=== PATIENT | female | born 1945 | race Caucasian/White ===

== ENCOUNTER 2017-10-14 22:59 | Inpatient (IN) | payer OTHER ==
[~2017-10-14] VITALS: Ht 154.9 cm; Wt 70.1 kg
[~2017-10-14 22:59] MED LIST: AMLO-114 PO; ASPEC81 PO; CLOP1TAB15 PO; CRG25 PO; LISI-725 PO; METH10TA6 PO; METO-157 PO; OXYC-57 PO; SIMV40TA2 PO
[2017-10-14] MEDS ORDERED: ASPIRIN 324 MG CHEW PO STA (23:13)
[2017-10-14] MEDS ORDERED: NITROGLYCERIN 0.4 MG SL PER TAB CHARGE SL PRN (23:15)
--- NOTE | 2017-10-14 23:18 | EMERGENCY ROOM VISIT NOTE ---
History Report prepared by Lilian: Raudel Whalen Under the Supervision of: Dr. Brennon Ruvalcaba M.D. First contact with patient: 23:06 Chief Complaint: CARDIAC ASSESSMENT Stated Complaint: SOB, LEFT ARM PAIN, TERRIBLE INDIGESTION History of Present Illness The patient is a 72 year old female with a history of COPD, lung cancer, and asthma who presents to the Emergency Room with complaints of persistent chest pain that started an hour ago. The patient describes the pain as a tight band- like pain and not sharp. She says that she thought it was indigestion initially. The patient notes that she has been short of breath as well, with some left arm pain. She notes that she uses oxygen sporadically at home. Per the nursing staff, the patient had an oxygen saturation of 87% prior to arrival. The patient says that she has had surgery to remove 2/3rd of her right lung due to the cancer. She denies any runny nose or recent flu-like symptoms. The patient states that she took Ibuprofen prior to arrival. She says that she takes Ativan on occasion, and took one tonight. The patient is an ex-smoker, and smoked for 40 years. She is here visiting family, and traveled here 2 days ago from the [facility]. The patient has a history of cardiac stenting many years ago, and has not had a recent evaluation. She also has a history of a left carotid endarterectomy. Source of History: patient, family, nursing staff Onset: An hour ago Position: chest Symptom Intensity: hx of COPD Quality: other (initially thought was indigestion) Timing: other (persistent) Associated Symptoms: + SOB Note: Associated symptoms: Left arm pain. 87% on room air. Denies runny nose or recent flu-like symptoms. Review of Systems See HPI for pertinent positives & negatives. A total of 10 systems reviewed and were otherwise negative. Past Medical & Surgical Medical Problems: (1) Asthma (2) Chest pain (3) COPD (chronic obstructive pulmonary disease) (4) COPD exacerbation (5) HTN (hypertension) (6) NSTEMI (non-ST elevated myocardial infarction) Surgical Problems: (1) History of left-sided carotid endarterectomy (2) Lung cancer Family History Family history omitted secondary to patient's advanced age. Social History Smoking Status: Former Smoker Drug Use: none Marital Status: Housing Status: lives with family Current/Historical Medications Scheduled Umeclidinium Baden (Incruse Ellipta), 1 PUFF INH DAILY Scheduled PRN Ibuprofen (Advil), 200-600 MG PO Q4H PRN for Pain Ranitidine Hcl (Zantac), 75 MG PO DAILY PRN for Indigestion Allergies Coded Allergies: No Known Allergies (Unverified , 10/14/17) Physical Exam Vital Signs Date Time Temp Pulse Resp B/P (MAP) Pulse Ox O2 Delivery O2 Flow Rate FiO2 10/15/17 00:38 91 22 184/83 100 Nasal Cannula 4.0 10/14/17 23:49 74 18 154/57 98 Nasal Cannula 4.0 10/14/17 23:36 71 18 179/86 99 Nasal Cannula 4.0 10/14/17 23:24 94 10/14/17 23:02 36.5 102 24 215/98 87 Room Air Physical Exam GENERAL: Patient is very uncomfortable appearing and in moderate/severe distress. HEENT: No acute trauma, normocephalic atraumatic, mucous membranes moist, no nasal congestion, no scleral icterus. NECK: No stridor, no adenopathy, no meningismus, trachea is midline. LUNGS: Patient has dyspnea and tachypnea, and is clutching left chest. HEART: Regular rate and rhythm. No murmurs, rubs, gallops appreciated. ABDOMEN: Soft, nontender, bowel sounds positive, no masses appreciated, no peritonitis. BACK: No midline tenderness, no CVA tenderness EXTREMITIES: Normal motion all extremities, no cyanosis, no edema. NEUROLOGIC: Alert and oriented, no acute motor or sensory deficits, no focal weakness, cranial nerves grossly intact. SKIN: No rash, no jaundice, no diaphoresis. Medical Decision & Procedures ER Provider Diagnostic Interpretation: X ray results are stated below per my interpretation: Chest: 1 view: Elevated right hemidiaphragm. Scarring of right lung base, no infiltrate, no effusions. Normal cardiac border. No widening of mediastinum. Similar to previous chest x-ray. CT results and stated below per my review and radiologist interpretation: CT chest for PE: No evidence of acute PE, no evidence of dissection. See report for further. Laboratory Results 10/14/17 23:15 Red Blood Count 5.18, Mean Corpuscular Volume 85.9, Mean Corpuscular Hemoglobin 28.6, Mean Corpuscular Hemoglobin Concent 33.3, Mean Platelet Volume 9.9, Neutrophils (%) (Auto) 71.7, Lymphocytes (%) (Auto) 17.5, Monocytes (%) (Auto) 9.2, Eosinophils (%) (Auto) 1.2, Basophils (%) (Auto) 0.2, Neutrophils # (Auto) 7.34, Lymphocytes # (Auto) 1.79, Monocytes # (Auto) 0.94, Eosinophils # (Auto) 0.12, Basophils # (Auto) 0.02 10/14/17 23:15 Test 10/14/17 23:15 10/14/17 23:25 10/14/17 23:29 White Blood Count 10.23 K/uL (4.8-10.8) Red Blood Count 5.18 M/uL (4.2-5.4) Hemoglobin 14.8 g/dL (12.0-16.0) Hematocrit 44.5 % (37-47) Mean Corpuscular Volume 85.9 fL (80-100) Mean Corpuscular Hemoglobin 28.6 pg (25-34) Mean Corpuscular Hemoglobin Concent 33.3 g/dl (32-36) Platelet Count 292 K/uL (130-400) Mean Platelet Volume 9.9 fL (7.4-10.4) Neutrophils (%) (Auto) 71.7 % Lymphocytes (%) (Auto) 17.5 % Monocytes (%) (Auto) 9.2 % Eosinophils (%) (Auto) 1.2 % Basophils (%) (Auto) 0.2 % Neutrophils # (Auto) 7.34 K/uL (1.4-6.5) Lymphocytes # (Auto) 1.79 K/uL (1.2-3.4) Monocytes # (Auto) 0.94 K/uL (0.11-0.59) Eosinophils # (Auto) 0.12 K/uL (0-0.5) Basophils # (Auto) 0.02 K/uL (0-0.2) RDW Standard Deviation 42.0 fL (36.4-46.3) RDW Coefficient of Variation 13.3 % (11.5-14.5) Immature Granulocyte % (Auto) 0.2 % Immature Granulocyte # (Auto) 0.02 K/uL (0.00-0.02) Prothrombin Time 10.0 SECONDS (9.0-12.0) Prothromb Time International Ratio 1.0 (0.9-1.1) Activated Partial Thromboplast Time 27.1 SECONDS (21.0-31.0) Partial Thromboplastin Ratio 1.0 D-Dimer 610 ug/L FEU (0-500) Est Creatinine Clear Calc Drug Dose 33.5 ml/min Estimated GFR () 42.5 Estimated GFR (Non- 36.7 BUN/Creatinine Ratio 15.8 (10-20) Calcium Level 9.8 mg/dl (8.5-10.1) Total Creatine Kinase 39 U/L (26-192) Creatine Kinase MB 2.2 ng/ml (0.5-3.6) Creatine Kinase MB Ratio 5.6 (0-3.0) Troponin I 0.517 ng/ml (0-0.045) Bedside Troponin I 0.470 ng/ml (0-0.045) Bedside Hemoglobin 16.0 g/dl (12.0-16.0) Bedside Hematocrit 47 % (37-47) Bedside Sodium 139 mEq/L (135-144) Bedside Potassium 3.6 mEq/L (3.3-5.0) Bedside Chloride 102 mEq/L (101-112) Bedside Total CO2 25 mEq/l (24-31) Anion Gap 16.0 mmol/L (16-25) Bedside Blood Urea Nitrogen 25 mg/dl (7-18) Bedside Creatinine 1.4 mg/dl (0.6-1.3) Bedside Glucose (other) 162 mg/dl (70-99) Bedside Ionized Calcium (Jonathan) 1.19 mmol/l (1.12-1.32) Laboratory results as reviewed by me. Medications Administered Medications (Trade) Dose Ordered Sig/Haley Route Start Time Stop Time Status Last Admin Dose Admin Aspirin (Aspirin Chew) 324 mg NOW STAT PO 10/14/17 23:13 10/14/17 23:14 DC 10/14/17 23:16 324 MG Nitroglycerin (Nitrostat Tab) 0.4 mg PRN PRN SL 10/14/17 23:15 10/15/17 02:29 DC 10/14/17 23:17 0.4 MG Sodium Chloride 500 ml @ 999 mls/hr Q31M STAT IV 1/4/18 00:13 10/15/17 00:43 DC 10/15/17 00:45 999 MLS/HR ECG Indication: chest pain Rate (beats per minute): 94 Rhythm: normal sinus Findings: ST depression (Anterolateral), no ectopy, other (no STEMI criteria, QTC 447) ED Course 2308: The patient was evaluated in room B3B. A complete history and physical exam was performed. 2328: I reevaluated the patient and she notes that her pain has already improved post-Nitroglycerin. 2340: I reevaluated the patient and she just got her 2nd Nitro, with vast improvement in chest pain, and she says the pain is almost gone. Her blood pressure is systolic 179. 2343: Upon reevaluation, the patient is feeling vastly better. Discussed results and treatment plan with the patient. She verbalized understanding and agreement with the treatment plan. The patient will be evaluated for further management. 0011: Discussed the patient's case with Dr. Sheffield - [facility] clerical clerk - the patient will be evaluated for further treatment and disposition. Dr. Sheffield requests that I go ahead and get a CT. 0019: I discussed the pros and cons of a CT with the patient, and she is agreeable. 0115: I reevaluated the patient and she has no further chest pain and is stable. Medical Decision Differential: Cardiac Ischemia (STEMI, NSTEMI, Unstable Angina, etc), Aortic Dissection, Arrhythmia, Pulmonary Embolism, Pneumonia, Pneumothorax, MSK, Infectious, Pericarditis/Myocarditis, Esophageal Rupture, Gastrointestinal, amongst other pathologies entertained. 72 yr old female arrives with acute left lower chest pressure. Quite dyspneic with mild hypoxia on arrival though admits long history of lung disease. She is also severely hypertensive. EKG on arrival very poor baseline due to patient unable to breath calmly, thus slight delay to good ekg after her calming down which revealed lateral ST depressions without STEMI. Given 2 SLNTG with complete resolution of pain, improvement in BP and patient feeling much better. Vitals normalizing and patient comfortable. Trop positive consistent with ACS that was initially suspected given EKG changes. This is all consistent with NSTEMI but given complete resolution of pain after 2nd Nitro felt reasonable to discuss with hospitalist prior to heparinization. Dimer mildly positive and with previous vitals and recent driving discussed with hospitalist who feels we should go ahead with CT PE study. Fortunately CT negative for acute findings. Heparin begun after prolonged discussion with patient and denies current contraindications and is aware of risks. Medication Reconcilliation Current Medication List: was personally reviewed by me Blood Pressure Screening Patient's blood pressure: Elevated blood pressure Monitored by hospitalist. Consults Time Called: 000 Consulting Physician: Dr. Nettie Oliva clerical clerk Returned Call: 001 Discussed the patient's case with Dr. Nettie Oliva clerical clerk - the patient will be evaluated for further treatment and disposition. Dr. Sheffield requests that I go ahead and get a CT. Impression Primary Impression: NSTEMI (non-ST elevated myocardial infarction) Additional Impression: Hypertensive emergency Scribe Attestation The scribe's documentation has been prepared under my direction and personally reviewed by me in its entirety. I confirm that the note above accurately reflects all work, treatment, procedures, and medical decision making performed by me. Departure Information Dispostion Being Evaluated By Hospitalist Referrals No Doctor, Assigned (PCP) Patient Instructions My [facility] [address] Problem Qualifiers
[2017-10-14] MEDS ORDERED: IBUP-1050 PO (23:32)
[2017-10-14] MEDS ORDERED: RANITAB33 PO (23:32)
[2017-10-14] MEDS ORDERED: UMEC1INH INH (23:32)
[2017-10-14 23:34] LABS: BASO % 0.2 %; BASO ABS # 0.02 K/uL (0-0.2); EOS % 1.2 %; EOS ABS # 0.12 K/uL (0-0.5); HEMATOCRIT 44.5 % (37-47); HEMOGLOBIN 14.8 g/dL (12.0-16.0); IG# 0.02 K/uL (0.00-0.02); LYMPH % 17.5 %; LYMPH ABS # 1.79 K/uL (1.2-3.4); MEAN CELL VOLUME 85.9 fL (80-100); MEAN CORPUSCULAR HEMOGLOBIN 28.6 pg (25-34); MEAN CORPUSCULAR HGB CONC 33.3 g/dl (32-36); MEAN PLATELET VOLUME 9.9 fL (7.4-10.4); MONO % 9.2 %; MONO ABS # 0.94 K/uL (0.11-0.59); NEUT % 71.7 %; NEUT ABS # 7.34 K/uL (1.4-6.5); PLATELET COUNT 292 K/uL (130-400); RED CELL DISTRIBUTION WIDTH CV 13.3 % (11.5-14.5); WHITE BLOOD COUNT 10.23 K/uL (4.8-10.8)
[2017-10-14 23:43] LABS: ISTAT CREATININE 1.4 mg/dl (0.6-1.3); ISTAT IONIZED CALCIUM 1.19 mmol/l (1.12-1.32); ISTAT POTASSIUM 3.6 mEq/L (3.3-5.0)
[2017-10-14 23:48] LABS: PTT PATIENT 27.1 SECONDS (21.0-31.0)
[2017-10-14 23:55] LABS: CALCIUM 9.8 mg/dl (8.5-10.1); CREATININE 1.44 mg/dl (0.60-1.20); POTASSIUM 3.5 mmol/L (3.5-5.1)
[2017-10-15] VITALS (16 sets, daily range): BP systolic 115–178; BP diastolic 63–84; PULSE 50–87; TEMP 36.4–37; O2SAT 87–99; Ht 154.9 cm; Wt 70.1 kg
[2017-10-15 00:04] LABS: CKMB 2.2 ng/ml (0.5-3.6)
[2017-10-15] MEDS ORDERED: SODIUM CHLORIDE 0.9% 500ML 500 ML IV STA (00:13)
[2017-10-15] MEDS ORDERED: OPTIRAY 320 IV PRN (00:30)
[2017-10-15] MEDS ORDERED: ONDANSETRON INJ 2 MG/ML 2 ML VIAL IV PRN (01:00)
[2017-10-15] MEDS ORDERED: RANITIDINE HCL 75 MG PO PRN (01:00)
[2017-10-15] MEDS ORDERED: ACETAMINOPHEN 325 MG TAB PO PRN ×2 (01:00→17:00)
[2017-10-15] MEDS ORDERED: ALBUTEROL 0.083% NEBU SOLN 3 ML VIAL INH PRN (01:00)
[2017-10-15] MEDS ORDERED: HEPARIN 25000 UNIT/500 ML D5W ONE (01:15)
[2017-10-15] MEDS ORDERED: HEPARIN SOD 5000 UNIT/0.5 ML CARP ONE (01:15)
--- NOTE | 2017-10-15 02:30 | HISTORY & PHYSICAL EXAMINATION ---
DATE OF ADMISSION: 10/14/2017 PRIMARY CARE PHYSICIAN: She does not have one. CHIEF COMPLAINT: Epigastric/lower central chest pain since around 9:00 p.m., associated with nausea and vomiting; and shortness of breath. HISTORY OF PRESENT COMPLAINT: She is a 72-year-old female with significant past medical history including lung cancer status post 2/3 of right lung resection in [address] [facility], did not require any chemo and/or radiation treatment; also history of CAD status post stent placement something around that time; hypertension; hypothyroidism; also cholelithiasis, status post cholecystectomy years ago. Apparently has been complaining of epigastric/lower central chest pressure and pain that goes to the back since around 9:00 p.m. The pain was associated with nausea and she vomited once. The condition did not improve especially with more shortness of breath. She was brought into the Emergency Room by her daughter. In the ER, she was noted to be in short of breath and apparent blood test came back positive for increased troponin to 0.5. Her EKG showed nonspecific ST-T wave changes, and her pain was relieved with sublingual nitro and also morphine; but given the history of chest pain and troponin elevation, she was admitted to telemetry unit. Also, she was having more shortness of breath likely secondary to exacerbation of COPD. PAST MEDICAL HISTORY: Significant for 2/3 of right lung resection due to carcinoma in 2009, did not require any chemo and/or radiation treatment; CAD, status post cardiac stent placement, detail of which is not known and that was many years ago; hypertension; hypothyroidism; and also COPD with emphysema, on home oxygen. PAST SURGICAL HISTORY: Significant for 2/3 of right lung resection in 2009, cardiac stent again, and cholecystectomy.Emphysema and COPD on Home Oxygen PRN FAMILY HISTORY: Significant that father of heart attack and sister of Hodgkin disease. SOCIAL HISTORY: She is a . She lives alone. She quit smoking about 8 years ago. She does not drink any alcohol. She has 4 children and she can do things for herself without any problem. ALLERGIES: NKDA. MEDICATIONS: She has been taking ibuprofen 200-600 mg q. 4 hours as needed for pain, ranitidine 75 mg tablet daily as needed for indigestion, and also Ellipta 1 inhalation as needed daily. REVIEW OF SYSTEMS: Other systemic review unremarkable except those mentioned in history of present complaint. PHYSICAL EXAMINATION: GENERAL: On examination in the Emergency Room, she was having some shortness of breath but heart pain was controlled. VITAL SIGNS: Temperature 36.5; pulse was initially 102, that came down to 91; saturation 100% on 4 liters; blood pressure initially very high of 215/98, that came down to 184/83. HEENT: Unremarkable. NECK: Supple. No JVD, no bruit. CHEST: Decreased breath sound all over but mostly on the right side. No definite wheezing and/or crackles. HEART: S1, S2 regular. ABDOMEN: Soft, benign, mildly tender in the epigastrium. No organomegaly. Bowel sounds present. EXTREMITIES: Negative for any edema. MUSCULOSKELETAL: Did not show any acute arthritis involving any joint. CENTRAL NERVOUS SYSTEM: She was alert, awake, oriented x3. No focal sensory and/or motor deficit appreciated. LABORATORY DATA: Noted today; white count was 10.23, H&H 14.8/47, platelet was 292. Sodium 139, potassium 3.6, chloride 102, carbon dioxide 28, BUN 23 and creatinine 1.44, random glucose 152, CK was 39, MB of 5.6. Troponin was 0.517. PT/INR unremarkable, but PTT was high at 610. EKG was in sinus rhythm, poor baseline, normal axis, 94 beats per minute and minor nonspecific ST-T wave changes. Chest x-ray: Status post right lung surgery and emphysema. CT of the chest is pending and report is pending at this time. ASSESSMENT AND PLAN: 1. Chest pain to rule out acute coronary syndrome. So far she has elevated troponin. Serial cardiac enzymes will be done and EKG in the morning. She will be started with intravenous heparin given the elevation of troponin, and she will be given pain medications as needed. 2. Chronic obstructive pulmonary disease exacerbation. She will be given nebulized bronchodilator and also a small dose of Solu-Medrol. Her inhalers will be continued. 3. History of hypertension. She does not take any medications. We will put her on small dose of beta geni for heart rate and blood pressure control, that will also help in any heart attack if she happens to be. 4. History of lung cancer, status post surgery, did not require any kind of chemo and/or radiation treatment. She is not having any problem from that at this time. 5. Gastrointestinal prophylaxis with ranitidine. We will increase the dose. 6. Deep venous thrombosis prophylaxis. She will be given intravenous heparin, but the CTA of the lung is pending right now for pulmonary embolism. CODE STATUS: Discussed with patient, she will be a full code for now. In my clinical assessment, the beneficiary meets criteria as per CMS for 2 midnight stay in the hospital. MTDD
[2017-10-15] MEDS: HEPARIN 25,000 UNIT/500ML D5W 500 ML IV PRN ×2 (03:00→07:00)
[2017-10-15] MEDS ORDERED: INFLUENZA ADMINISTRATION CHARGE ONE (04:30)
[2017-10-15] MEDS ORDERED: INFLUENZA VIRUS QUAD VACCINE 0.5 ML SYR IM. ONE (04:30)
[2017-10-15] MEDS ORDERED: METOPROLOL TARTRATE 25 MG TAB PO ONE (06:00)
--- NOTE | 2017-10-15 06:25 | DIAGNOSTIC IMAGING REPORT ---
CHEST ONE VIEW PORTABLE CLINICAL HISTORY: Chest Pain dyspnea COMPARISON STUDY: 01/12/2011 FINDINGS: Chronic elevation right hemidiaphragm. Chronic interstitial change right as well as left lung base. Upper lungs are considered clear. Moderate emphysematous change. IMPRESSION: Chronic interstitial change. Moderate emphysematous change. No acute process. The above report was generated using voice recognition software. It may contain grammatical, syntax or spelling errors. Electronically signed by: Ian Rai M.D. 10/15/2017 6:24 AM Dictated Date/Time: 10/15/2017 6:22 AM
--- NOTE | 2017-10-15 07:31 | DIAGNOSTIC IMAGING REPORT ---
CT ANGIOGRAM OF THE CHEST CLINICAL HISTORY: Atypical chest pain. Dyspnea. COMPARISON STUDY: Chest x-ray dated 10/14/2017. TECHNIQUE: Following the IV administration of 97 cc of Optiray 320, CT angiogram of the chest was performed from the upper abdomen to the thoracic inlet utilizing the pulmonary embolus protocol. Images are reviewed in the axial, sagittal, and coronal planes. 3-D MIPS images are created and assessed. IV contrast was administered without complication. A dose lowering technique was utilized adhering to the principles of ALARA. CT DOSE: 383.76 mGy.cm FINDINGS: Thyroid: The thyroid gland is enlarged, heterogeneous, and multinodular. The largest nodule is seen in the left lobe and measures up to 2.2 cm the thyroid gland extends into the superior mediastinum. Coarse calcifications are identified. Thoracic aorta: There is atherosclerotic calcification of the thoracic aorta, which is normal in caliber and demonstrates bovine variant arch anatomy. No dissection is seen. Pulmonary vasculature: The pulmonary trunk is normal in caliber. There are no filling defects identified in main, lobar, or segmental pulmonary branches to suggest pulmonary embolus. Heart: The heart is top normal in size and without pericardial effusion. There are coronary artery calcifications. Lungs and pleural spaces: Evaluation of the lung parenchyma is modestly degraded by motion artifact. Advanced emphysema is identified. Apical scarring is noted. There are postoperative changes from right lower and possibly middle lobe resection, with compensatory hyperinflation of the left lung. There is a 1.7 x 1.2 cm spiculated nodule in the right suprahilar region seen on image #207. Airspace consolidation is seen at the right lung base. No pleural effusion is identified. A small calcified granuloma seen in the left lung base. Left lung is otherwise clear. Mediastinum: There are mildly enlarged mediastinal lymph nodes. A precarinal node on image #198 measures 1.5 cm in short axis. Sandy: There is right hilar adenopathy. Right hilar nodes measure up to 1.8 cm in short axis. Left hilar nodes measure up to 1.1 cm in short axis. Axillae: There is no axillary lymphadenopathy. Upper abdomen: The kidneys demonstrate cortical atrophy, left greater than right. Bilateral parapelvic cysts are noted. A nonobstructing calculus is seen in the upper pole the left kidney. Cholecystectomy clips are observed. A small hiatal hernia is identified. Skeletal structures: The skeletal structures are osteopenic. No lytic or blastic bony lesions are seen. IMPRESSION: 1. There is no evidence of pulmonary embolus in the main, lobar, or segmental pulmonary arteries. 2. Advanced emphysema with postoperative change from right lower and possibly middle lobe resection. 3. There is patchy airspace consolidation at the right lung base, likely representing an infectious/inflammatory pneumonitis. 4. There is a 1.7 cm spiculated opacity in the right suprahilar region. This is nonspecific and could be on an infectious/inflammatory basis. Correlation with any prior outside imaging studies will be required. 2 month follow-up chest CT is recommended to document resolution as neoplasm could have this appearance. 5. There are mildly enlarged mediastinal and hilar lymph nodes. 6. Left-sided nephrolithiasis. 7. Multinodular goiter. 8. Additional findings as above. Electronically signed by: Rei Bateman M.D. 10/15/2017 7:30 AM Dictated Date/Time: 10/15/2017 7:03 AM
[2017-10-15 07:47] LABS: PTT PATIENT 39.1 SECONDS (21.0-31.0)
[2017-10-15] MEDS ORDERED: HEPARIN IV BOLUS 4,000 UNIT in SYRINGE 0 ML IV ONE (08:30)
[2017-10-15] MEDS: ASPIRIN 81 MG ECTAB PO SCH (08:51)
[2017-10-15] MEDS: RANITIDINE HCL 150 MG TAB PO SCH (08:51)
[2017-10-15] MEDS: METOPROLOL TARTRATE 25 MG TAB PO SCH ×3 (08:51→21:00)
--- NOTE | 2017-10-15 09:48 | CARDIOLOGY CONSULTATION ---
DATE OF CONSULTATION: 10/15/2017 REASON FOR CONSULTATION: NSTEMI. REFERRING PHYSICIAN: Dr. Coty Sheffield. HISTORY OF PRESENT ILLNESS: Ms. Hernadez is a 72-year-old female who presented to the Emergency Department with chest discomfort, described as severe indigestion. The patient became nauseated and vomited x1. Denies any associated shortness of breath. The pain did not radiate down her left arm. The pain persisted for more than 1 hour. She came to the Emergency Department and was noted to be hypoxic and hypertensive. She was treated with sublingual nitroglycerin and aspirin. Her discomfort resolved. She rested comfortably overnight without recurrent chest pain. No dysrhythmias on telemetry. She carries a history of remote coronary stenting more than 7 years ago. The patient is unsure of which artery was stented or the type of stent used. The procedure was performed in [facility]. She believes she was told that there were collaterals at the time of stenting. There was a questionable indication for her stenting as she recalls. She also carries a history of carotid vascular disease, status post left-sided CEA more than 4 years ago. She is not from the [facility]. She is an ex-smoker with a history of lung cancer and lung resection. On admission, the patient had a CT angiogram performed, which was negative for pulmonary embolus; however, enlarged hilar lymph nodes as well as a spiculated lesion was noted. Currently, the patient is resting comfortably. Denies chest pain or shortness of breath. She is pleasant and cooperative. She states that she has not taken aspirin, cholesterol lowering medicine, or beta-geni therapy in several years. Details of her medical history listed below is taken from her history. There are no prior records available for review from [facility] at this time. REVIEW OF SYSTEMS: The pertinent positives noted above. A comprehensive 10-system review is otherwise negative. PAST MEDICAL HISTORY: 1. Coronary artery disease with coronary artery stenting x1 in approximately 2009. 2. COPD. 3. Lung cancer, status post lung resection. 4. Hypertension. 5. Dyslipidemia. 6. Reactive airways disease. PAST SURGICAL HISTORY: 1. Left-sided carotid endarterectomy. 2. Lung resection. FAMILY HISTORY: Negative for premature CAD or sudden cardiac . OUTPATIENT MEDICATIONS: 1. Incruse Ellipta 1 puff daily. 2. Advil as needed. 3. Zantac as needed. ALLERGIES: No known drug allergies. SOCIAL HISTORY: Former tobacco use with a 40-pack year history. She is and lives with her family. She is retired. ECG on admission demonstrates sinus rhythm with anterolateral ST-T wave depression. 2D echo pending. TELEMETRY: Sinus rhythm, no dysrhythmia. LABORATORY DATA: Initial troponin 0.470. Repeat troponin 3.790. D-dimer 610. White blood cell count 10.23, hemoglobin 16.0, and platelet count 292. Chest x-ray, chronic interstitial change and emphysema. No acute process. CTA of the chest: No evidence of pulmonary embolus. Emphysema, patchy airspace consolidation of the right lung base, 1.7-cm spiculated passing the right suprahilar region. PHYSICAL EXAMINATION: VITAL SIGNS: Temperature is 36.5 degrees centigrade, pulse 74 beats per minute and regular, respiratory rate 18 breaths per minute, blood pressure 147/75, and SaO2 is 92% on room air. GENERAL: NAD, awake, alert and oriented x3. Pleasant and cooperative. HEENT: Mucous membranes are moist. No scleral icterus. Conjunctivae pink. NECK: Supple. There is a 2/4 left-sided carotid bruit. There is a left-sided CEA scar noted. HEART: Regular with a normal S1 and S2. There is no murmur, rub, or gallop. LUNGS: Demonstrate diminished breath sounds bilaterally. There are no rales, rhonchi or wheeze. ABDOMEN: Soft and nontender. There is no rebound or guarding. Normal bowel sounds. EXTREMITIES: Warm and dry without clubbing, cyanosis, or edema. NEUROLOGIC: Demonstrates no focal deficit. FINAL IMPRESSION: 1. [id number] myocardial infarction. 2. History of coronary artery disease with prior stenting to unknown vessel approximately 2009. 3. Carotid vascular disease, status post left-sided carotid endarterectomy and a soft bruit noted on exam. 4. Spiculated lung lesion with a history of prior lung cancer and lung resection. 5. Hypertension -- improved with addition of beta-geni therapy. 6. Dyslipidemia -- nonmedicated. 7. Former heavy tobacco use. PLAN AND RECOMMENDATIONS: I had a long discussion with the patient regarding the pathophysiology of her NSTEMI. Recommend cardiac catheterization for further evaluation. The risks, benefits, and alternatives to procedure were discussed at length. Her spiculated lesion will require pulmonary evaluation prior to procedure. We will continue intravenous heparin at this time. Low dose beta-geni initiated. I have ordered a high dose statin therapy, atorvastatin 80 mg daily. Also, we will begin IV hydration given mildly elevated creatinine on admission. The patient did receive 97 mL of Optiray contrast for her CTA. We will repeat her BMP this morning. 2D echo will be reviewed when available. The patient will be taken to the cleaner laboratory equipment urgently with any recurrent chest discomfort. Thank you for allowing me to take part in the care of your patient. I will continue to follow closely during hospitalization.
--- NOTE | 2017-10-15 09:58 | ECHOCARDIOGRAM REPORT ---
*NOTICE TO RECEIVING [employer]Y This information is strictly Confidential and protected under [place] law. [place] law prohibits you from making any further disclosure of this information unless further disclosure is expressly permitted by the written consent of the person to whom it pertains or is authorized by law. A general authorization for the release of medical or other information is not sufficient for this purpose. Hospital accepts no responsibility if the information is made available to any other person, INCLUDING THE PATIENT. Interpretation Summary * Name: YOLA CARPIO Study Date: 10/15/2017 07:42 AM BP: 147/75 mmHg * Patient Location: [facility] HR: 74 * : 1945 (M/d/yyyy) Gender: Female Height: 62 in * Age: 72 yrs Ethnicity: CA Weight: 156 lb * Ordering Physician: Coty Sheffield * Referring Physician: Self, Referred * Performed By: Kelsey Beach RDCS * * Reason For Study: CHEST PAIN * BSA: 1.7 m2 * The study was technically adequate. * Compared to prior study, changes are noted. * -- Conclusions -- * Ejection Fraction = 60-65%. * There is mild concentric left ventricular hypertrophy. * The basal inferior wall is severely hypokinetic to akinetic. * Aortic valve sclerosis moderate, without significant aortic valvular stenosis. * Grade I diastolic dysfunction, (abnormal relaxation pattern). * A patent foramen ovale is suspected. Procedure Details * A complete two-dimensional transthoracic echocardiogram was performed (2D, M-mode, Doppler and color flow Doppler). Left Ventricle * The left ventricle is normal in size. * There is no thrombus. * There is mild concentric left ventricular hypertrophy. * Ejection Fraction = 60-65%. * Left ventricular systolic function is normal. * The basal inferior wall is severely hypokinetic to akinetic. Right Ventricle * The right ventricle is normal size. * The right ventricular systolic function is normal as assessed by tricuspid annular plane systolic excursion (TAPSE) (normal >1.5 cm). Atria * The left atrial size is normal. * Right atrial size is normal. * A patent foramen ovale is suspected. Mitral Valve * The mitral valve is normal. * There is no mitral valve stenosis. * Significant mitral regurgitation is absent. Tricuspid Valve * The tricuspid valve is normal. * There is no tricuspid stenosis. * Significant tricuspid regurgitation is absent. Aortic Valve * The aortic valve is not well visualized. * Aortic valve sclerosis moderate, without significant aortic valvular stenosis. * Aortic stenosis is absent. * There is no significant aortic regurgitation. Pulmonic Valve * The pulmonary valve is not well seen, but the Doppler examination is normal without significant regurgitation or stenosis. Great Vessels * The aortic root is normal size. Pericardium/Pleural * There is no pericardial effusion. Great Vessels * Normal inferior vena cava diameter and respiratory variation suggests normal central venous pressure. Left Ventricular Diastolic Function * Grade I diastolic dysfunction, (abnormal relaxation pattern). MMode 2D Measurements and Calculations IVSd 1.2 cm IVSs 1.9 cm LVIDd 3.8 cm LVIDs 2.6 cm LVPWd 1.4 cm LVPWs 1.4 cm IVS/LVPW 0.87 FS 32.9 % EDV(Teich) 62.8 ml ESV(Teich) 23.8 ml EF(Teich) 62.1 % EDV(cubed) 55.8 ml ESV(cubed) 16.9 ml EF(cubed) 69.8 % % IVS thick 59.5 % % LVPW thick -2.82 % LV mass(C)d 176.9 grams LV mass(C)dI 102.8 grams/m\S\2 LV mass(C)s 155.0 grams LV mass(C)sI 90.1 grams/m\S\2 SV(Teich) 39.0 ml SI(Teich) 22.7 ml/m\S\2 SV(cubed) 39.0 ml SI(cubed) 22.7 ml/m\S\2 Ao root diam 2.8 cm Ao root area 6.1 cm\S\2 LA dimension 3.6 cm LA/Ao 1.3 LVAd ap4 22.3 cm\S\2 LVLd ap4 8.8 cm EDV(MOD-sp4) 48.6 ml EDV(sp4-el) 47.9 ml LVAs ap4 12.2 cm\S\2 LVLs ap4 7.1 cm ESV(MOD-sp4) 20.4 ml ESV(sp4-el) 17.8 ml EF(MOD-sp4) 58.0 % EF(sp4-el) 62.9 % LVAd ap2 24.5 cm\S\2 LVLd ap2 8.4 cm EDV(MOD-sp2) 61.2 ml EDV(sp2-el) 61.1 ml LVAs ap2 14.2 cm\S\2 LVLs ap2 7.1 cm ESV(MOD-sp2) 28.6 ml ESV(sp2-el) 24.2 ml EF(MOD-sp2) 53.2 % EF(sp2-el) 60.5 % LVLd %diff -5.32 % EDV(MOD-bp) 56.2 ml LVLs %diff -0.36 % ESV(MOD-bp) 24.1 ml EF(MOD-bp) 57.1 % SV(MOD-sp4) 28.2 ml SI(MOD-sp4) 16.4 ml/m\S\2 SV(MOD-sp2) 32.5 ml SI(MOD-sp2) 18.9 ml/m\S\2 SV(MOD-bp) 32.0 ml SI(MOD-bp) 18.6 ml/m\S\2 SV(sp4-el) 30.1 ml SI(sp4-el) 17.5 ml/m\S\2 SV(sp2-el) 37.0 ml SI(sp2-el) 21.5 ml/m\S\2 Doppler Measurements and Calculations MV E max lynnette 70.6 cm/sec MV A max lynnette 91.7 cm/sec MV E/A 0.77 MV dec time 0.31 sec Ao V2 max 150.1 cm/sec Ao max PG 9.0 mmHg Ao max PG (full) 5.4 mmHg LV V1 max PG 3.6 mmHg LV V1 max 95.4 cm/sec
[2017-10-15] MEDS ORDERED: SODIUM CHLORIDE 0.9% 1000ML 1,000 ML IV SCH (10:00)
[2017-10-15 10:12] LABS: CALCIUM 9.2 mg/dl (8.5-10.1); CREATININE 1.11 mg/dl (0.60-1.20); POTASSIUM 4.2 mmol/L (3.5-5.1)
--- NOTE | 2017-10-15 11:12 | DIAGNOSTIC IMAGING REPORT ---
CAROTID DOPPLER NECK ART HISTORY: Mental status change left sided bruit, prior left CEA COMPARISON: None. TECHNIQUE: Real-time, grayscale, and color Doppler sonography of the carotid arteries was performed. Imaging reviewed in the transverse and longitudinal planes. All measurements were calculated based on NASCET criteria. FINDINGS: Antegrade flow is seen in the bilateral vertebral arteries. The brachial pressures are hemodynamically similar. Moderate plaque formation bilaterally. The peak systolic velocity within the right ICA is 90. The right systolic ratio is 1.2. The peak systolic velocity within the left ICA is 120. The left systolic ratio is 1.4. IMPRESSION: 1. Moderate plaque bilaterally. 2. No significant stenotic process. The above report was generated using voice recognition software. It may contain grammatical, syntax or spelling errors. Electronically signed by: Ian Rai M.D. 10/15/2017 11:11 AM Dictated Date/Time: 10/15/2017 11:08 AM
[2017-10-15] MEDS: ATORVASTATIN 40 MG TAB PO SCH (11:13)
--- NOTE | 2017-10-15 12:53 | Progress Note ---
Internal Med Progress Note Date of Service: Oct 15, 2017. Provider Documentation: SUBJECTIVE: Seen and examined at bedside States feeling much better chris compared to yesterday Chest/Epigastric pain resolved Denies SOB, dizziness on IV heparin Planned for Cardiac cath OBJECTIVE: Vital Signs-as noted below Physical Exam: Vitals signs as noted above General Appearance:Moderately built and nourished, no apparent distress Head: normocephalic, Atraumatic Eyes: normal inspection, EOMI, PERRL Neck: supple, Trachea midline Respiratory/Chest: Decreased breath sounds, CTA Cardiovascular: S1, S2, No murmur Abdomen/GI:Soft, Non tender, Bowel sounds present Extremities/Musculoskelatal:normal inspection, no edema Neurologic/Psych:AAOX3, grossly no focal neurological deficits Skin: normal color, warm Lab data as noted below. ASSESSMENT & PLAN: NSTEMI: H/O CAD S/P stent in 2009 Elevated troponin EKG: ST depression in anterolateral leads Continue IV heparin Continue Aspirin, statin, metoprolol Planned for cardiac cath Appreciate Cardiology Input ECHO as below CTA: No PE Spiculated lung lesion on CT scan: H/O lung cancer, status post surgery CT suggestive of patchy consolidation or R lung base, likely pneumonitis, mediastinal lymphadenopathy No fever, leukocytosis Pulmonology consulted H/O Carotid vascular disease S/P left-sided carotid endarterectomy Carotid Doppler:Moderate plaque bilaterally. No significant stenotic process Continue ASA, Statins COPD: No signs of exacerbation continue Nebs H/O HTN: Not on any medications DVT Px: on IV heparin CODE STATUS: full code Disposition: Monitor in Tele PROCEDURES: CTA: 1. There is no evidence of pulmonary embolus in the main, lobar, or segmental pulmonary arteries. 2. Advanced emphysema with postoperative change from right lower and possibly middle lobe resection. 3. There is patchy airspace consolidation at the right lung base, likely representing an infectious/inflammatory pneumonitis. 4. There is a 1.7 cm spiculated opacity in the right suprahilar region. This is nonspecific and could be on an infectious/inflammatory basis. Correlation with any prior outside imaging studies will be required. 2 month follow-up chest CT is recommended to document resolution as neoplasm could have this appearance. 5. There are mildly enlarged mediastinal and hilar lymph nodes. 6. Left-sided nephrolithiasis. 7. Multinodular goiter. 8. Additional findings as above. ECHO: Ejection Fraction = 60-65%. * There is mild concentric left ventricular hypertrophy. * The basal inferior wall is severely hypokinetic to akinetic. * Aortic valve sclerosis moderate, without significant aortic valvular stenosis. * Grade I diastolic dysfunction, (abnormal relaxation pattern). * A patent foramen ovale is suspected. Vital Signs: Date Time Temp Pulse Resp B/P (MAP) Pulse Ox O2 Delivery O2 Flow Rate FiO2 10/15/17 11:04 37.0 50 18 115/70 (85) 94 Room Air 10/15/17 08:00 92 Room Air 10/15/17 07:13 36.5 74 18 147/75 (99) 92 Room Air 10/15/17 05:09 36.5 70 17 147/66 (93) 99 10/15/17 04:00 Nasal Cannula 2.0 10/15/17 01:50 98 Nasal Cannula 2.0 10/15/17 01:50 36.6 87 18 178/84 98 Nasal Cannula 2.0 10/15/17 01:36 72 20 161/78 98 10/15/17 00:38 91 22 184/83 100 Nasal Cannula 4.0 10/14/17 23:49 74 18 154/57 98 Nasal Cannula 4.0 10/14/17 23:36 71 18 179/86 99 Nasal Cannula 4.0 10/14/17 23:24 94 10/14/17 23:02 36.5 102 24 215/98 87 Room Air Lab Results: Results Past 24 Hours Test 10/14/17 23:15 10/14/17 23:25 10/14/17 23:29 10/15/17 07:22 Range/Units White Blood Count 10.23 4.8-10.8 K/uL Red Blood Count 5.18 4.2-5.4 M/uL Hemoglobin 14.8 12.0-16.0 g/dL Hematocrit 44.5 37-47 % Mean Corpuscular Volume 85.9 80-100 fL Mean Corpuscular Hemoglobin 28.6 25-34 pg Mean Corpuscular Hemoglobin Concent 33.3 32-36 g/dl Platelet Count 292 130-400 K/uL Mean Platelet Volume 9.9 7.4-10.4 fL Neutrophils (%) (Auto) 71.7 % Lymphocytes (%) (Auto) 17.5 % Monocytes (%) (Auto) 9.2 % Eosinophils (%) (Auto) 1.2 % Basophils (%) (Auto) 0.2 % Neutrophils # (Auto) 7.34 1.4-6.5 K/uL Lymphocytes # (Auto) 1.79 1.2-3.4 K/uL Monocytes # (Auto) 0.94 0.11-0.59 K/uL Eosinophils # (Auto) 0.12 0-0.5 K/uL Basophils # (Auto) 0.02 0-0.2 K/uL RDW Standard Deviation 42.0 36.4-46.3 fL RDW Coefficient of Variation 13.3 11.5-14.5 % Immature Granulocyte % (Auto) 0.2 % Immature Granulocyte # (Auto) 0.02 0.00-0.02 K/uL Prothrombin Time 10.0 9.0-12.0 SECONDS Prothromb Time International Ratio 1.0 0.9-1.1 Activated Partial Thromboplast Time 27.1 39.1 21.0-31.0 SECONDS Partial Thromboplastin Ratio 1.0 1.5 D-Dimer 610 0-500 ug/L FEU Sodium Level 136 136-145 mmol/L Potassium Level 3.5 3.5-5.1 mmol/L Chloride Level 102 98-107 mmol/L Carbon Dioxide Level 28 21-32 mmol/L Anion Gap 6.0 16.0 16-25 mmol/L Blood Urea Nitrogen 23 7-18 mg/dl Creatinine 1.44 0.60-1.20 mg/dl Est Creatinine Clear Calc Drug Dose 33.5 ml/min Estimated GFR () 42.5 Estimated GFR (Non- 36.7 BUN/Creatinine Ratio 15.8 10-20 Random Glucose 156 70-99 mg/dl Calcium Level 9.8 8.5-10.1 mg/dl Total Creatine Kinase 39 26-192 U/L Creatine Kinase MB 2.2 0.5-3.6 ng/ml Creatine Kinase MB Ratio 5.6 0-3.0 Troponin I 0.517 3.790 0-0.045 ng/ml Bedside Troponin I 0.470 0-0.045 ng/ml Bedside Hemoglobin 16.0 12.0-16.0 g/dl Bedside Hematocrit 47 37-47 % Bedside Sodium 139 135-144 mEq/L Bedside Potassium 3.6 3.3-5.0 mEq/L Bedside Chloride 102 101-112 mEq/L Bedside Total CO2 25 24-31 mEq/l Bedside Blood Urea Nitrogen 25 7-18 mg/dl Bedside Creatinine 1.4 0.6-1.3 mg/dl Bedside Glucose (other) 162 70-99 mg/dl Bedside Ionized Calcium (Jonathan) 1.19 1.12-1.32 mmol/l Triglycerides Level 104 0-150 mg/dl Cholesterol Level 177 0-200 mg/dl HDL Cholesterol 49 mg/dl LDL Cholesterol, Calculated 107 mg/dl VLDL Cholesterol, Calculated 21 mg/dl Cholesterol/HDL Ratio 3.6 Test 10/15/17 09:37 10/15/17 13:07 Range/Units Sodium Level 137 136-145 mmol/L Potassium Level 4.2 3.5-5.1 mmol/L Chloride Level 105 98-107 mmol/L Carbon Dioxide Level 27 21-32 mmol/L Anion Gap 5.0 3-11 mmol/L Blood Urea Nitrogen 18 7-18 mg/dl Creatinine 1.11 0.60-1.20 mg/dl Est Creatinine Clear Calc Drug Dose 42.3 ml/min Estimated GFR () 58.3 Estimated GFR (Non- 50.3 BUN/Creatinine Ratio 16.4 10-20 Random Glucose 103 70-99 mg/dl Calcium Level 9.2 8.5-10.1 mg/dl
[2017-10-15 14:35] LABS: PTT PATIENT 61.3 SECONDS (21.0-31.0)
--- NOTE | 2017-10-15 14:37 | Pulmonary Consultation ---
History General Date of Service: Oct 15, 2017. Stated Complaint: Chest Pain, Copd Exacerbation, Nstemi HPI The patient is a 72 year old female who presents to [facility] with complaints of Chest Pain, Copd Exacerbation, Nstemi. The patient's primary care provider is No Doctor, Assigned. Mrs. Hernadez is a 72-year-old female with past medical history of COPD, FEV1 unknown with intermittent oxygen use at home, right lung cancer status post lung resection, hypertension, coronary artery disease, and NSTEMI status post stent who presents to the ER on 10/14/2017 with complaints of persistent epigastric/midsternal chest pain. Patient thought the pain was due to indigestion. She initially became nauseated and had 1 episode of nonbilious nonbloody vomiting. However pain persisted for more than an hour and was associated with radiation to the left arm and shortness of breath which prompted her to come to hospital for further evaluation. She denies any fevers , chills, cough, hemoptysis, weight loss, or change in appetite. She denies any orthopnea, lower extremity edema swelling. She denies any dyspnea on exertion. She denies any sick contacts. She does admit to recent travel as she is here in the [place] area visiting family. She states that she did have recent pneumonia and was hospitalized about 3 months ago. She does follow up with a first aid attendant who follows her lung cancer surveillance and COPD. Upon arrival to the ER she was noted to be hypoxic to about 87% on room air. Her temperature was 36.5, pulse 102, respiratory rate 24, blood pressure 215/ 98. She was placed on 4 L/m nasal cannula with improvement of her pulse oximetry 99%. N the ER she was given 500 mL normal saline bolus 1, nitroglycerin 0.4 mg sublingual tab, aspirin 324 mg by mouth tab. EKG showed normal sinus rhythm at 94 beats a minute. There is ST depression present. Post nitroglycerin and morphine, chest pain resolved. However troponins were positive. Initial troponin was 0.517. Subsequent troponins 3.79 and 3.99. Other significant laboratory data shows a BUN 23 and creatinine of 1.44. Random glucose 156. Her initial d-dimer was 610. Initial chest x-ray showed chronic elevation of right hemidiaphragm; chronic interstitial changes in right and left lung bases, with moderate emphysematous changes. She had a CT angiogram of the chest done to rule out pulmonary embolism, which was negative. CT angiogram however showed multinodular thyroid with largest nodule measuring 2.2 cm extending into the superior mediastinum. The lung parenchyma showed advanced emphysematous changes with apical scarring. There also postoperative changes noted in the right middle and lower lobe status post resection with compensatory inflammation of the left lung. There was also 1.7 x 1.2 cm spiculated nodule in the right suprahilar region as well consolidation at seen in the right lung base. She has small calcified granuloma was seen in the left lung base. There is also mediastinal and precarinal lymphadenopathy. She was started on heparin drip and admitted to hospital for non-STEMI. Pulmonary was consulted for evaluation of spiculated lesion prior to cardiac catheterization. At the time of my evaluation, patient sitting comfortably in bed. She is not in any distress. She denies any shortness of breath. Historian: patient Onset: just prior to arrival Severity: moderate Complaint Status: persistent Quality of Pain: burning, pressure Modifying Factors: pain medication Review of Systems Constitutional: reports: as stated in HPI Eyes: reports: as stated in HPI ENT: reports: as stated in HPI Cardiovascular: reports: as stated in HPI Respiratory: reports: as stated in HPI Gastrointestinal: reports: as stated in HPI Genitourinary - Female: reports: as stated in HPI Musculoskeletal: reports: as stated in HPI Integumentary: reports: as stated in HPI Neurologic: reports: as stated in HPI Psychiatric: reports: as stated in HPI Endocrine: as stated in HPI Hematologic / Lymphatic: as stated in HPI Allergic / Immunologic: as stated in HPI All Other Symptoms All Other Systems: Reviewed and Negative Past Medical History Past Medical History: COPD, FEV1 unknown Lung cancer status post lung resection, cell type unknown Coronary artery disease status post stent 1 in 2009 Hypothyroidism Hypertension Dyslipidemia Cholelithiasis Past Surgical History: Lung resection Cardiac catheterization Left-sided carotid endarterectomy Cholecystectomy Family History Father of CAD status post myocardial infarction. Sr. of Hodgkin's disease. Social History His previous smoking history of 40 pack years. She quit about 8 years ago She denies any alcohol or illicit drug use. She is retired and . Lives with family at home alone. Hx Tobacco Use In Past Year?: No Smoking Status: Former Smoker Marital status: Immunizations History of Influenza Vaccine: Yes Influenza Vaccine Date: Jul 12, 2010 History of Tetanus Vaccine?: No History of Pneumococcal: Yes Pneumococcal Date: Jul 12, 2010 History of Hepatitis B Vaccine: No History of MDRO History of MDRO: No Allergies Coded Allergies: No Known Allergies (Unverified , 10/14/17) Current Medications Reported Home Medications Medications Dose Route/Sig Max Daily Dose Days Date Category Zantac (Ranitidine Hcl) 75 Mg Tab 75 Mg PO DAILY PRN 10/14/17 Reported Advil (Ibuprofen) 200 Mg Tab 200-600 Mg PO Q4H PRN 10/14/17 Reported Incruse Ellipta (Umeclidinium Machias) 62.5 Mcg/Inh Inh 1 Puff INH DAILY 10/14/17 Reported Physical Physical Exam Vital Signs: Date Time Temp Pulse Resp B/P (MAP) Pulse Ox O2 Delivery O2 Flow Rate FiO2 10/15/17 12:00 93 Room Air 10/15/17 11:04 37.0 50 18 115/70 (85) 94 Room Air 10/15/17 08:00 92 Room Air 10/15/17 07:13 36.5 74 18 147/75 (99) 92 Room Air 10/15/17 05:09 36.5 70 17 147/66 (93) 99 10/15/17 04:00 Nasal Cannula 2.0 10/15/17 01:50 98 Nasal Cannula 2.0 10/15/17 01:50 36.6 87 18 178/84 98 Nasal Cannula 2.0 10/15/17 01:36 72 20 161/78 98 10/15/17 00:38 91 22 184/83 100 Nasal Cannula 4.0 10/14/17 23:49 74 18 154/57 98 Nasal Cannula 4.0 10/14/17 23:36 71 18 179/86 99 Nasal Cannula 4.0 10/14/17 23:24 94 10/14/17 23:02 36.5 102 24 215/98 87 Room Air General Appearance: WD/WN, NO APPARENT DISTRESS, uncomfortable Head: NORMOCEPHALIC, ATRAUMATIC Eyes: NO DISCHARGE, EOMI, SCLERAE NORMAL, CONJUNCTIVAE NORMAL ENT: NORMAL NASAL EXAM, NORMAL MOUTH EXAM, NORMAL THROAT EXAM Neck: NORMAL RANGE OF MOTION, NO TENDERNESS, TRACHEA MIDLINE, thyromegaly Respiratory: other (decreased breath sounds bilaterally, no crackles, no wheezing) Cardiovasular: REGULAR RATE/RHYTHM, NORMAL S1S2, NO M/G/R Abdomen: NON TENDER, NORMAL BOWEL SOUNDS, NO REBOUND Back: NORMAL INSPECTION, NO MIDLINE TENDERNESS, NO CVA TENDERNESS Upper Extremities: NO EDEMA, NO DEFORMITY, NORMAL ROM, other (no cyanosis, no clubbing) Lower Extremities: NO EDEMA, NO DEFORMITY, NORMAL ROM Pulses: dorsalis pedis (R), dorsalis pedis (L) (2+) Neuro: ALERT, ORIENTED x 3, NORMAL MOTOR EXAM, NORMAL SENSATION, NORMAL CEREBELLAR EXAM, NORMAL SPEECH, NORMAL MEMORY Psychiatric: NORMAL AFFECT, NO SUICIDAL IDEATION, CONTRACTS FOR SAFETY Diagnostics Labs Results Past 24 Hours Test 10/14/17 23:15 10/14/17 23:25 10/14/17 23:29 10/15/17 07:22 Range/Units White Blood Count 10.23 4.8-10.8 K/uL Red Blood Count 5.18 4.2-5.4 M/uL Hemoglobin 14.8 12.0-16.0 g/dL Hematocrit 44.5 37-47 % Mean Corpuscular Volume 85.9 80-100 fL Mean Corpuscular Hemoglobin 28.6 25-34 pg Mean Corpuscular Hemoglobin Concent 33.3 32-36 g/dl Platelet Count 292 130-400 K/uL Mean Platelet Volume 9.9 7.4-10.4 fL Neutrophils (%) (Auto) 71.7 % Lymphocytes (%) (Auto) 17.5 % Monocytes (%) (Auto) 9.2 % Eosinophils (%) (Auto) 1.2 % Basophils (%) (Auto) 0.2 % Neutrophils # (Auto) 7.34 1.4-6.5 K/uL Lymphocytes # (Auto) 1.79 1.2-3.4 K/uL Monocytes # (Auto) 0.94 0.11-0.59 K/uL Eosinophils # (Auto) 0.12 0-0.5 K/uL Basophils # (Auto) 0.02 0-0.2 K/uL RDW Standard Deviation 42.0 36.4-46.3 fL RDW Coefficient of Variation 13.3 11.5-14.5 % Immature Granulocyte % (Auto) 0.2 % Immature Granulocyte # (Auto) 0.02 0.00-0.02 K/uL Prothrombin Time 10.0 9.0-12.0 SECONDS Prothromb Time International Ratio 1.0 0.9-1.1 Activated Partial Thromboplast Time 27.1 39.1 21.0-31.0 SECONDS Partial Thromboplastin Ratio 1.0 1.5 D-Dimer 610 0-500 ug/L FEU Sodium Level 136 136-145 mmol/L Potassium Level 3.5 3.5-5.1 mmol/L Chloride Level 102 98-107 mmol/L Carbon Dioxide Level 28 21-32 mmol/L Anion Gap 6.0 16.0 16-25 mmol/L Blood Urea Nitrogen 23 7-18 mg/dl Creatinine 1.44 0.60-1.20 mg/dl Est Creatinine Clear Calc Drug Dose 33.5 ml/min Estimated GFR () 42.5 Estimated GFR (Non- 36.7 BUN/Creatinine Ratio 15.8 10-20 Random Glucose 156 70-99 mg/dl Calcium Level 9.8 8.5-10.1 mg/dl Total Creatine Kinase 39 26-192 U/L Creatine Kinase MB 2.2 0.5-3.6 ng/ml Creatine Kinase MB Ratio 5.6 0-3.0 Troponin I 0.517 3.790 0-0.045 ng/ml Bedside Troponin I 0.470 0-0.045 ng/ml Bedside Hemoglobin 16.0 12.0-16.0 g/dl Bedside Hematocrit 47 37-47 % Bedside Sodium 139 135-144 mEq/L Bedside Potassium 3.6 3.3-5.0 mEq/L Bedside Chloride 102 101-112 mEq/L Bedside Total CO2 25 24-31 mEq/l Bedside Blood Urea Nitrogen 25 7-18 mg/dl Bedside Creatinine 1.4 0.6-1.3 mg/dl Bedside Glucose (other) 162 70-99 mg/dl Bedside Ionized Calcium (Jonathan) 1.19 1.12-1.32 mmol/l Triglycerides Level 104 0-150 mg/dl Cholesterol Level 177 0-200 mg/dl HDL Cholesterol 49 mg/dl LDL Cholesterol, Calculated 107 mg/dl VLDL Cholesterol, Calculated 21 mg/dl Cholesterol/HDL Ratio 3.6 Test 10/15/17 09:37 10/15/17 13:07 Range/Units Sodium Level 137 136-145 mmol/L Potassium Level 4.2 3.5-5.1 mmol/L Chloride Level 105 98-107 mmol/L Carbon Dioxide Level 27 21-32 mmol/L Anion Gap 5.0 3-11 mmol/L Blood Urea Nitrogen 18 7-18 mg/dl Creatinine 1.11 0.60-1.20 mg/dl Est Creatinine Clear Calc Drug Dose 42.3 ml/min Estimated GFR () 58.3 Estimated GFR (Non- 50.3 BUN/Creatinine Ratio 16.4 10-20 Random Glucose 103 70-99 mg/dl Calcium Level 9.2 8.5-10.1 mg/dl Troponin I 3.990 0-0.045 ng/ml Diagnostic Radiology CHEST ONE VIEW PORTABLE CLINICAL HISTORY: Chest Pain dyspnea COMPARISON STUDY: 01/12/2011 FINDINGS: Chronic elevation right hemidiaphragm. Chronic interstitial change right as well as left lung base. Upper lungs are considered clear. Moderate emphysematous change. IMPRESSION: Chronic interstitial change. Moderate emphysematous change. No acute process. CT ANGIOGRAM OF THE CHEST IMPRESSION: 1. There is no evidence of pulmonary embolus in the main, lobar, or segmental pulmonary arteries. 2. Advanced emphysema with postoperative change from right lower and possibly middle lobe resection. 3. There is patchy airspace consolidation at the right lung base, likely representing an infectious/inflammatory pneumonitis. 4. There is a 1.7 cm spiculated opacity in the right suprahilar region. This is nonspecific and could be on an infectious/inflammatory basis. CAROTID DOPPLER NECK ART IMPRESSION: 1. Moderate plaque bilaterally. 2. No significant stenotic process. Transthoracic echocardiogram -- Conclusions -- * Ejection Fraction = 60-65%. * There is mild concentric left ventricular hypertrophy. * The basal inferior wall is severely hypokinetic to akinetic. * Aortic valve sclerosis moderate, without significant aortic valvular stenosis. * Grade I diastolic dysfunction, (abnormal relaxation pattern). * A patent foramen ovale is suspected. Impression Assessment and Plan Non-ST elevation myocardial infarction COPD, FEV1 unknown Right lung cancer status post resection Spiculated pulmonary nodule in the right suprahilar region Mediastinal , hilar and precarinal lymphadenopathy Hypertension Diastolic dysfunction Ms. Wadsworth is a 72-year-old female who presents with acute substernal/ epigastric chest pain. Found to have elevated troponins consistent with NSTEMI. She also was noted to be diaphoretic with dyspneic surrounding this episode which resolved with nitroglycerin and morphine. CT of the chest was done to rule out pulmonary embolism, however revealed a spiculated suprahilar 1.7 cm nodule as well as mediastinal, precarinal and bilateral hilar lymphadenopathy. With her history of previous malignancy and tobacco use this is quite concerning for recurrence of disease. There is also right lower lobe opacification, this may represent infection versus atelectasis. In terms of pulmonary nodule, she should have a PET scan done as outpatient. A bronchoscopy with biopsy is warranted for tissue diagnosis, ultimately. However , guidelines recommend that no bronchoscopic intervention be done within 6 weeks surrounding a myocardial event. I do recommend prompt evaluation after this time. She also has multi nodular thyroid, which she states she has had for a while. She is unsure about work up surround this. Continue with current management. I do not think she is having a COPD exacerbation and shows no signs of pneumonic process. I don't think that treatment with antibiotics is needed at this time. Continue with Incruse ellipta and nebulizer treatment when necessary. Please obtain most recent CT chest from first aid attendant. I appreciate the consult. Please contact with me further questions or concerns.
[2017-10-15] MEDS ORDERED: NiCARDipine HCL INJ 2.5 MG/ML 10 ML AMP ONE (14:59)
[2017-10-15] MEDS ORDERED: NITROGLYCERIN/D5W 100MCG/ML 20ML SYR ONE (15:00)
[2017-10-15] MEDS ORDERED: MIDAZOLAM HCL 1 MG/ML 2ML VIAL ONE ×2 (15:00→16:15)
[2017-10-15] MEDS ORDERED: HEPARIN SOD (PORCINE) 1000 UNIT/ML 10 ML VIAL ONE (15:01)
[2017-10-15] MEDS ORDERED: FENTANYL CITRATE INJ 50 MCG/1 ML 2 ML VIAL ONE (15:01)
--- NOTE | 2017-10-15 16:27 | Pre Sedation Assessment ---
Pre Sedation Assessment General Date of Sedation: Oct 15, 2017. Vital Signs Past 12 Hours Date Time Temp Pulse Resp B/P (MAP) Pulse Ox O2 Delivery O2 Flow Rate FiO2 10/15/17 12:00 93 Room Air 10/15/17 11:04 37.0 50 18 115/70 (85) 94 Room Air 10/15/17 08:00 92 Room Air 10/15/17 07:13 36.5 74 18 147/75 (99) 92 Room Air 10/15/17 05:09 36.5 70 17 147/66 (93) 99 Review Cardiovascular: regular rate, rhythm, no murmur, normal peripheral pulses Lungs: chest non-tender, lungs clear, normal breath sounds Pre-Sedation Airway Assessment Smoking Status: Former Smoker Short Thick Neck: No Oral Cavity: WNL ASA Classification: Class IV NPO Status Date of Last Intake of Fluids: Oct 14, 2017 Date of Last Intake of Solids: Oct 14, 2017 Procedure Planning Contraindications for Sedation: None Current Medications Reviewed: Yes Notes The planned sedation has been discussed with the patient. Informed Consent was obtained. I have identified the patient, determined the appropriateness of sedation and have assessed the patient immediately prior to the procedure. All medicine(s) and interventions are by my order.
--- NOTE | 2017-10-15 16:28 | Post Sedation Assessment ---
Post Sedation Assessment General Date of Sedation Oct 15, 2017. Vital Signs: Vital Signs Past 12 Hours Date Time Temp Pulse Resp B/P (MAP) Pulse Ox O2 Delivery O2 Flow Rate FiO2 10/15/17 12:00 93 Room Air 10/15/17 11:04 37.0 50 18 115/70 (85) 94 Room Air 10/15/17 08:00 92 Room Air 10/15/17 07:13 36.5 74 18 147/75 (99) 92 Room Air 10/15/17 05:09 36.5 70 17 147/66 (93) 99 Post Procedure Recovery Score Activity: (2) Moves 4 extremities * Respiration: (2) Deep breath/cough Circulation: (2) +/-20% PreAnes Value Consciousness: (2) Fully Awake Oxygen Saturation: (2) > 92% On Room Air Discharge Sedation Level of Care: Phase I Post Sedation Plan On clinical assessment, the patient appears to have tolerated the sedation without complications. Patient is recovering as anticipated. Patient will continue to be monitored by nursing and may be discharged when sedation discharge criteria are met per below protocol. Upon Completions of procedure and additional 15 minutes continue every 5 minute vital signs and the P.A.R. score; then discharge to a Phase I or Fast Track to Phase II per the following guidelines: * Discharge Patient to appropriate Phase II area if PAR is 8 or greater or return to pre- procedure baseline. The post - procedure orders will be as directed. * If PAR score is less than 8 or not return to pre-procedure baseline then patient will follow Phase I monitoring till PAR is reached for Phase II. The Phase I may be done in procedure room or may call to secure a Phase I area. * If naloxone or flumazenil are used for reversal, hold in Phase I for an additional 60 -120 minutes before discharge to Phase II. Please call the Sedation Physician to re-evaluate and complete post-note for discharge to Phase II area. Do NOT discharge from procedure sedation or Phase 1 until post- sedation evaluation note is complete by procedure /sedation MD Sedation Discharge Instructions to be given to the patient at discharge to home.
--- NOTE | 2017-10-15 16:43 | Cardiac Catheterization ---
Procedure Note Procedure Date Oct 15, 2017. Pre-Procedure Diagnosis Non STEMI AUC Score 8 Post-Procedure Diagnosis Severe CAD Procedure(s) Performed Coronary Angiography Body Painter Dr. Williamson Beauty Culturist Apprentice(s) Estimated Blood Loss 5cc Medication(s) Fentanyl, Heparin, Nicardipine, Nitroglycerin, Versed, Lidocaine 1% Summary of Findings 99% mid RCA (culprit) 75% mid Lcx Hemodynamics Rest Ao: 142/58/89 Final Ao: 104/54 LV: N/A Recommendations PCI without planned CABG Specimens None Radiation Exposure (mGy) 660 Contrast (mls) 55 Anesthesia Moderate sedation. Start 1536. End 1620. Sedation monitor Lori Celis RN Procedural Complication(s) None Disposition Patient remained in laborer brush clearing for PCI to RCA ACC Data Cardiac Status Clinical evaluation leading to the procedure CAD Presntation: Non STEMI Anginal Classification: CCS IV Heart Failure: No Cardiogenic Shock w/in 24Hrs: No Cardiac Arrest w/in 24Hrs: No Imaging studies past 6 months: Yes Stress studies past 6 months: No Standard Exercise Stress Test: No Stress Echocardiogram: No Stress Testing w/SPECT MPI: No Cardiac CTA: No Coronary Anatomy Dominant: Right Left Main (% Stenosis): Ostial (20% taper) LAD (% Stenosis): Proximal (10%), Mid (20%), Distal (10%) D1 (% Stenosis): Ostial (20%) D2 (% Stenosis): Ostial (20%), Mid (10%) D3 (% Stenosis): Proximal (30%) Circumflex (% Stenosis): Mid (75%) OM1 (% Stenosis): Ostial (100% FILM SPOOLER) RCA (% Stenosis): Proximal (20%), Mid (99%), Distal (patent stent with 30% instent restenosis, 30% distal to PDA) R PDA (% Stenosis): Mid (30%) R PL1 (% Stenosis): Ostial (40%) R PL2 (% Stenosis): Mid (20%) AM (% Stenosis): Ostial (100% FILM SPOOLER fills via left to right collaterals) Diagnostic Status: Urgent Closure Device Percutaneous Entry Location: Radial (Radial spasm noted during case) Closure Device: Radial Band Intraprocedure Events Significant Dissection: No Perforation: No
[2017-10-15] MEDS ORDERED: CLOPIDOGREL BISULFATE 300 MG TAB PO ONE (16:46)
[2017-10-15] MEDS ORDERED: NITROGLYCERIN 0.4 MG SL PER TAB CHARGE SL PRN (17:00)
--- NOTE | 2017-10-15 17:12 | Cardiac Catheterization ---
Procedure Note Procedure Date Oct 15, 2017. Pre-Procedure Diagnosis Non STEMI AUC Score 8 Post-Procedure Diagnosis Severe CAD Procedure(s) Performed Bare Metal Stent Integration Developer Cesario Diamond Broker(s) Cesario Estimated Blood Loss 10 Medication(s) Fentanyl, Heparin, Nitroglycerin, Versed Summary of Findings Indication: NSTEMI Access: 6Fr slender right radial artery Catheters: 5Fr JR4 For full details of patient's coronary angiography please see cath report dictated by Dr. Williamson. -- PCI of mid RCA -- Antithrombotic therapy: Heparin, Clopidogrel Procedure: RCA cannulated with JR4 guide BMW wire passed across lesion into distal vessel Mid RCA lesion predilated with 2.5 compliant balloon Dilated lesion stented with 3.0 x 15 Integrity BMS Stent post-dilated with 3.0 noncompliant balloon IC vasodilators administered for spasm Post procedure RESHMA 3 flow, stent well expanded with minimal residual stenosis and no apparent cardiac complications. Arterial Closure: TR Band Summary: 1. Successful PCI of mid RCA with single bare-metal stent (3.0 x 15 Integrity) Recommendations: To PCU for continued monitoring Loaded with Clopidogrel 600 mg Continue dual-antiplatelet therapy for at least 1 month Continue statin, ASCVD risk factor modification per Dr. Williamson Consult cardiac Rehab Hemodynamics Rest Ao: 142/58/89 Final Ao: 137/48/84 LV: -- Recommendations PCI without planned CABG Specimens None Radiation Exposure (mGy) 1462 Contrast (mls) 90 Fluids (cc crystalloids) 150 Drains None Anesthesia Moderate Procedural Complication(s) None Disposition PCU ACC Data Cardiac Status Clinical evaluation leading to the procedure CAD Presntation: Non STEMI Anginal Classification: CCS IV Heart Failure: No, NYHA Class: CCS I Cardiogenic Shock w/in 24Hrs: No Cardiac Arrest w/in 24Hrs: No Imaging studies past 6 months: Yes Stress studies past 6 months: No Diagnostic Physician's Name: Ra Williamson, Status: Elective Closure Device Percutaneous Entry Location: Radial Closure Device: Radial Band Recommendations: PCI without planned CABG PCI Indication: PCI for high risk Non-STEMI Lesion Segment Name: mid RCA Culprit Artery: Yes Stenosis Prior to Rx (%): 99 Chronic Total Occlusion: No IVUS: No FFR: No Pre-Procedure RESHMA Flow: 3 Previously Treated Lesion: No Lesion Complexity: Non-High/Non-C Lesion Length (mm): 10 Thrombus Present: No Bifurcation Lesion: No Guidewire Across Lesion: Yes Guidewire: Stenosis Post-Procedure (%): 0 Post-Procedure RESHMA Flow: 3 Device(s) Deployed: Yes Intraprocedure Events Significant Dissection: No Perforation: No
[2017-10-15] MEDS: SODIUM CHLORIDE 0.9% 1000ML 1,000 ML IV SCH ×2 (19:00→20:47)
[2017-10-15] MEDS ORDERED: LORAZEPAM 0.5 MG TAB PO ONE (19:45)
[2017-10-16 03:32] VITALS: BP 91/61; PULSE 67; TEMP 36.7; O2SAT 93
[2017-10-16 07:12] LABS: PTT PATIENT 26.8 SECONDS (21.0-31.0)
[2017-10-16 07:16] LABS: BASO % 0.3 %; BASO ABS # 0.02 K/uL (0-0.2); EOS % 2.3 %; EOS ABS # 0.15 K/uL (0-0.5); HEMATOCRIT 36.8 % (37-47); HEMOGLOBIN 11.9 g/dL (12.0-16.0); IG# 0.01 K/uL (0.00-0.02); LYMPH % 16.1 %; LYMPH ABS # 1.05 K/uL (1.2-3.4); MEAN CELL VOLUME 86.2 fL (80-100); MEAN CORPUSCULAR HEMOGLOBIN 27.9 pg (25-34); MEAN CORPUSCULAR HGB CONC 32.3 g/dl (32-36); MEAN PLATELET VOLUME 9.4 fL (7.4-10.4); MONO ABS # 0.65 K/uL (0.11-0.59); NEUT % 71.1 %; NEUT ABS # 4.65 K/uL (1.4-6.5); PLATELET COUNT 241 K/uL (130-400); RED CELL DISTRIBUTION WIDTH CV 13.3 % (11.5-14.5); RED CELL DISTRIBUTION WIDTH SD 41.8 fL (36.4-46.3); WHITE BLOOD COUNT 6.53 K/uL (4.8-10.8)
[2017-10-16 07:32] LABS: CREATININE 1.12 mg/dl (0.60-1.20); POTASSIUM 4.2 mmol/L (3.5-5.1)
--- NOTE | 2017-10-16 08:00 | Clinical Documentation Query ---
AUGUSTA Crisostomo : CLINICAL DOCUMENTATION QUERY Please clarify operative report for coronary angiography, angioplasty, and stent insertion performed on 10/15/17. Procedure note documentation includes the following: "Procedure(s) Performed Drug Eluting Stent" AND "Successful PCI of mid RCA with single bare-metal stent (3.0 x 15 Integrity)" Please clarify and amend as necessary as this impacts accurate DRG assignment. Thank you. Please clarify and document your clinical opinion in the progress notes and discharge summary. Terms such as "probable", "suspected", "likely", "questionable", "possible", or "still to be ruled out" are acceptable. IF IN AGREEMENT, YOU MUST DOCUMENT ABOVE DIAGNOSTIC STATEMENT IN DAILY PROGRESS NOTES AND DISCHARGE SUMMARY. This document is not part of the patient's record. Thank You, Diogenes Kim, TRACEY [phone]
[2017-10-16 08:03] VITALS: BP 90/60; PULSE 66; TEMP 36.8; O2SAT 94
[2017-10-16] MEDS ORDERED: CLOPIDOGREL BISULFATE 75 MG TAB PO SCH (09:00)
[2017-10-16] MEDS: METOPROLOL TARTRATE 25 MG TAB PO SCH (09:40)
[2017-10-16] MEDS: RANITIDINE HCL 150 MG TAB PO SCH (09:40)
[2017-10-16] MEDS: ASPIRIN 81 MG ECTAB PO SCH (09:40)
[2017-10-16] MEDS: ATORVASTATIN 40 MG TAB PO SCH (09:40)
--- NOTE | 2017-10-16 10:16 | Cardiology Follow-Up ---
Subjective General Date of Service: Oct 16, 2017. Pt evaluation today including: conversation w/ patient, physical exam, chart review, lab review, review of studies, review of inpatient medication list History of Present Illness The patient is a 72 year old female seen in follow-up. Feeling well from a cardiovascular standpoint. Mild hypotension recorded in the evening. Patient denies chest pain or unusual shortness of breath. Denies lightheadedness, dizziness, syncope or near-syncope. Tolerating medications. Has questions regarding results of her CT of the chest. She will be moving to the [facility] in November. Allergies Coded Allergies: No Known Allergies (Unverified , 10/14/17) Social History Smoking Status: Former Smoker Hx Tobacco Use In Past Year?: No Hx Alcohol Use - Type And Amou: No Hx Substance Use - Type And Am: No Problem List Medical Problems: (1) Hypertensive emergency Status: Acute (2) NSTEMI (non-ST elevated myocardial infarction) Status: Acute Review of Systems Respiratory: + dyspnea on exertion, No cough, No sputum, No wheezing, No shortness of breath, No dyspnea at rest, No hemoptysis Cardiac: No chest pain, No orthopnea, No PND, No edema, No claudication, No palpitations Physical Exam Vital Signs Last Vital Signs Documentation Date Time Temp Pulse Resp B/P (MAP) Pulse Ox O2 Delivery O2 Flow Rate FiO2 10/16/17 08:03 36.8 66 18 90/60 (70) 94 10/16/17 04:00 Nasal Cannula 2.0 Physical Exam Constitutional: General Apperance: heathly-appearing Level of Distress: NAD Ambulation: ambulating normally Head: normocephalic, atraumatic ENMT: normal ENT inspection Neck: supple, trachea midline Lungs: Auscultation: breath sounds normal, no wheezing, no rales/crackles, no rhonchi Cardiovascular: Heart Auscultation: RRR, normal S1, normal S2, I/ GURPREET Peripheral Pulses: Bruits: carotid bruit on the left, carotid bruit on the right Radial Pulse: normal on the right Femoral Pulse: normal on the right Abdomen: Bowel Sounds: normal Inspection & Palpation: soft, non-distended, no tenderness, guarding & rebound Liver: non-tender Musculoskeletal: normal, normal strength (5/5 throughout) Extremities: no cyanosis, no edema, no clubbing, no ulcers Neurologic: Gait & Station: pertinent finding (No focal motor deficit) Cranial Nerves: grossly intact Assessment and Plan Assessment and Plan Final impression: 1. NSTEMI with 99% mid RCA culprit vessel. Patient received bare-metal stent. Residual 75% mid circumflex (small vessel) manage medically. 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 Patent distal RCA stent noted with 30% ISR. 2. Preserved left ventricular systolic function with small a subtle inferior wall motion abnormality. 3. Dyslipidemia - tolerating 80mg atorvastatin 4. Carotid vascular disease status post left-sided carotid endarterectomy - moderate bilateral plaque noted on repeat duplex 5. HTN - controlled 6. Spiculated lung mass with history of prior lung CA and lobectomy Plan/Recommendations: Patient was continue dual antiplatelet therapy uninterrupted for a minimum of 4 weeks status post bare metal stent implantation, preferably 3 months if possible. She is agreeable to high-dose statin therapy and low-dose beta geni. I'll transition metoprolol tartrate to Toprol-XL 25 mg daily. Plan repeat resting 2-D transthoracic echo in 6-12 weeks. She'll have a repeat fasting lipid panel and CMP in 6-12 weeks as well. I will arrange for outpatient cardiology follow-up in 2 weeks. Laboratory Results Last 24 Hours Test 10/15/17 13:07 10/15/17 13:58 10/15/17 16:12 10/16/17 06:50 Troponin I 3.990 ng/ml Activated Partial Thromboplast Time 61.3 SECONDS 26.8 SECONDS Partial Thromboplastin Ratio 2.4 1.0 Kaolin Activated Coagulation Time 191 SECONDS White Blood Count 6.53 K/uL Red Blood Count 4.27 M/uL Hemoglobin 11.9 g/dL Hematocrit 36.8 % Mean Corpuscular Volume 86.2 fL Mean Corpuscular Hemoglobin 27.9 pg Mean Corpuscular Hemoglobin Concent 32.3 g/dl Platelet Count 241 K/uL Mean Platelet Volume 9.4 fL Neutrophils (%) (Auto) 71.1 % Lymphocytes (%) (Auto) 16.1 % Monocytes (%) (Auto) 10.0 % Eosinophils (%) (Auto) 2.3 % Basophils (%) (Auto) 0.3 % Neutrophils # (Auto) 4.65 K/uL Lymphocytes # (Auto) 1.05 K/uL Monocytes # (Auto) 0.65 K/uL Eosinophils # (Auto) 0.15 K/uL Basophils # (Auto) 0.02 K/uL RDW Standard Deviation 41.8 fL RDW Coefficient of Variation 13.3 % Immature Granulocyte % (Auto) 0.2 % Immature Granulocyte # (Auto) 0.01 K/uL Sodium Level 138 mmol/L Potassium Level 4.2 mmol/L Chloride Level 106 mmol/L Carbon Dioxide Level 24 mmol/L Anion Gap 8.0 mmol/L Blood Urea Nitrogen 15 mg/dl Creatinine 1.12 mg/dl Est Creatinine Clear Calc Drug Dose 41.8 ml/min Estimated GFR () 57.6 Estimated GFR (Non- 49.7 BUN/Creatinine Ratio 13.0 Random Glucose 90 mg/dl Calcium Level 9.0 mg/dl Magnesium Level 2.2 mg/dl
--- NOTE | 2017-10-16 11:06 | Progress Note ---
Internal Med Progress Note Date of Service: Oct 16, 2017. Provider Documentation: SUBJECTIVE: Seen and examined at bedside Feels well today Had cardiac catheterization yesterday Denies any Chest/Epigastric pain, SOB, dizziness No other complaints OBJECTIVE: Vital Signs-as noted below Physical Exam: Vitals signs as noted above General Appearance:Moderately built and nourished, no apparent distress Head: normocephalic, Atraumatic Eyes: normal inspection, EOMI, PERRL Neck: supple, Trachea midline Respiratory/Chest: Decreased breath sounds, CTA Cardiovascular: S1, S2, No murmur Abdomen/GI:Soft, Non tender, Bowel sounds present Extremities/Musculoskelatal:normal inspection, no edema Neurologic/Psych:AAOX3, grossly no focal neurological deficits Skin: normal color, warm Lab data as noted below. ASSESSMENT & PLAN: NSTEMI: S/P Bare metal stent to mid RCA H/O CAD S/P stent in 2009 Elevated troponin EKG: ST depression in anterolateral leads Continue Aspirin, Plavix, statin, metoprolol Appreciate Cardiology Input ECHO as below CTA: No PE Needs repeat ECHO in 6-12 weeks Spiculated lung lesion on CT scan: H/O lung cancer, status post surgery CT suggestive of patchy consolidation or R lung base, likely pneumonitis, mediastinal lymphadenopathy No fever, leukocytosis Appreciate Pulmonology Input Would likely need PET scan and Bronchoscopy as outpatient H/O Carotid vascular disease S/P left-sided carotid endarterectomy Carotid Doppler:Moderate plaque bilaterally. No significant stenotic process Continue ASA, Statins, Plavix COPD: On chronic Oxygen: Patient states she only uses as needed No signs of exacerbation continue Nebs H/O HTN: Not on any medications DVT Px: IV heparin CODE STATUS: full code Disposition: Plan to discharge home today Follow up with your Primary Care Physician in 1 week Follow up with your Literacy Teacher in 2 weeks as advised Follow up with your Plastics Factory Worker on 10/20/17 at 11:30am Get repeat resting 2-D transthoracic echo in 6-12 weeks. Get blood test (fasting lipid panel and CMP) in 6-12 weeks. Spiculated pulmonary nodule in the right suprahilar region is noted on your CT chest Discuss with your Plastics Factory Worker regarding need for PET scan and Bronchoscopy PROCEDURES: CTA: 1. There is no evidence of pulmonary embolus in the main, lobar, or segmental pulmonary arteries. 2. Advanced emphysema with postoperative change from right lower and possibly middle lobe resection. 3. There is patchy airspace consolidation at the right lung base, likely representing an infectious/inflammatory pneumonitis. 4. There is a 1.7 cm spiculated opacity in the right suprahilar region. This is nonspecific and could be on an infectious/inflammatory basis. Correlation with any prior outside imaging studies will be required. 2 month follow-up chest CT is recommended to document resolution as neoplasm could have this appearance. 5. There are mildly enlarged mediastinal and hilar lymph nodes. 6. Left-sided nephrolithiasis. 7. Multinodular goiter. 8. Additional findings as above. Cardiac Catheterization: Successful PCI of mid RCA with single bare-metal stent (3.0 x 15 Integrity) Recommendations: To PCU for continued monitoring Loaded with Clopidogrel 600 mg Continue dual-antiplatelet therapy for at least 1 month Continue statin, ASCVD risk factor modification per Dr. Williamson Consult cardiac Rehab ECHO: Ejection Fraction = 60-65%. * There is mild concentric left ventricular hypertrophy. * The basal inferior wall is severely hypokinetic to akinetic. * Aortic valve sclerosis moderate, without significant aortic valvular stenosis. * Grade I diastolic dysfunction, (abnormal relaxation pattern). * A patent foramen ovale is suspected. Vital Signs: Date Time Temp Pulse Resp B/P (MAP) Pulse Ox O2 Delivery O2 Flow Rate FiO2 10/16/17 08:03 36.8 66 18 90/60 (70) 94 10/16/17 04:00 Nasal Cannula 2.0 10/16/17 03:32 36.7 67 18 91/61 (71) 93 2.0 10/15/17 23:59 Nasal Cannula 2.0 10/15/17 23:35 36.7 70 16 164/64 (97) 99 10/15/17 21:15 79 18 162/77 (105) 97 Room Air 10/15/17 20:00 Nasal Cannula 2.0 10/15/17 19:34 61 18 130/78 (95) 98 10/15/17 19:17 36.4 62 18 159/63 (95) 98 Nasal Cannula 2.0 10/15/17 18:34 36.9 61 18 129/66 (87) 91 Nasal Cannula 2.0 10/15/17 18:15 67 129/71 (90) 89 Room Air 10/15/17 17:59 72 133/63 (86) 88 Room Air 10/15/17 17:45 68 143/68 (93) 91 Room Air 10/15/17 17:29 68 153/67 (95) 10/15/17 17:14 78 18 148/73 (98) 87 10/15/17 16:53 71 16 125/67 (86) 98 Room Air 10/15/17 16:43 72 16 132/67 (88) 98 Room Air 10/15/17 12:00 93 Room Air 10/15/17 11:04 37.0 50 18 115/70 (85) 94 Room Air Lab Results: Results Past 24 Hours Test 10/15/17 13:07 10/15/17 13:58 10/15/17 16:12 10/16/17 06:50 Range/Units Troponin I 3.990 0-0.045 ng/ml Activated Partial Thromboplast Time 61.3 26.8 21.0-31.0 SECONDS Partial Thromboplastin Ratio 2.4 1.0 Kaolin Activated Coagulation Time 191 94-140 SECONDS White Blood Count 6.53 4.8-10.8 K/uL Red Blood Count 4.27 4.2-5.4 M/uL Hemoglobin 11.9 12.0-16.0 g/dL Hematocrit 36.8 37-47 % Mean Corpuscular Volume 86.2 80-100 fL Mean Corpuscular Hemoglobin 27.9 25-34 pg Mean Corpuscular Hemoglobin Concent 32.3 32-36 g/dl Platelet Count 241 130-400 K/uL Mean Platelet Volume 9.4 7.4-10.4 fL Neutrophils (%) (Auto) 71.1 % Lymphocytes (%) (Auto) 16.1 % Monocytes (%) (Auto) 10.0 % Eosinophils (%) (Auto) 2.3 % Basophils (%) (Auto) 0.3 % Neutrophils # (Auto) 4.65 1.4-6.5 K/uL Lymphocytes # (Auto) 1.05 1.2-3.4 K/uL Monocytes # (Auto) 0.65 0.11-0.59 K/uL Eosinophils # (Auto) 0.15 0-0.5 K/uL Basophils # (Auto) 0.02 0-0.2 K/uL RDW Standard Deviation 41.8 36.4-46.3 fL RDW Coefficient of Variation 13.3 11.5-14.5 % Immature Granulocyte % (Auto) 0.2 % Immature Granulocyte # (Auto) 0.01 0.00-0.02 K/uL Sodium Level 138 136-145 mmol/L Potassium Level 4.2 3.5-5.1 mmol/L Chloride Level 106 98-107 mmol/L Carbon Dioxide Level 24 21-32 mmol/L Anion Gap 8.0 3-11 mmol/L Blood Urea Nitrogen 15 7-18 mg/dl Creatinine 1.12 0.60-1.20 mg/dl Est Creatinine Clear Calc Drug Dose 41.8 ml/min Estimated GFR () 57.6 Estimated GFR (Non- 49.7 BUN/Creatinine Ratio 13.0 10-20 Random Glucose 90 70-99 mg/dl Calcium Level 9.0 8.5-10.1 mg/dl Magnesium Level 2.2 1.8-2.4 mg/dl
[2017-10-16] MEDS ORDERED: LPT40 PO (11:09)
[2017-10-16] MEDS ORDERED: ASPEC81 PO (11:09)
[2017-10-16] MEDS ORDERED: TPRSR25 PO (11:09)
[2017-10-16] MEDS ORDERED: PLV75 PO (11:09)
--- NOTE | 2017-10-16 11:12 | Discharge Summary ---
Discharge Summary Date of Service Oct 16, 2017. Discharge Summary Admission Date: Oct 15, 2017 at 00:54 Discharge Date: Oct 16, 2017 Discharge Disposition: Home Principal Diagnosis: NSTEMI S/P Stent to RCA Procedures: NSTEMI S/P Stent to RCA Carotid Doppler: 1. Moderate plaque bilaterally. 2. No significant stenotic process. ECHO: * Ejection Fraction = 60-65%. * There is mild concentric left ventricular hypertrophy. * The basal inferior wall is severely hypokinetic to akinetic. * Aortic valve sclerosis moderate, without significant aortic valvular stenosis. * Grade I diastolic dysfunction, (abnormal relaxation pattern). * A patent foramen ovale is suspected. CTA: 1. There is no evidence of pulmonary embolus in the main, lobar, or segmental pulmonary arteries. 2. Advanced emphysema with postoperative change from right lower and possibly middle lobe resection. 3. There is patchy airspace consolidation at the right lung base, likely representing an infectious/inflammatory pneumonitis. 4. There is a 1.7 cm spiculated opacity in the right suprahilar region. This is nonspecific and could be on an infectious/inflammatory basis. Correlation with any prior outside imaging studies will be required. 2 month follow-up chest CT is recommended to document resolution as neoplasm could have this appearance. 5. There are mildly enlarged mediastinal and hilar lymph nodes. 6. Left-sided nephrolithiasis. 7. Multinodular goiter. 8. Additional findings as above. Consultations: Cardiology, Pulmonology Pending Studies/Follow-Up: Follow up with your Primary Care Physician in 1 week Follow up with your Middle School Librarian in 2 weeks as advised Follow up with your Apartment Rental Clerk on 10/20/17 at 11:30am Get repeat resting 2-D transthoracic echo in 6-12 weeks. Get blood test (fasting lipid panel and CMP) in 6-12 weeks. Spiculated pulmonary nodule in the right suprahilar region is noted on your CT chest Discuss with your Apartment Rental Clerk regarding need for PET scan and Bronchoscopy Medication Reconciliation New Medications: Aspirin (Aspirin EC Low Dose) 81 Mg Ectab 81 MG PO QAM for 30 Days, #30 EA 2 Refills Atorvastatin (Atorvastatin Calcium) 40 Mg Tab 80 MG PO QAM for 30 Days, #60 TAB 2 Refills Clopidogrel Bisulfate (Clopidogrel) 75 Mg Tab 75 MG PO QAM for 30 Days, #30 TAB 2 Refills Metoprolol Succinate (Metoprolol Succinate ER) 25 Mg Tabcr 25 MG PO QAM for 30 Days, #30 EA 2 Refills Continued Medications: Ibuprofen (Advil) 200 Mg Tab 200-600 MG PO Q4H PRN for Pain, TAB Ranitidine Hcl (Zantac) 75 Mg Tab 75 MG PO DAILY PRN for Indigestion, TAB Umeclidinium [place] (Incruse Ellipta) 62.5 Mcg/Inh Inh 1 PUFF INH DAILY Admission Information HPI (per Admitting provider): CHIEF COMPLAINT: Epigastric/lower central chest pain since around 9:00 p.m., associated with nausea and vomiting; and shortness of breath. HISTORY OF PRESENT COMPLAINT: She is a 72-year-old female with significant past medical history including lung cancer status post 2/3 of right lung resection in [address] [facility], did not require any chemo and/or radiation treatment; also history of CAD status post stent placement something around that time; hypertension; hypothyroidism; also cholelithiasis, status post cholecystectomy years ago. Apparently has been complaining of epigastric/lower central chest pressure and pain that goes to the back since around 9:00 p.m. The pain was associated with nausea and she vomited once. The condition did not improve especially with more shortness of breath. She was brought into the Emergency Room by her daughter. In the ER, she was noted to be in short of breath and apparent blood test came back positive for increased troponin to 0.5. Her EKG showed nonspecific ST-T wave changes, and her pain was relieved with sublingual nitro and also morphine; but given the history of chest pain and troponin elevation, she was admitted to telemetry unit. Also, she was having more shortness of breath likely secondary to exacerbation of COPD. Physical Exam (per Admitting): PHYSICAL EXAMINATION: GENERAL: On examination in the Emergency Room, she was having some shortness of breath but heart pain was controlled. VITAL SIGNS: Temperature 36.5; pulse was initially 102, that came down to 91; saturation 100% on 4 liters; blood pressure initially very high of 215/98, that came down to 184/83. HEENT: Unremarkable. NECK: Supple. No JVD, no bruit. CHEST: Decreased breath sound all over but mostly on the right side. No definite wheezing and/or crackles. HEART: S1, S2 regular. ABDOMEN: Soft, benign, mildly tender in the epigastrium. No organomegaly. Bowel sounds present. EXTREMITIES: Negative for any edema. MUSCULOSKELETAL: Did not show any acute arthritis involving any joint. CENTRAL NERVOUS SYSTEM: She was alert, awake, oriented x3. No focal sensory and/or motor deficit appreciated. Hospital Course NSTEMI: S/P Bare metal stent to mid RCA H/O CAD S/P stent in 2009 Elevated troponin EKG: ST depression in anterolateral leads Continue Aspirin, Plavix, statin, metoprolol Appreciate Cardiology Input ECHO as below CTA: No PE Needs repeat ECHO in 6-12 weeks Spiculated lung lesion on CT scan: H/O lung cancer, status post surgery CT suggestive of patchy consolidation or R lung base, likely pneumonitis, mediastinal lymphadenopathy No fever, leukocytosis Appreciate Pulmonology Input Would likely need PET scan and Bronchoscopy as outpatient H/O Carotid vascular disease S/P left-sided carotid endarterectomy Carotid Doppler:Moderate plaque bilaterally. No significant stenotic process Continue ASA, Statins, Plavix COPD: On chronic Oxygen: Patient states she only uses as needed No signs of exacerbation continue Nebs H/O HTN: Not on any medications DVT Px: IV heparin CODE STATUS: full code Disposition: Plan to discharge home today Follow up with your Primary Care Physician in 1 week Follow up with your Middle School Librarian in 2 weeks as advised Follow up with your Apartment Rental Clerk on 10/20/17 at 11:30am Get repeat resting 2-D transthoracic echo in 6-12 weeks. Get blood test (fasting lipid panel and CMP) in 6-12 weeks. Spiculated pulmonary nodule in the right suprahilar region is noted on your CT chest Discuss with your Apartment Rental Clerk regarding need for PET scan and Bronchoscopy PROCEDURES: CTA: 1. There is no evidence of pulmonary embolus in the main, lobar, or segmental pulmonary arteries. 2. Advanced emphysema with postoperative change from right lower and possibly middle lobe resection. 3. There is patchy airspace consolidation at the right lung base, likely representing an infectious/inflammatory pneumonitis. 4. There is a 1.7 cm spiculated opacity in the right suprahilar region. This is nonspecific and could be on an infectious/inflammatory basis. Correlation with any prior outside imaging studies will be required. 2 month follow-up chest CT is recommended to document resolution as neoplasm could have this appearance. 5. There are mildly enlarged mediastinal and hilar lymph nodes. 6. Left-sided nephrolithiasis. 7. Multinodular goiter. 8. Additional findings as above. Cardiac Catheterization: Successful PCI of mid RCA with single bare-metal stent (3.0 x 15 Integrity) Recommendations: To PCU for continued monitoring Loaded with Clopidogrel 600 mg Continue dual-antiplatelet therapy for at least 1 month Continue statin, ASCVD risk factor modification per Dr. Williamson Consult cardiac Rehab ECHO: Ejection Fraction = 60-65%. * There is mild concentric left ventricular hypertrophy. * The basal inferior wall is severely hypokinetic to akinetic. * Aortic valve sclerosis moderate, without significant aortic valvular stenosis. * Grade I diastolic dysfunction, (abnormal relaxation pattern). * A patent foramen ovale is suspected. Total time spent on discharge = 35 minutes This includes examination of the patient, discharge planning, medication reconciliation, and communication with other providers. Discharge Instructions Discharge Instructions Date of Service Oct 16, 2017. Admission Reason for Admission: Chest Pain, Copd Exacerbation, Nstemi Discharge Discharge Diagnosis / Problem: NSTEMI S/P Stent to RCA Discharge Goals Goal(s): Decrease discomfort, Improve function Activity Recommendations Activity Limitations: per Instructions/Follow-up section Lifting Limitations: until after follow-up appointment Exercise/Sports Limitations: until after follow-up appointment . Instructions / Follow-Up Instructions / Follow-Up Follow up with your Primary Care Physician in 1 week Follow up with your Middle School Librarian in 2 weeks as advised Follow up with your Apartment Rental Clerk on 10/20/17 at 11:30am Get repeat resting 2-D transthoracic echo in 6-12 weeks. Get blood test (fasting lipid panel and CMP) in 6-12 weeks. Spiculated pulmonary nodule in the right suprahilar region is noted on your CT chest Discuss with your Apartment Rental Clerk regarding need for PET scan and Bronchoscopy Home Care: * Take your medications exactly as directed. Don't skip doses. * Remember that recovery after a heart attack takes time. Plan to rest for at lease 4-8 weeks while you recover. Then return to normal activity when your doctor says it's okay. * Ask your doctor about joining a heart rehabilitation program. * Tell your doctor if you are feeling depressed. Feelings of sadness are common after a heart attack, but it is important that you speak to someone if you are feeling overwhelmed by these feelings. * If you are having chest pain, call 911 for an ambulance. Do NOT drive yourself to the hospital. * Ask your family members to learn CPR. * Learn to take your own blood pressure and pulse. Keep a record of your results. Ask your doctor when you should seek emergency medical attention. He or she will tell you which blood pressure reading is dangerous. Lifestyle Changes: * Maintain a healthy weight. Get help to lose any extra pounds. * Cut back on salt. * Limit canned, dried, packaged, and fast foods. * Don't add salt to your food. * Season foods with herbs instead of salt when you cook. * Break the smoking habit. Enroll in a stop-smoking program to improve your chances of success. * Limit fatty foods. * Ask your doctor about having your lipid levels checked regularly. * Build up your activity according to your doctor's recommendation. * Ask your doctor when it's okay to resume sexual activity. * Try to manage stress. Follow Up: It is important for you to keep your follow up appointments with your medical provider. Current Hospital Diet Patient's current hospital diet: Regular Diet Discharge Diet Recommended Diet: AHA Diet (Heart Healthy) Pending Studies Studies pending at discharge: no Laboratory Results Lipid Panel Test 10/15/17 07:22 Range/Units Triglycerides Level 104 0-150 mg/dl Cholesterol Level 177 0-200 mg/dl HDL Cholesterol 49 mg/dl Cholesterol/HDL Ratio 3.6 LDL Cholesterol, Calculated 107 mg/dl Medical Emergencies . Who to Call and When: Medical Emergencies: If at any time you feel your situation is an emergency, please call 911 immediately. Call 911 immediately or go to your nearest Emergency Room if you experience any of the following: Warning Signs and Symptoms of a Heart Attack * Chest pain that is not relieved by medication * Shortness of breath . Non-Emergent Contact Non-Emergency issues call your: Primary Care Provider, Middle School Librarian Call Non-Emergent contact if: you have a fever, your pain is not controlled, your pain is worsening, your pain is unusual for you, your pain is concerning you, you have any medication questions Seek immediate medical attention if your symptoms reoccur or worsen . . "Provider Documentation" section prepared by Milan Partida. . AMI Core Measures Reason no ASA as I/P: Treatment provided - N/A Reason no ASA at D/C: Treatment provided - N/A Reason no statin as I/P: Treatment provided - N/A Reason no statin at D/C: Treatment provided - N/A VTE Core Measure Inpt VTE Proph given/why not?: Unfractionated heparin SQ <Electronically signed by Milan Partida MD> Signed: 10/16/17 1112 Signed: The status of this report is Signed * If report status is Draft, the document has not been finalized by the responsible provider.
[2017-10-16 11:41] VITALS: BP 90/60; PULSE 66; TEMP 36.8; O2SAT 94
[2017-10-16 12:32] VITALS: BP 102/61; PULSE 59; TEMP 36.9; O2SAT 96
--- NOTE | 2017-10-16 16:04 | Pulmonology Progress Note ---
Pulmonary Progress Note Date of Service Oct 16, 2017. Attending Dr. Nunez Subjective Patient seen and examined prior to discharge. She denied any fevers, chills, chest pain status post catheterization and placement of bare metal stent in right coronary artery. Patient wanted clarification regarding findings on CAT scan yesterday. I explained that there was 1.7 cm nodule on the right side of the lung that was suspicious for malignancy. I explained that due to her previous history of malignancy resection these findings were concerning. She is currently asymptomatic. Objective Vital signs reviewed. Gen.: Awake alert oriented 3, no acute respiratory distress Lungs: Clear to auscultation bilaterally CVS: S1-S2, regular rate and rhythm Abdomen: Mildly obese, nontender, nondistended bowel sounds positive Extremity: No edema, no cyanosis, no clubbing Labs reviewed. Imaging reviewed. Medications reviewed. Assessment & Plan Non-ST elevation myocardial infarction COPD, FEV1 unknown Right lung cancer status post resection Spiculated pulmonary nodule in the right suprahilar region Mediastinal , hilar and precarinal lymphadenopathy Hypertension Diastolic dysfunction Patient is status post stent of the right coronary artery. In terms of pulmonary nodule, patient is unsure where she would like to have follow-up done. 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 I explained that it is pertinent that she is not lost to follow-up especially if this is recurrence of malignancy or new primary lesion. I explained that further workup should be done after 6 weeks post ID. In the meantime she can have a PET scan for further evaluation of the acidity of right perihilar lesion. She expressed full understanding. I also submitted her name to the lung nodule program as well. She should be discharged on current home regimen for COPD. Data Vital Signs: Date Time Temp Pulse Resp B/P (MAP) Pulse Ox O2 Delivery O2 Flow Rate FiO2 10/16/17 12:32 36.9 59 16 102/61 (75) 96 10/16/17 11:41 36.8 66 18 94 Nasal Cannula 10/16/17 08:03 36.8 66 18 90/60 (70) 94 10/16/17 08:00 Nasal Cannula 2.0 10/16/17 04:00 Nasal Cannula 2.0 10/16/17 03:32 36.7 67 18 91/61 (71) 93 2.0 10/15/17 23:59 Nasal Cannula 2.0 10/15/17 23:35 36.7 70 16 164/64 (97) 99 10/15/17 21:15 79 18 162/77 (105) 97 Room Air 10/15/17 20:00 Nasal Cannula 2.0 10/15/17 19:34 61 18 130/78 (95) 98 10/15/17 19:17 36.4 62 18 159/63 (95) 98 Nasal Cannula 2.0 10/15/17 18:34 36.9 61 18 129/66 (87) 91 Nasal Cannula 2.0 10/15/17 18:15 67 129/71 (90) 89 Room Air 10/15/17 17:59 72 133/63 (86) 88 Room Air 10/15/17 17:45 68 143/68 (93) 91 Room Air 10/15/17 17:29 68 153/67 (95) 10/15/17 17:14 78 18 148/73 (98) 87 10/15/17 16:53 71 16 125/67 (86) 98 Room Air 10/15/17 16:43 72 16 132/67 (88) 98 Room Air Laboratory Results: Last 24 Hours Test 10/15/17 16:12 10/16/17 06:50 Kaolin Activated Coagulation Time 191 SECONDS White Blood Count 6.53 K/uL Red Blood Count 4.27 M/uL Hemoglobin 11.9 g/dL Hematocrit 36.8 % Mean Corpuscular Volume 86.2 fL Mean Corpuscular Hemoglobin 27.9 pg Mean Corpuscular Hemoglobin Concent 32.3 g/dl Platelet Count 241 K/uL Mean Platelet Volume 9.4 fL Neutrophils (%) (Auto) 71.1 % Lymphocytes (%) (Auto) 16.1 % Monocytes (%) (Auto) 10.0 % Eosinophils (%) (Auto) 2.3 % Basophils (%) (Auto) 0.3 % Neutrophils # (Auto) 4.65 K/uL Lymphocytes # (Auto) 1.05 K/uL Monocytes # (Auto) 0.65 K/uL Eosinophils # (Auto) 0.15 K/uL Basophils # (Auto) 0.02 K/uL RDW Standard Deviation 41.8 fL RDW Coefficient of Variation 13.3 % Immature Granulocyte % (Auto) 0.2 % Immature Granulocyte # (Auto) 0.01 K/uL Activated Partial Thromboplast Time 26.8 SECONDS Partial Thromboplastin Ratio 1.0 Sodium Level 138 mmol/L Potassium Level 4.2 mmol/L Chloride Level 106 mmol/L Carbon Dioxide Level 24 mmol/L Anion Gap 8.0 mmol/L Blood Urea Nitrogen 15 mg/dl Creatinine 1.12 mg/dl Est Creatinine Clear Calc Drug Dose 41.8 ml/min Estimated GFR () 57.6 Estimated GFR (Non- 49.7 BUN/Creatinine Ratio 13.0 Random Glucose 90 mg/dl Calcium Level 9.0 mg/dl Magnesium Level 2.2 mg/dl
[2017-10-17] MEDS ORDERED: METOPROLOL SUCC 25MG EXT REL TAB PO SCH (09:00)
== END 2017-10-16 12:30 | disposition home or self-care (01) | DRG 249 ==
LOC: C.EDB 23:00 → C.MED 10-15 00:54 → ENRESERV 10-15 01:20 → C.2T 10-15 17:00
PROVIDERS: ADMIT Internal Medicine; ATTEND Internal Medicine
PROC: B2111ZZ Fluoroscopy of Multiple Coronary Arteries using Low Osmolar Contrast (ICD-10-PCS; 2017-10-15)
PROC: 3E033PZ Introduction of Platelet Inhibitor into Peripheral Vein, Percutaneous Approach (ICD-10-PCS; principal; 2017-10-15 14:59)
PROC: 02703DZ Dilation of Coronary Artery, One Artery with Intraluminal Device, Percutaneous Approach (ICD-10-PCS; principal; 2017-10-15 14:59)
DX: I21.4 Non-ST elevation (NSTEMI) myocardial infarction (principal); I16.1 Hypertensive emergency; I25.10 Atherosclerotic heart disease of native coronary artery without angina pectoris; J44.1 Chronic obstructive pulmonary disease with (acute) exacerbation; I10 Essential (primary) hypertension; I25.2 Old myocardial infarction; R09.02 Hypoxemia; E78.5 Hyperlipidemia, unspecified; R91.1 Solitary pulmonary nodule; Z95.5 Presence of coronary angioplasty implant and graft; Z85.118 Personal history of other malignant neoplasm of bronchus and lung; Z90.2 Acquired absence of lung [part of]; Z87.891 Personal history of nicotine dependence; Z82.41 Family history of sudden cardiac death

== ENCOUNTER → 2017-10-17 | Outpatient (CLI) | payer OTHER ==
[~2017-10-17] MED LIST changes: -AMLO-114 PO; -CLOP1TAB15 PO; -CRG25 PO; +IBUP-1050 PO; -LISI-725 PO; +LPT40 PO; -METH10TA6 PO; -METO-157 PO; -OXYC-57 PO; +PLV75 PO; +RANITAB33 PO; -SIMV40TA2 PO; +TPRSR25 PO; +UMEC1INH INH
[2017-10-17 14:48] LABS: BLOOD UREA NITROGEN 15 mg/dl (7-18); CALCIUM 9.5 mg/dl (8.5-10.1); CARBON DIOXIDE 28 mmol/L (21-32); CREATININE 1.25 mg/dl (0.60-1.20); GLUCOSE 107 mg/dl (70-99); POTASSIUM 3.8 mmol/L (3.5-5.1); SODIUM 137 mmol/L (136-145)
== END | disposition home or self-care (01) ==
LOC: C.LAB 13:53
PROVIDERS: ATTEND Internal Medicine Cardiovascular Disease
DX: N18.9 Chronic kidney disease, unspecified (principal)

== ENCOUNTER 2019-01-07 21:28 | Inpatient (IN) ==
[2019-01-07] MEDS ORDERED: ASPIRIN CHEW 324 MG PO STA (21:53)
[2019-01-07 22:04] LABS: Basophils # (auto) 0.02 K/uL (0-0.2); Basophils % (auto) 0.2 %; Eosinophils # (auto) 0.13 K/uL (0-0.5); Eosinophils % (auto) 1.5 %; Hemoglobin 10.9 g/dL (12.0-16.0); Immature Granulocytes # (auto) 0.02 K/uL (0.00-0.02); Immature Granulocytes % (auto) 0.2 %; Lymphocytes # (auto) 2.03 K/uL (1.2-3.4); Mean Corpuscular Hgb Conc 32.1 g/dL (32-36); Mean Corpuscular Volume 85.2 fL (80-100); Mean Platelet Volume 9.8 fL (7.4-10.4); Monocytes # (auto) 0.65 K/uL (0.11-0.59); Monocytes % (auto) 7.4 %; Neutrophils # (auto) 5.96 K/uL (1.4-6.5); Neutrophils % (auto) 67.7 %; Platelet Count 240 K/uL (130-400); RDW Coefficient of Variation 15.2 % (11.5-14.5); RDW Standard Deviation 47.6 fL (36.4-46.3); Red Blood Count 3.99 M/uL (4.2-5.4); White Blood Count 8.81 K/uL (4.8-10.8)
[2019-01-07 22:24] LABS: Albumin Level 4.1 gm/dl (3.4-5.0); BUN Creatinine Ratio 23.4 (10-20); Blood Urea Nitrogen 36 mg/dl (7-18); Calcium 9.5 mg/dl (8.5-10.1); Carbon Dioxide 27 mmol/L (21-32); Chloride 107 mmol/L (98-107); Creatinine Clr Calc Pharmacy 27.5 ml/min; Est GFR (African American) 38.9; Est GFR (Non-African American) 33.6; Glucose 141 mg/dl (70-99); Potassium 4.2 mmol/L (3.5-5.1); Sodium 139 mmol/L (136-145)
[2019-01-07 22:29] LABS: Alanine Aminotransferase 18 U/L (12-78); Alkaline Phosphatase 142 U/L (45-117); Aspartate Aminotransferase 15 U/L (15-37); Bilirubin,Total 0.2 mg/dl (0.2-1); Globulin 4.3 gm/dl (2.5-4.0); Total Protein 8.4 gm/dl (6.4-8.2); Troponin I < 0.015 ng/ml (0-0.045)
--- NOTE | 2019-01-07 22:35 | XRay Report ---
XR chest 1V portable HISTORY: 73 years-old Female chest pain acute atypical chest pain COMPARISON: Chest radiograph 08/27/2018, CT radiation therapy study dated 09/23/2018 TECHNIQUE: Portable AP view of the chest FINDINGS: Cardiomediastinal and hilar silhouettes are unchanged. Redemonstration of a 2.1 cm right hilar nodule . Chronic right hemidiaphragmatic elevation with postoperative changes of the right lung. Ill-defined bibasilar opacities are noted. Emphysema with chronic interstitial coarsening. No pneumothorax or la rge pleural effusion or overt pulmonary edema. Degenerative changes of the shoulders and spine. Uncha nged chondroid lesion of the proximal left humerus, 2.3 cm. Surgical clips project over the left neck . IMPRESSION: 1. Chronic postoperative changes of the right lung. 2. Emphysema with chronic interstitial coarsening. 3. Bibasilar opacities suggest atelectasis, pneumonitis considered less likely. 4. 2.0 cm right hilar nodule redemonstrated. The above report was generated using voice recognition software. It may contain grammatical, syntax o r spelling errors. Electronically signed by: Jerad Falk M.D. 01/07/2019 10:33 PM
[2019-01-07 23:14] LABS: Partial Thromboplastin Ratio 0.9; Partial Thromboplastin Time 24.5 Seconds (21.0-31.0); Prothrombin Time 9.9 Seconds (9.0-12.0)
[2019-01-07] MEDS ORDERED: NITROGLYCERIN SL 0.4 MG/TAB TAB SL STA (23:38)
--- NOTE | 2019-01-08 01:00 | History & Physical Report ---
Date of Service January 08, 2019 Assessment & Plan (1) Chest pain: (2) Carotid artery disease: (3) Non-small cell cancer of right lung: (4) COPD (chronic obstructive pulmonary disease): (5) HTN (hypertension): (6) HLD (hyperlipidemia): (7) CKD (chronic kidney disease) stage 3, GFR 30-59 ml/min: History of Present Illness Chief Complaint: Severe substernal chest pain Primary Care Provider: Marie Yuen MD 73-year-old female with a past medical history of non-small cell lung cancer, coronary disease with stent to the RCA, COPD, hyperlipidemia, chronic kidney disease stage III, who presents to our emergency room with severe substernal chest pain radiating into her shoulders 10 out of 10 in nature. 2 EKGs were done in the emergency room which showed lateral ST depressions, her troponin so far is negative. She is on oxygen periodically as needed at home. She also has a history of right middle lobe and right lower lobe lobectomy secondary to non- small cell lung cancer. She has had radiation in the past. Assessment and Plan Severe substernal chest pain COPD CAD Chronic kidney disease stage III Hypertension Hyperlipidemia Cardiac evaluation, serial troponins, continue outpatient medications where appropriate, likely to be here less than 2 midnights will be under observation, oxygen, nebulizers. Gentle IV fluids ROS-No Headache, No Visual Changes, No Fever, No Chills, No Neck Pain or Stiffness, positive severe substernal chest Pain 10 out of 10 radiating into the back between the shoulder blades, No Palpitations, positive SOB, positive KING, positive cough, No Sputum, No Wheezing, No Abdominal Pain, No Diarrhea, No Hematemesis, No Hemoptysis, No Unexpected Weight Loss, No Flank pain, No Melena, No Hematochezia, No Frequency, No Urgency, No Burning, No Hematuria, No Rashes, No Diaphoresis. Appetite is Normal Physical Exam Gen-AAO x 3, NAD, Afebrile Head-NCAT, EOMI, PERRLA, Anicteric Sclera, No Posterior Pharyngeal Erythema Neck-Supple, No JVD, No Thyromegaly, No Masses, No LAD, No Bruits Lungs-Clear to Auscultation Bilaterally, No Rales, No Rhonchi, No Wheezing, No Crepitus Chest-No S4, +S1, +S2, No S3, No Murmurs, No Rubs, No Gallops, No Ectopy Abdomen-Soft, Bowel Sounds Present, Non Tender, Non Distended, No Hepatomegaly, No Splenomegaly, No Palpable Masses, No Rebound, No Rigidity, No Guarding Musculoskeletal-Full Range of Motion Bilaterally, No CVAT Extremities-No Cyanosis, No Clubbing, No Edema Nuero-Cranial Nerves II-XII grossly intact, Motor WNL, DTRs WNL, Strength WNL, No Focal Psych-Normal Mood [id number] cell lung cancer, coronary artery disease with a history of stent to the RCA, hyperlipidemia, hypertension, COPD, CKD 3 PSH-right middle lobe and right lower lobe lobectomy, cardiac cath to the RCA, endarterectomy, cholecystectomy FH-CVA, acute AR, Hodgkin's lymphoma x2, brain neoplasm, hypertension SH-, former smoker pack a day for 55 years, denies alcohol Meds reviewed and Reconciled Labs Reviewed Allergies Allergy/AdvReac Type Severity Reaction Status Date / Time No Known Allergies Allergy Verified 01/07/19 22:39 Home Medications Home Medications Medication Instructions Recorded Confirmed Type Incruse Ellipta 1 inh INHALATION QAM 06/28/18 01/07/19 History aspirin [Ecotrin Low Strength] 81 mg PO QPM 07/21/18 01/07/19 History atorvastatin 80 mg PO QPM 07/21/18 01/07/19 History metoprolol succinate 25 mg PO QAM 07/21/18 01/07/19 History clopidogrel 75 mg PO QAM 08/26/18 01/07/19 History isosorbide mononitrate 60 mg PO QAM 01/07/19 01/07/19 History lisinopril-hydrochlorothiazide 1 tab PO QAM 01/07/19 01/07/19 History Past Med/Surg History Medical History Anxiety (Chronic) CKD (chronic kidney disease), stage III (Chronic) COPD (chronic obstructive pulmonary disease) (Chronic) Carotid artery disease (Chronic) Coronary artery disease (Chronic) Dyslipidemia (Chronic) HTN (hypertension) (Chronic) Hypoxemia (Chronic) Wears oxygen at home Lung cancer (Chronic) dx'd 2009 and surgically removed;Right middle and lower lobes; Mediastinal lymphadenopathy (Resolved) Mediastinoscopy and biopsy done - negative for malignancy - 08/27/18 NSTEMI (non-ST elevated myocardial infarction) (Resolved) 10/15/17 and again on 06/29/18 PATIENT HAD CATH ON 06/29/18 SHOWING RE-STENOSIS OF PROXIMAL RCA. BARE METAL STENT WAS PLACED INSTEAD OF CHARLES IN ANTICIPATION OF KNOWN UPCOMING PULMONARY SURGICAL PROCEDURE (EBUS/[facility]MU[facility] BRONCH 07/23/18). Pulmonary nodule Surgical History History of cholecystectomy (Chronic) lap History of cardiac cath (Resolved) 10/2010 - Stent to RCA 10/2017 - bare metal stent to mid RCA at [facility] 06/2018 - BMS to RCA at [facility] History of left-sided carotid endarterectomy (Resolved) History of lobectomy of lung (Resolved) R middle and lower lobectomy - 2009 or 2010 History of bilateral tubal ligation History of bronchoscopy History of section x4 History of colonoscopy History of dilatation and curettage History of discectomy ~2002 Lumbar spine History of esophagogastroduodenoscopy (EGD) History of lung biopsy Family History Mother , in her 80s;Natural causes No problems noted. Father , in his 70s Stroke Heart disease Brother No problems noted. Brother No problems noted. Sister Hodgkins lymphoma Sister Lung cancer, primary, with metastasis from lung to other site Sister No problems noted. Son No problems noted. Son No problems noted. Daughter No problems noted. Daughter No problems noted. 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 Other Information That Helps Us Care for You: No Feels Safe at Home: Yes Safety Concerns: Feels Safe At This Time Smoking Status: Former smoker Hx Alcohol Use: No Hx Substance Use: No caffeine: Yes (2-3 glasses/day) during the past year weight has: decreased > 10 lbs Physical Exam Vital Signs (Past 24 Hours): Last Vital Signs Temp 36.8 C 01/07/19 22:02 Pulse 85 01/07/19 23:52 Resp 24 01/07/19 23:52 BP 210/59 H 01/07/19 23:52 Pulse Ox 99 01/07/19 23:52 Results & Data Laboratory Results Allergies No Known Allergies Allergy (Verified 01/07/19 22:39) Height/Weight/Isolation Height 5 ft 1 in Weight 58.4 kg CBC 01/07/19 01/07/19 01/07/19 21:45 21:45 21:45 WBC 8.81 RBC 3.99 L Hgb 10.9 L Hct 34.0 L MCV 85.2 MCH 27.3 MCHC 32.1 RDW Std Deviation 47.6 H RDW Coeff of Ariane 15.2 H Plt Count 240 MPV 9.8 Immature Gran % (Auto) 0.2 Neut % (Auto) 67.7 Lymph % (Auto) 23.0 Heard % (Auto) 7.4 Eos % (Auto) 1.5 Baso % (Auto) 0.2 Immature Gran # (Auto) 0.02 Neut # (Auto) 5.96 Lymph # (Auto) 2.03 Heard # (Auto) 0.65 H Eos # (Auto) 0.13 Baso # (Auto) 0.02 PT Cancelled INR Cancelled APTT Cancelled PTT Ratio Cancelled Sodium 139 Potassium 4.2 Chloride 107 Carbon Dioxide 27 Anion Gap 4.0 BUN 36 H Creatinine 1.54 H Est Cr Clr Drug Dosing 27.5 Est GFR ( Amer) 38.9 Est GFR (Non-Af Amer) 33.6 BUN/Creatinine Ratio 23.4 H Glucose 141 H Calcium 9.5 Total Bilirubin 0.2 AST 15 ALT 18 Alkaline Phosphatase 142 H Troponin I < 0.015 Total Protein 8.4 H Albumin 4.1 Globulin 4.3 H Albumin/Globulin Ratio 1.0 01/07/19 22:50 WBC RBC Hgb Hct MCV MCH MCHC RDW Std Deviation RDW Coeff of Ariane Plt Count MPV Immature Gran % (Auto) Neut % (Auto) Lymph % (Auto) Heard % (Auto) Eos % (Auto) Baso % (Auto) Immature Gran # (Auto) Neut # (Auto) Lymph # (Auto) Heard # (Auto) Eos # (Auto) Baso # (Auto) PT 9.9 INR 1.0 APTT 24.5 PTT Ratio 0.9 Sodium Potassium Chloride Carbon Dioxide Anion Gap BUN Creatinine Est Cr Clr Drug Dosing Est GFR ( Amer) Est GFR (Non-Af Amer) BUN/Creatinine Ratio Glucose Calcium Total Bilirubin AST ALT Alkaline Phosphatase Troponin I Total Protein Albumin Globulin Albumin/Globulin Ratio Chemistry 01/07/19 21:45 Sodium 139 Potassium 4.2 Chloride 107 Carbon Dioxide 27 Anion Gap 4.0 BUN 36 H Creatinine 1.54 H Glucose 141 H (1) Chest pain Chest pain type: unspecified Qualified Code(s): R07.9 - Chest pain, unspecified
[2019-01-08] MEDS ORDERED: ONDANSETRON INJ 2 MG/ML 2 ML VIAL IV PRN (02:11)
[2019-01-08] MEDS ORDERED: NITROGLYCERIN SL 0.4 MG/TAB TAB SL PRN (02:11)
[2019-01-08] MEDS ORDERED: MoRPHine SULFATE 4 MG/ML 1 ML CARP\\VIAL IV PRN (02:11)
[2019-01-08] MEDS ORDERED: POLYETHYLENE (MIRALAX) 17 GM PACK PO PRN (02:11)
[2019-01-08] MEDS ORDERED: ACETAMINOPHEN 325 MG TAB PO PRN (02:11)
[2019-01-08] MEDS ORDERED: SODIUM CHLORIDE 0.9% 500 ML IV SCH (05:15)
[2019-01-08] MEDS: SODIUM CHLORIDE 0.9% 1000ML 1,000 ML IV SCH ×2 (05:35→15:19)
[2019-01-08 05:50] LABS: Basophils # (auto) 0.02 K/uL (0-0.2); Basophils % (auto) 0.2 %; Eosinophils # (auto) 0.12 K/uL (0-0.5); Eosinophils % (auto) 1.5 %; Hematocrit (blood only) 29.6 % (37-47); Hemoglobin 9.5 g/dL (12.0-16.0); Immature Granulocytes # (auto) 0.01 K/uL (0.00-0.02); Immature Granulocytes % (auto) 0.1 %; Lymphocytes # (auto) 1.69 K/uL (1.2-3.4); Lymphocytes % (auto) 20.8 %; Mean Corpuscular Volume 84.1 fL (80-100); Mean Platelet Volume 9.6 fL (7.4-10.4); Monocytes # (auto) 0.77 K/uL (0.11-0.59); Monocytes % (auto) 9.5 %; Neutrophils % (auto) 67.9 %; Platelet Count 209 K/uL (130-400); RDW Coefficient of Variation 15.3 % (11.5-14.5); Red Blood Count 3.52 M/uL (4.2-5.4); White Blood Count 8.11 K/uL (4.8-10.8)
[2019-01-08 05:57] LABS: Mean Corpuscular Hgb Conc 32.1 g/dL (32-36)
[2019-01-08] MEDS ORDERED: HEPARIN SOD 5,000 UNIT/0.5 ML VIAL SQ SCH (06:00)
[2019-01-08 06:10] LABS: Albumin Level 3.3 gm/dl (3.4-5.0); BUN Creatinine Ratio 24.4 (10-20); Calcium 8.7 mg/dl (8.5-10.1); Creatinine Clr Calc Pharmacy 32.3 ml/min; Est GFR (African American) 44.9; Est GFR (Non-African American) 38.7; Potassium 4.2 mmol/L (3.5-5.1)
[2019-01-08 06:23] LABS: Albumin Globulin Ratio 0.9 (0.9-2); Bilirubin,Total 0.2 mg/dl (0.2-1); Globulin 3.5 gm/dl (2.5-4.0); Total Protein 6.8 gm/dl (6.4-8.2); Troponin I 0.341 ng/ml (0-0.045)
--- NOTE | 2019-01-08 06:52 | Emergency Department Note ---
Entered by Diya Amaral acting as a scribe for Brennon Ruvalcaba MD ED Provider Note Name: Melisa Hernadez Age: 73 F Arrives Via: Private vehicle Informant: The patient CC: Chest pain HPI: A 73 year old female arrives for evaluation of an episode of chest pain starting 1 hour ago. The patient reports that she experienced chest pain that radiated under her arms and to her back. She states that these symptoms started after she ate dinner and described them as indigestion. She notes that she has experienced these symptoms before as she has had a heart attack before. She adds that she was short of breath while experiencing this chest pain. The patient reports that she did not take any other medications [employer] for these symptoms. She adds that she takes Plavix and Baby Aspirin. She denies lower extremity swelling, cough and fever. ROS: See above HPI for pertinent positives & negatives. A total of 10 systems reviewed and were otherwise negative. Past Medical History: Anxiety, CAD, COPD, HTN, NSTEMI, Lung cancer, CKD Past Surgical History: Lobectomy of lung, Cholecystectomy, Cardiac catheter, EGD, Colonoscopy, Discectomy, Bilateral tubal ligation, Bronchoscopy, Lung biopsy. Family History: Stroke, heart disease, lung cancer. Social History: Lives alone. Feels safe at home. Former smoker. Home Medications: Aspirin Ecotrin Low Strength 81 mg PO, Atorvastatin 80 mg PO, Clopidogrel 75 mg PO, Incruse Ellipta 1 INH, Isosorbide mononitrate 60 mg PO, Lisinopril-Hydrochlorothiazide 1 tab PO, Metoprolol succinate 25 mg PO. Allergies No known allergies. Physical: Vitals: BP: 210/59, Pulse: 85, Resp: 24, Temp: 98.2F, O2 Sat: 99, Delivery: Nasal Cannula Exam: GENERAL: Patient is anxious appearing and in mild distress. EYES: No scleral icterus, unremarkable pupils. ENT: Mucous membranes moist, no nasal congestion. NECK: No masses appreciated, no meningismus, trachea is midline. RESPIRATORY: Mild dyspnea (patient and family state this tis chronic). Clear to auscultation and equal bilaterally. No wheeze, no rhonchi. Decreased breath sounds in right lower lobe. CARDIOVASCULAR: Regular rate and rhythm. No murmurs, rubs, gallops appreciated. GASTROINTESTINAL: Abdomen soft, non-tender, no peritonitis. Bowel sounds positive. No masses appreciated. BACK: No midline tenderness, no CVA tenderness EXTREMITIES: Normal motion all extremities, no cyanosis, no edema. NEUROLOGIC: Alert and oriented, no acute motor or sensory deficits, no focal weakness, cranial nerves grossly intact. SKIN: No rash, no jaundice, no diaphoresis. ED Course: 2330: Prior Medical Record, Triage/Nursing Notes, Medications, Allergies reviewed by Me. Past medical records reviewed. The patient was evaluated in room C6, and a complete history and physical examination were performed. 2340: I reviewed the patient's case with Ever Morales - [facility] hospitalist. He will evaluate the patient for further management. 0020: I reevaluated the patient at this time who was chest pain free after receiving Nitroglycerin. Vital Signs: reviewed and remarkable for HTN Labs: Reviewed and remarkable for wnl Interventions: ASA 324mg PO, SLNTG Imaging: X ray results are stated below per my interpretation: Chest: 1 view: No infiltrate, no effusion, normal cardiac border. EKG: Per My Interpretation: #1: NSR with lateral ST depressions without stemi nor ectopy. 68 bpm. qtc 410. Similar to previous. #2: NSR with lateral ST depressions mildly deeper than previous. 79 BPM. qtc 426. no ectopy. No Stemi. Consults: Dr Curtis - Hospitalist Blood pressure: Elevated - Referred to Hospitalist Disposition: Hospitalization Differentials: Includes acute myocardial infarction, acute coronary syndrome, m yocarditis, pericarditis, pericardial effusions /tamponad, esophageal perforation, thoracic aortic dissection, pulmonary embolism, pneumonia, pneumothorax, pancreatitis, shingles, acute cholecystitis and perforated abdominal viscus amongst other pathologies. Medical Decision Making: Pleasant 73 yr old female who arrives after episodes substernal cp radiating to shoulder. History of CAD with NSTEMI and stending 06/2018. She has lateral ST depressions on 2 EKGS though pain resolved with single nitro here. She does not have continued pain and does not have stemi on EKG. Initial trop wnl. She does have some chronic shortness of breath which was worse while she was having pain. She is on O2 a home, is sating well, is not tachy. This does not seem cons istent with PE thus will hold on CT imaging at this time. She is stable, breathing comfortably and agreeable to hospitalization. Impression: Substernal Chest Pain Brennon Ruvalcaba MD The scribe's documentation has been prepared under my direction and personally reviewed by me in its entirety. I confirm that the note above accurately reflects all work, treatment, procedures, and medical decision making performed by me. Impression & Plan Substernal chest pain, Hypertension Past Med/Surg History Medical History Anxiety (Chronic) CKD (chronic kidney disease), stage III (Chronic) COPD (chronic obstructive pulmonary disease) (Chronic) Carotid artery disease (Chronic) Coronary artery disease (Chronic) Dyslipidemia (Chronic) HTN (hypertension) (Chronic) Hypoxemia (Chronic) Wears oxygen at home Lung cancer (Chronic) dx'd 2009 and surgically removed;Right middle and lower lobes; Mediastinal lymphadenopathy (Resolved) Mediastinoscopy and biopsy done - negative for malignancy - 08/27/18 NSTEMI (non-ST elevated myocardial infarction) (Resolved) 10/15/17 and again on 06/29/18 PATIENT HAD CATH ON 06/29/18 SHOWING RE-STENOSIS OF PROXIMAL RCA. BARE METAL STENT WAS PLACED INSTEAD OF CHARLES IN ANTICIPATION OF KNOWN UPCOMING PULMONARY SURGICAL PROCEDURE (EBUS/HASMUKH BRONCH 07/23/18). Pulmonary nodule Surgical History History of cholecystectomy (Chronic) lap History of cardiac cath (Resolved) 10/2010 - Stent to RCA 10/2017 - bare metal stent to mid RCA at [facility] 06/2018 - BMS to RCA at [facility] History of left-sided carotid endarterectomy (Resolved) History of lobectomy of lung (Resolved) R middle and lower lobectomy - 2009 or 2010 History of bilateral tubal ligation History of bronchoscopy History of section x4 History of colonoscopy History of dilatation and curettage History of discectomy ~2002 Lumbar spine History of esophagogastroduodenoscopy (EGD) History of lung biopsy Family History Mother , in her 80s;Natural causes No problems noted. Father , in his 70s Stroke Heart disease Brother No problems noted. Brother No problems noted. Sister Hodgkins lymphoma Sister Lung cancer, primary, with metastasis from lung to other site Sister No problems noted. Son No problems noted. Son No problems noted. Daughter No problems noted. Daughter No problems noted. 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 Other Information That Helps Us Care for You: No Feels Safe at Home: Yes Safety Concerns: Feels Safe At This Time Smoking Status: Former smoker Hx Alcohol Use: No Hx Substance Use: No caffeine: Yes (2-3 glasses/day) during the past year weight has: decreased > 10 lbs Results & Data Vital Signs Vital Signs - 24 hr 01/07/19 22:02 01/07/19 23:09 01/07/19 23:52 Temperature 36.8 C Temperature Source Oral Sepsis Recent Fever Within 48 Hours No Sepsis Action Taken by Nursing No Action Required Pulse Rate 70 Pulse Rate [Bilateral] 71 85 Pulse Rhythm Regular Pulse Rhythm [Bilateral] Regular Pulse Strength Normal Pulse Strength [Bilateral] Normal Respiratory Rate 18 18 24 Respiratory Effort / Characteristics Non-Labored Spontaneous Non-Labored Spontaneous Labored Short of Breath Respiratory Depth Normal Normal Respiratory Pattern Regular Regular Regular Blood Pressure 190/67 H Blood Pressure [Left Arm] Blood Pressure [Right Arm] 210/59 H Blood Pressure Mean 108 Blood Pressure Mean [Left Arm] Blood Pressure Mean [Right Arm] 109 Blood Pressure Position Sitting Blood Pressure Position [Left Arm] Blood Pressure Position [Right Arm] Sitting Sitting Pulse Oximetry 100 96 99 Pulse Oximetry [Left Index Finger] Oxygen Delivery Method Room Air Nasal Cannula Room Air Oxygen Delivery Method [Left Index Finger] Oxygen Flow Rate 3 3 3 Oxygen Flow Rate [Left Index Finger] 01/08/19 00:11 01/08/19 01:20 01/08/19 01:42 Temperature 36.5 C Temperature Source Oral Sepsis Recent Fever Within 48 Hours Sepsis Action Taken by Nursing Pulse Rate 68 Pulse Rate [Bilateral] 70 87 Pulse Rhythm Pulse Rhythm [Bilateral] Regular Regular Pulse Strength Pulse Strength [Bilateral] Normal Normal Respiratory Rate 24 18 26 H Respiratory Effort / Characteristics Labored Short of Breath Spontaneous Labored SOB on Exertion Respiratory Depth Normal Shallow Respiratory Pattern Regular Tachypnea Blood Pressure 145/63 H Blood Pressure [Left Arm] Blood Pressure [Right Arm] 165/59 H 191/78 H Blood Pressure Mean Blood Pressure Mean [Left Arm] Blood Pressure Mean [Right Arm] 94 115 Blood Pressure Position Blood Pressure Position [Left Arm] Blood Pressure Position [Right Arm] Sitting Sitting Pulse Oximetry 96 98 95 Pulse Oximetry [Left Index Finger] Oxygen Delivery Method Nasal Cannula Room Air Nasal Cannula Oxygen Delivery Method [Left Index Finger] Oxygen Flow Rate 3 2 Oxygen Flow Rate [Left Index Finger] 01/08/19 02:05 01/08/19 02:11 01/08/19 02:59 Temperature Temperature Source Sepsis Recent Fever Within 48 Hours Sepsis Action Taken by Nursing Pulse Rate 78 Pulse Rate [Bilateral] Pulse Rhythm Pulse Rhythm [Bilateral] Pulse Strength Pulse Strength [Bilateral] Respiratory Rate Respiratory Effort / Characteristics Spontaneous SOB on Exertion Respiratory Depth Respiratory Pattern Regular Blood Pressure Blood Pressure [Left Arm] Blood Pressure [Right Arm] Blood Pressure Mean Blood Pressure Mean [Left Arm] Blood Pressure Mean [Right Arm] Blood Pressure Position Blood Pressure Position [Left Arm] Blood Pressure Position [Right Arm] Pulse Oximetry Pulse Oximetry [Left Index Finger] 99 Oxygen Delivery Method Nasal Cannula Oxygen Delivery Method [Left Index Finger] Nasal Cannula Oxygen Flow Rate 3 Oxygen Flow Rate [Left Index Finger] 3 01/08/19 03:30 Temperature 36.6 C Temperature Source Oral Sepsis Recent Fever Within 48 Hours Sepsis Action Taken by Nursing Pulse Rate Pulse Rate [Bilateral] 76 Pulse Rhythm Pulse Rhythm [Bilateral] Pulse Strength Pulse Strength [Bilateral] Respiratory Rate 17 Respiratory Effort / Characteristics Respiratory Depth Respiratory Pattern Blood Pressure Blood Pressure [Left Arm] 142/62 H Blood Pressure [Right Arm] Blood Pressure Mean Blood Pressure Mean [Left Arm] 88 Blood Pressure Mean [Right Arm] Blood Pressure Position Blood Pressure Position [Left Arm] Lying Blood Pressure Position [Right Arm] Pulse Oximetry 100 Pulse Oximetry [Left Index Finger] Oxygen Delivery Method Nasal Cannula Oxygen Delivery Method [Left Index Finger] Oxygen Flow Rate 2 Oxygen Flow Rate [Left Index Finger] Home Medications Current Medication List: was personally reviewed by me Laboratory Data Attestation: I reviewed the patient's lab results. Result diagrams: 01/08/19 05:31 01/08/19 05:31 Lab Results 01/07/19 01/07/19 01/07/19 Range/Units 21:45 21:45 21:45 WBC 8.81 (4.8-10.8) K/uL RBC 3.99 L (4.2-5.4) M/uL Hgb 10.9 L (12.0-16.0) g/dL Hct 34.0 L (37-47) % MCV 85.2 (80-100) fL MCH 27.3 (25-34) pg MCHC 32.1 (32-36) g/dL RDW Std Deviation 47.6 H (36.4-46.3) fL RDW Coeff of Ariane 15.2 H (11.5-14.5) % Plt Count 240 (130-400) K/uL MPV 9.8 (7.4-10.4) fL Immature Gran % (Auto) 0.2 % Neut % (Auto) 67.7 % Lymph % (Auto) 23.0 % [place] % (Auto) 7.4 % Eos % (Auto) 1.5 % Baso % (Auto) 0.2 % Immature Gran # (Auto) 0.02 (0.00-0.02) K/uL Neut # (Auto) 5.96 (1.4-6.5) K/uL Lymph # (Auto) 2.03 (1.2-3.4) K/uL [place] # (Auto) 0.65 H (0.11-0.59) K/uL Eos # (Auto) 0.13 (0-0.5) K/uL Baso # (Auto) 0.02 (0-0.2) K/uL PT Cancelled INR Cancelled APTT Cancelled PTT Ratio Cancelled Sodium 139 (136-145) mmol/L Potassium 4.2 (3.5-5.1) mmol/L Chloride 107 (98-107) mmol/L Carbon Dioxide 27 (21-32) mmol/L Anion Gap 4.0 (3-11) BUN 36 H (7-18) mg/dl Creatinine 1.54 H (0.6-1.2) mg/dl Est Cr Clr Drug Dosing 27.5 ml/min Est GFR ( Amer) 38.9 Est GFR (Non-Af Amer) 33.6 BUN/Creatinine Ratio 23.4 H (10-20) Glucose 141 H (70-99) mg/dl Calcium 9.5 (8.5-10.1) mg/dl Total Bilirubin 0.2 (0.2-1) mg/dl AST 15 (15-37) U/L ALT 18 (12-78) U/L Alkaline Phosphatase 142 H (45-117) U/L Troponin I < 0.015 (0-0.045) ng/ml Total Protein 8.4 H (6.4-8.2) gm/dl Albumin 4.1 (3.4-5.0) gm/dl Globulin 4.3 H (2.5-4.0) gm/dl Albumin/Globulin Ratio 1.0 (0.9-2) 01/07/19 01/08/19 01/08/19 Range/Units 22:50 05:31 05:31 WBC (4.8-10.8) K/uL RBC (4.2-5.4) M/uL Hgb (12.0-16.0) g/dL Hct (37-47) % MCV (80-100) fL MCH (25-34) pg MCHC (32-36) g/dL RDW Std Deviation (36.4-46.3) fL RDW Coeff of Ariane (11.5-14.5) % Plt Count (130-400) K/uL MPV (7.4-10.4) fL Immature Gran % (Auto) % Neut % (Auto) % Lymph % (Auto) % [place] % (Auto) % Eos % (Auto) % Baso % (Auto) % Immature Gran # (Auto) (0.00-0.02) K/uL Neut # (Auto) (1.4-6.5) K/uL Lymph # (Auto) (1.2-3.4) K/uL [place] # (Auto) (0.11-0.59) K/uL Eos # (Auto) (0-0.5) K/uL Baso # (Auto) (0-0.2) K/uL PT 9.9 INR 1.0 APTT 24.5 PTT Ratio 0.9 Sodium 141 Cancelled (136-145) mmol/L Potassium 4.2 Cancelled (3.5-5.1) mmol/L Chloride 111 H Cancelled (98-107) mmol/L Carbon Dioxide 26 Cancelled (21-32) mmol/L Anion Gap 4.0 Cancelled (3-11) BUN 33 H Cancelled (7-18) mg/dl Creatinine 1.37 H Cancelled (0.6-1.2) mg/dl Est Cr Clr Drug Dosing 32.3 Cancelled ml/min Est GFR ( Amer) 44.9 Cancelled Est GFR (Non-Af Amer) 38.7 Cancelled BUN/Creatinine Ratio 24.4 H Cancelled (10-20) Glucose 102 H Cancelled (70-99) mg/dl Calcium 8.7 Cancelled (8.5-10.1) mg/dl Total Bilirubin 0.2 Cancelled (0.2-1) mg/dl AST 10 L Cancelled (15-37) U/L ALT 14 Cancelled (12-78) U/L Alkaline Phosphatase 113 Cancelled (45-117) U/L Troponin I 0.341 H* (0-0.045) ng/ml Total Protein 6.8 Cancelled (6.4-8.2) gm/dl Albumin 3.3 L Cancelled (3.4-5.0) gm/dl Globulin 3.5 Cancelled (2.5-4.0) gm/dl Albumin/Globulin Ratio 0.9 Cancelled (0.9-2) 01/08/19 Range/Units 05:31 WBC 8.11 (4.8-10.8) K/uL RBC 3.52 L (4.2-5.4) M/uL Hgb 9.5 L (12.0-16.0) g/dL Hct 29.6 L (37-47) % MCV 84.1 (80-100) fL MCH 27.0 (25-34) pg MCHC 32.1 (32-36) g/dL RDW Std Deviation 47.0 H (36.4-46.3) fL RDW Coeff of Ariane 15.3 H (11.5-14.5) % Plt Count 209 (130-400) K/uL MPV 9.6 (7.4-10.4) fL Immature Gran % (Auto) 0.1 % Neut % (Auto) 67.9 % Lymph % (Auto) 20.8 % [place] % (Auto) 9.5 % Eos % (Auto) 1.5 % Baso % (Auto) 0.2 % Immature Gran # (Auto) 0.01 (0.00-0.02) K/uL Neut # (Auto) 5.50 (1.4-6.5) K/uL Lymph # (Auto) 1.69 (1.2-3.4) K/uL [place] # (Auto) 0.77 H (0.11-0.59) K/uL Eos # (Auto) 0.12 (0-0.5) K/uL Baso # (Auto) 0.02 (0-0.2) K/uL PT INR APTT PTT Ratio Sodium (136-145) mmol/L Potassium (3.5-5.1) mmol/L Chloride (98-107) mmol/L Carbon Dioxide (21-32) mmol/L Anion Gap (3-11) BUN (7-18) mg/dl Creatinine (0.6-1.2) mg/dl Est Cr Clr Drug Dosing ml/min Est GFR ( Amer) Est GFR (Non-Af Amer) BUN/Creatinine Ratio (10-20) Glucose (70-99) mg/dl Calcium (8.5-10.1) mg/dl Total Bilirubin (0.2-1) mg/dl AST (15-37) U/L ALT (12-78) U/L Alkaline Phosphatase (45-117) U/L Troponin I (0-0.045) ng/ml Total Protein (6.4-8.2) gm/dl Albumin (3.4-5.0) gm/dl Globulin (2.5-4.0) gm/dl Albumin/Globulin Ratio (0.9-2) Administered Medications Heparin Sodium (Porcine) (Heparin Sodium (Porcine)) 5,000 units SQ Q8 [facility] Stop: 02/07/19 05:59 Last Admin: 01/08/19 06:00 Dose: 5,000 units Documented by: [id number] Cosigned by: [id number] Sodium Chloride (Nss 1000ml) 1,000 mls @ 80 mls/hr IV .[id number] [facility] Stop: 01/08/19 21:14 Last Admin: 01/08/19 05:35 Dose: 80 mls/hr Documented by: [id number] Discontinued Medications Aspirin (Aspirin) 324 mg PO ONE STA Stop: 01/07/19 21:54 Last Admin: 01/07/19 22:00 Dose: 324 mg Documented by: [id number] Nitroglycerin (Nitrostat) 0.4 mg SL NOW STA Stop: 01/07/19 23:39 Last Admin: 01/07/19 23:52 Dose: 0.4 mg Documented by: [id number] Imaging Data Radiologist's Impression: Radiology results as stated below per my review and the radiologist's interpretation: XR chest 1V portable HISTORY: 73 years-old Female chest pain acute atypical chest pain COMPARISON: Chest radiograph 08/27/2018, CT radiation therapy study dated 09/23/2018 TECHNIQUE: Portable AP view of the chest FINDINGS: Cardiomediastinal and hilar silhouettes are unchanged. Redemonstration of a 2.1 cm right hilar nodule. Chronic right hemidiaphragmatic elevation with postoperative changes of the right lung. Ill-defined bibasilar opacities are noted. Emphysema with chronic interstitial coarsening. No pneumothorax or large pleural effusion or overt pulmonary edema. Degenerative changes of the shoulders and spine. Unchanged chondroid lesion of the proximal left humerus, 2.3 cm. Surgical clips project over the left neck. IMPRESSION: 1. Chronic postoperative changes of the right lung. 2. Emphysema with chronic interstitial coarsening. 3. Bibasilar opacities suggest atelectasis, pneumonitis considered less likely. 4. 2.0 cm right hilar nodule redemonstrated. The above report was generated using voice recognition software. It may contain grammatical, syntax or spelling errors. Electronically signed by: Jerad Falk M.D. 01/07/2019 10:33 PM ECG Data Attestation: I personally reviewed and interpreted this ECG as follows: Blood Pressure Blood Pressure Findings: Elevated blood pressure Blood Pressure Disposition: further management by hospitalist Discharge Plan Visit Data *Final* Discharge Date/Time: 01/08/19 01:20 Chief Complaint: Chest Pain Stated Complaint: CHEST PAIN ED Provider: Brennon Ruvalcaba Discharge Problem: Substernal chest pain, Hypertension Patient Disposition: Admitted As Inpatient Discharge Instructions Interventions: ED Discharge Assessment Last Done: 01/08/19 01:20 Discharge Problem: Hypertension Qualifiers: Hypertension type: unspecified Qualified Code(s): I10 - Essential (primary) hypertension The scribe's documentation has been prepared under my direction and personally reviewed by me in its entirety. I confirm that the note above accurately reflects all work, treatment, procedures, and medical decision making performed by me.
[2019-01-08] MEDS: ISOSORBIDE MONO EXTENDED REL 60 MG TABCR PO SCH (08:54)
[2019-01-08] MEDS: CLOPIDOGREL BISULFATE 75 MG TAB PO SCH (08:55)
[2019-01-08] MEDS: METOPROLOL SUCC 25MG EXT REL TAB PO SCH (08:55)
[2019-01-08] MEDS ORDERED: LISINOPRIL/HCTZ 10/12.5MG TAB PO SCH (09:00)
--- NOTE | 2019-01-08 09:05 | Cardiology Consultation ---
Date of Consultation January 08, 2019 Assessment & Plan (1) NSTEMI (non-ST elevated myocardial infarction): Patient has had waxing and waning anginal symptoms overnight last night. She is currently in no acute distress, but does not feel that she is at her baseline. She is sitting upright in bed, and is very anxious about the possibility of recurrent symptoms. Blood pressures been elevated on presentation but has improved. Patient is to be kept n.p.o. with the exception of medications. In addition to her outpatient medications of aspirin, Plavix, atorvastatin metoprolol, and isosorbide mononitrate, unfractionated heparin will be added. A stat echocardiogram at the bedside is to be performed which I will review. Based on the patient's progress this morning, will determine timing of cardiac catheterization. (2) HTN (hypertension): We will hold her lisinopril HCTZ since her creatinine is a little bit above goal. I believe however she is already received this morning's dose. (3) HLD (hyperlipidemia): Continue prior to hospital dose of atorvastatin 80 mg (4) Lung mass: Patient is in the process of ongoing workup. Bare-metal stenting may be best approach to avoid need for long-term uninterrupted dual antiplatelet therapy. This will be determined based on her coronary anatomy. (5) MUNIR (acute kidney injury): Patient's previous baseline creatinine appears to be in the range of 1- 1.2. Creatinine on presentation last night was 1.54 and is trended toward improvement 1.37 this morning. Continue hydration with normal saline, pending potential need for radiographic contrast for cardiac catheterization. History of Present Illness Attending Physician: Fátima Oliveira DO History of Present Illness Melisa Hernadez is a 73 year old male seen in cardiology consultation per the r equest of Dr. Curtis for the evaluation of chest pain. The patient's primary mounter brass wind instruments is Dr. Ra Williamson of our practice with most recent outpatient visit having been performed last month in November, at which time stable cardiac signs and symptoms were noted. Her blood pressure had recently been above goal prompting titration of lisinopril. The patient states that she was in her normal state of health until yesterday when she did not feel well all day long with a vague sensation of uneasiness. She went to [employer] with her family for dinner last night and had a salad and lobster tail. After she returned home between 8 and 9 PM she developed chest heaviness under her left breast that radiated into her axillas bilaterally and shoulders and wrapped around her back. The discomfort persisted prompting her to her sent to the emergency department. She was hypertensive on presentation with a blood pressure last evening at 2352 of 210/59. This is trended toward improvement with most recent readings of 142/62 and 111/73 . She received a single dose of sublingual nitroglycerin last night at 2352 with relief of her discomfort. She notes that overnight last night however the discomfort waxed and waned to a lesser severity. At present she is relatively comfortable, but still does not feel 100% improved. Past Cardiac / Interventional History: Chronic coronary heart disease, remote RCA territory stenting 2010October,, non-STEMI, bare-metal stent placed in the mid LAD June 2018, non-STEMI, diagnostic cardiac catheterization performed at [facility] by Dr. Aden of our practice with findings of moderate diffuse disease in the LAD, left circumflex was small with a 70-80% stenosis of the mid vessel Culprit 80 to 90% mid right coronary artery lesion with in-stent restenosis of the previously placed stent. The patient therefore underwent PCI and bare-metal stenting of the mid right coronary artery. She has remained on chronic aspirin plus clopidogrel since the June 2018 event. A bare-metal stent was utilized at that time as she was undergoing a repeat work-up for recurrent lung cancer History of left carotid endarterectomy History of lung carcinoma with right middle and right lower bilobectomy 8-9 years ago. Right upper lobe spiculated lung mass FDG avid on PET scan) diagnosed in June,, endobronchial biopsy failed to yield tissue consistent with malignancy. The patient had since been treated with a short course of radiation therapy in early 2018. She is following up Dr. Townsend of [facility] thoracic surgery, and she tells me she has an upcoming repeat "scan" (she is not sure if a CT or PET is planned). Allergies Allergy/AdvReac Type Severity Reaction Status Date / Time No Known Allergies Allergy Verified 01/07/19 22:39 Home Medications Home Medications Medication Instructions Recorded Confirmed Type Incruse Ellipta 1 inh INHALATION QAM 06/28/18 01/07/19 History aspirin [Ecotrin Low Strength] 81 mg PO QPM 07/21/18 01/07/19 History atorvastatin 80 mg PO QPM 07/21/18 01/07/19 History metoprolol succinate 25 mg PO QAM 07/21/18 01/07/19 History clopidogrel 75 mg PO QAM 08/26/18 01/07/19 History isosorbide mononitrate 60 mg PO QAM 01/07/19 01/07/19 History lisinopril-hydrochlorothiazide 1 tab PO QAM 01/07/19 01/07/19 History Patient History Medical History Anxiety (Chronic) CKD (chronic kidney disease), stage III (Chronic) COPD (chronic obstructive pulmonary disease) (Chronic) Carotid artery disease (Chronic) Coronary artery disease (Chronic) Dyslipidemia (Chronic) HTN (hypertension) (Chronic) Hypoxemia (Chronic) Wears oxygen at home Lung cancer (Chronic) dx'd 2009 and surgically removed;Right middle and lower lobes; Mediastinal lymphadenopathy (Resolved) Mediastinoscopy and biopsy done - negative for malignancy - 08/27/18 NSTEMI (non-ST elevated myocardial infarction) (Resolved) 10/15/17 and again on 06/29/18 PATIENT HAD CATH ON 06/29/18 SHOWING RE-STENOSIS OF PROXIMAL RCA. BARE METAL STENT WAS PLACED INSTEAD OF CHARLES IN ANTICIPATION OF KNOWN UPCOMING PULMONARY SURGICAL PROCEDURE (EBUS/HASMUKH BRONCH 07/23/18). Pulmonary nodule Surgical History History of cholecystectomy (Chronic) lap History of cardiac cath (Resolved) 10/2010 - Stent to RCA 10/2017 - bare metal stent to mid RCA at [facility] 06/2018 - BMS to RCA at [facility] History of left-sided carotid endarterectomy (Resolved) History of lobectomy of lung (Resolved) R middle and lower lobectomy - 2009 or 2010 History of bilateral tubal ligation History of bronchoscopy History of section x4 History of colonoscopy History of dilatation and curettage History of discectomy ~2002 Lumbar spine History of esophagogastroduodenoscopy (EGD) History of lung biopsy Family History Mother , in her 80s;Natural causes No problems noted. Father , in his 70s Stroke Heart disease Brother No problems noted. Brother No problems noted. Sister Hodgkins lymphoma Sister Lung cancer, primary, with metastasis from lung to other site Sister No problems noted. Son No problems noted. Son No problems noted. Daughter No problems noted. Daughter No problems noted. 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 Specifically the patient denies any recent bleeding problems. She denies any cough or hemoptysis Physical Exam Vital Signs (Past 24 Hours): Last Vital Signs Temp 37.0 C 01/08/19 06:58 Pulse 69 01/08/19 06:58 Resp 17 01/08/19 06:58 BP 111/73 01/08/19 06:58 Pulse Ox 100 01/08/19 06:58 Physical Exam: General: no acute distress and stated age Eyes: conjunctiva are pink and non-injected, sclera clear Neck: normal jugular venous pulse, no hepatojugular reflux Chest: normal shape and normal respiratory effort Lungs: clear to auscultation and percussion Cardiac Exam: - regular heart sounds, no murmurs, rubs, or gallops, no jugular venous distention Abdomen: abdomen soft, non-tender, no abnormal masses and no hepatosplenomegaly Extremities: no edema and no cyanosis Neuro:awake, coversant, follows commands, no focal motor deficits Psych: appropriate affect and insight. Results & Data Laboratory Results Cardiac Enzymes 01/07/19 01/08/19 01/08/19 Range/Units 21:45 05:31 05:31 AST 15 10 L Cancelled (15-37) U/L Troponin I < 0.015 0.341 H* (0-0.045) ng/ml Coagulation 01/07/19 01/07/19 Range/Units 21:45 22:50 PT Cancelled 9.9 APTT Cancelled 24.5 CBC 01/07/19 01/08/19 Range/Units 21:45 05:31 WBC 8.81 8.11 (4.8-10.8) K/uL RBC 3.99 L 3.52 L (4.2-5.4) M/uL Hgb 10.9 L 9.5 L (12.0-16.0) g/dL Hct 34.0 L 29.6 L (37-47) % Plt Count 240 209 (130-400) K/uL Neut # (Auto) 5.96 5.50 (1.4-6.5) K/uL Lymph # (Auto) 2.03 1.69 (1.2-3.4) K/uL [place] # (Auto) 0.65 H 0.77 H (0.11-0.59) K/uL Eos # (Auto) 0.13 0.12 (0-0.5) K/uL Baso # (Auto) 0.02 0.02 (0-0.2) K/uL Comprehensive Metabolic Panel 01/07/19 01/08/19 01/08/19 Range/Units 21:45 05:31 05:31 Sodium 139 141 Cancelled (136-145) mmol/L Potassium 4.2 4.2 Cancelled (3.5-5.1) mmol/L Chloride 107 111 H Cancelled (98-107) mmol/L Carbon Dioxide 27 26 Cancelled (21-32) mmol/L BUN 36 H 33 H Cancelled (7-18) mg/dl Creatinine 1.54 H 1.37 H Cancelled (0.6-1.2) mg/dl Glucose 141 H 102 H Cancelled (70-99) mg/dl Calcium 9.5 8.7 Cancelled (8.5-10.1) mg/dl AST 15 10 L Cancelled (15-37) U/L ALT 18 14 Cancelled (12-78) U/L Alkaline Phosphatase 142 H 113 Cancelled (45-117) U/L Total Protein 8.4 H 6.8 Cancelled (6.4-8.2) gm/dl Albumin 4.1 3.3 L Cancelled (3.4-5.0) gm/dl Intake and Output 01/07/19 01/08/19 01/08/19 22:59 06:59 14:59 Output Total 400 / 400 Balance -400 / -400 Output: Urine 400 / 400 Other: Other Intake Source sips Weight 58.4 kg 64.2 kg Diagnostic Findings EKG tracings performed since arrival to the emergency room last evening, first EKG 01/07/19 at 2135 revealed sinus rhythm with baseline artifact, and ST changes specifically in the lateral precordial leads to a more subtle degree in the inferior leads. There is also [address] elevation noted limited to lead aVR which is considered a reciprocal change. EKG performed 01/07/19 at 2303 revealed subtle improvement in the inferior and lateral repolarization changes as well as the ST elevation in lead aVR, but still has suggestion of possible some endocardial ischemia. EKG performed 01/07/19 at [address] depression. Repeat this morning reveals subtle improvement in the lateral and inferior repolarization abnormalities. Looking back to the patient's post stent EKG performed 06/30/18, lateral ST depression is noted somewhat similar to her presenting EKG this time. EKG performed at this morning is actually much improved compared to 06/30/18 For comparison, I reviewed EKG performed as an outpatient at [facility] on 11/17/18: Normal sinus rhythm at 74 bpm was noted at that time, the ST segments were normal without suggestion of ischemia or infarction at that time.
[2019-01-08] MEDS ORDERED: Heparin Adult STANDARD Wt-Based Dextrose 5% 25,000 units/500 mL IV SCH (09:30)
[2019-01-08] MEDS ORDERED: HEPARIN IV BOLUS 4,000 UNITS in SYRINGE 0 ML IV ONE (09:30)
--- NOTE | 2019-01-08 09:51 | Hospitalist Progress Note ---
Date of Service January 08, 2019 Assessment & Plan (1) NSTEMI (non-ST elevated myocardial infarction): Recent BMS placed to RCA in Jun 2018. Similar presentation as yesterday. Troponin rise overnight. Cardiology placed a heparin drip. Cont ASA, Lip 40, Plavix 75 nd Toprol XL 25. Plans for cath today ADDENDUM: heart cath revealed an in-stent stenosis and she will transfer to the ICU for monitoring. (2) Non-small cell cancer of right lung: h/o this with new spiculated lung nodule. Plans for outpatient biopsy in 3 weeks time. (3) COPD (chronic obstructive pulmonary disease): Stable, no wheezing. Cont home inhalers. (4) HTN (hypertension): At goal, holding lis/HCTZ as creat was slightly elevated yesterday. See below. (5) CKD (chronic kidney disease) stage 3, GFR 30-59 ml/min: Creat was slightly elevated to 1.6 yesterday and lis/HCTZ was held. Creat is back to baseline 1.3 today but will cont to hold this medication with recent heart catheterization. Consider adding back in 1-2 days. (6) DVT prophylaxis: Heparin drip Full code Dispo-to ICU Fátima Oliveira DO [facility] Hospitalist Subjective 73 yo F presented with chest tightness and malaise. Overnight felt better. Troponin rohith, and she was placed on a heparin drip. She is a nonsmoker, quit 8 years ago. She denies any SOB. She has a spiculated lung nodule for which she is going for biopsy in 3 weeks. Physical Exam Vital Signs (Past 24 Hours): Last Vital Signs Temp 37.0 C 01/08/19 06:58 Pulse 68 01/08/19 08:30 Resp 17 01/08/19 06:58 BP 111/73 01/08/19 06:58 Pulse Ox 100 01/08/19 06:58 CONSTITUTIONAL: WNWD, vitals as above, generally well-appearing EYES: normal conjuctivae, no scleral icterus ENT: MMM RESPIRATORY: clear to auscultation bilaterally, no crackles, rales or wheezes, normal respiratory effort CARDIOVASCULAR: regular rate and rhythm, S1 and 2 heard without murmurs, gallops or rubs, no JVD, no peripheral edema GASTROINTESTINAL: normal bowel sounds, soft, nontender, nondistended MUSCULOSKELETAL: strength 5/5 throughout, head is normocephalic and atraumatic, no gross focal deficits. SKIN: warm and dry NEUROLOGIC: CN 2-12 grossly intact, no sensory deficit, normal cognition, normal speech, no tremor PSYCHIATRIC: alert cooperative and oriented to person, place and time. Results & Data Laboratory Results Short CBC 01/07/19 01/08/19 Range/Units 21:45 05:31 WBC 8.81 8.11 (4.8-10.8) K/uL Hgb 10.9 L 9.5 L (12.0-16.0) g/dL Hct 34.0 L 29.6 L (37-47) % Plt Count 240 209 (130-400) K/uL BMP 01/07/19 01/08/19 01/08/19 21:45 05:31 05:31 Sodium 139 141 Cancelled Potassium 4.2 4.2 Cancelled Chloride 107 111 H Cancelled Carbon Dioxide 27 26 Cancelled BUN 36 H 33 H Cancelled Creatinine 1.54 H 1.37 H Cancelled Glucose 141 H 102 H Cancelled Calcium 9.5 8.7 Cancelled Cardiac Enzymes 01/07/19 01/08/19 Range/Units 21:45 05:31 Troponin I < 0.015 0.341 H* (0-0.045) ng/ml Liver Function 01/07/19 01/08/19 01/08/19 Range/Units 21:45 05:31 05:31 Total Bilirubin 0.2 0.2 Cancelled (0.2-1) mg/dl AST 15 10 L Cancelled (15-37) U/L ALT 18 14 Cancelled (12-78) U/L Alkaline Phosphatase 142 H 113 Cancelled (45-117) U/L Albumin 4.1 3.3 L Cancelled (3.4-5.0) gm/dl Medications Administered Current Inpatient Medications Acetaminophen (Tylenol) 650 mg PO Q4H PRN PRN Reason: Pain or Fever Stop: 02/07/19 02:10 Aspirin (Ecotrin Ectab) 81 mg PO QPM [facility]A Stop: 02/07/19 20:59 Atorvastatin Calcium (Lipitor) 80 mg PO QPM [facility]A Stop: 02/07/19 20:59 Clopidogrel Bisulfate (Plavix) 75 mg PO QAM [facility] Stop: 02/07/19 08:59 Last Admin: 01/08/19 08:55 Dose: 75 mg Documented by: Sodium Chloride (Nss 1000ml) 1,000 mls @ 80 mls/hr IV .[id number] [facility] Stop: 01/08/19 21:14 Last Admin: 01/08/19 05:35 Dose: 80 mls/hr Documented by: Heparin Sodium/Dextrose (Heparin Sodium/Dextrose) 25,000 units in 500 mls @ 19 mls/hr IV .Q24H [facility]; Protocol Stop: 02/07/19 09:29 Isosorbide Mononitrate (Imdur Extended Rel) [facility] [place] [facility] Stop: 02/07/19 08:59 Last Admin: 01/08/19 08:54 Dose: 60 mg Documented by: Metoprolol Succinate (Toprol Xl) 25 mg PO QAM [facility] Stop: 02/07/19 08:59 Last Admin: 01/08/19 08:55 Dose: 25 mg Documented by: Miscellaneous (Order Awaiting Action) 1 ea N/A DAILY [facility] Stop: 02/07/19 08:59 Morphine Sulfate (Morphine Sulfate) 4 mg IV Q4 PRN PRN Reason: Pain Stop: 01/22/19 02:10 Nitroglycerin (Nitrostat) 0.4 mg SL UD PRN PRN Reason: Chest Pain Stop: 02/07/19 02:10 Ondansetron HCl (Zofran) 4 mg IV Q6H PRN PRN Reason: Nausea Stop: 02/07/19 02:10 Polyethylene Glycol (Miralax Powder Packet) 17 gm PO DAILY PRN PRN Reason: Constipation Stop: 02/07/19 02:10
[2019-01-08 10:17] LABS: Partial Thromboplastin Ratio 0.9; Partial Thromboplastin Time 25.1 Seconds (21.0-31.0); Prothrombin Time 10.2 Seconds (9.0-12.0)
[2019-01-08] MEDS ORDERED: PERFLUTREN LIPID MICROSPHERE (DEFINITY) IV ONE (10:24)
[2019-01-08] MEDS ORDERED: ASPIRIN 81 MG CHEW PO STA (11:10)
[2019-01-08] MEDS ORDERED: ASPIRIN 81 MG CHEW ONE (11:12)
[2019-01-08] MEDS ORDERED: MIDAZOLAM HCL 1 MG/ML 2ML VIAL ONE (11:31)
[2019-01-08] MEDS ORDERED: fentaNYL citrate 100 MCG/2 ML VIAL ONE (11:31)
[2019-01-08] MEDS ORDERED: NITROGLYCERIN/D5W 100MCG/ML 20ML SYR ONE (11:32)
[2019-01-08] MEDS ORDERED: NiCARDipine HCL INJ 2.5 MG/ML 10 ML AMP ONE (11:32)
[2019-01-08] MEDS ORDERED: HEPARIN (PORCINE) 1000 UNIT/ML 10 ML (CATH LAB USE ONLY) ONE (11:32)
--- NOTE | 2019-01-08 13:18 | Cardiac Catheterization ---
Cardiac Cath Procedure Full Procedure Date January 08, 2019 Pre-Procedure Diagnosis Pre-Procedure Diagnosis: Non STEMI AUC Score AUC Score: 8 Post-Procedure Diagnosis Post-Procedure Diagnosis: Severe CAD and Successful PCI Procedure(s) Performed Procedure(s) Performed: Coronary Angiography, Left Heart Cath, PTCA and Femoral Artery Angiography Freelance Programmer/App Developer Natasha Morrison Estimated Blood Loss Estimated Blood Loss: None Summary of Findings 2 Hemodynamics Rest Ao:: 90/57 Final Ao: 121/66 LV: 0 Recommendations Recommendations: Medical Therapy and/or Counseling and PCI without planned CABG Radiation Exposure (mGy) 0 Contrast (mls) n ACC Data: [employer] Platemaker Cardiac Status Clinical evaluation leading to the procedure Pt with CP and EKG changes. Prior CAD Pt was access was initially attempted through the right radial artery without success. Arterial access was achieved through the groin with a 6f sheath using the seldinger technique. A diagnostic JL 3.5 and a JR 4 guide was used to perform the cardiac cath. LM: 20-30% mid body stenosis LAD: 50-60% stenosis with apical collaterals to the RCA Circ: prior 50-60% diffuse stenosis RCA: 90% proximal to mid body in stent stenosis. The lesion was crossed with a BMW wire. The lesion was ballooned repeatedly for 1-2min intervals with a 3.0x20mm at high NINFA, from mid vessel to [place]. RESHMA 3 flow was achieved with 20-30% residual instant restonoisis. CAD Presenation: Unstable angina Anginal Classification: CCS IV Heart Failure: No Cardiogenic Shock within 24 Hours: No Cardiac Arrest within 24 Hours: No Imaging Studies Past 6 Months: No Stress Studies Past 6 Months: No Standard Exercise Test: No Stress Testing w/SPECT MPI: No Cardiac CTA: No STEMI OR Non-STEMI Symptom Onset Date: 01/07/19 Symptom Onset Time: 08:03 Thrombolytics: No Coronary Anatomy Dominant: Right Left Main (% Stenosis): Mid (20) LAD (% Stenosis): Mid (40) Circumflex (% Stenosis): Mid (60) RCA (% Stenosis): Proximal (80) and Mid (90) Diagnostic Physicians Name: Natasha Morrison Status: Urgent Closure Device Percutaneous Entry Location: Femoral Closure Device: None-Manual Hold Recommendations: Medical Therapy and/or Counseling and PCI without planned CABG PCI Indication: Unstable Angina First Noted: First EKG Lesion Segment Name: Proximal and mid RCA Culprit Artery: Yes Stenosis Prior to Rx (%): 90 Chronic Total Occlusion: No IVUS: No FFR: No Previously Treated Lesion: Yes Lesion Complexity: High/C Lesion Length (mm): 25 Thrombus Present: Yes Bifurcation Lesion: Yes Guidewire Across Lesion: Yes Intraprocedure Events Significant Disection: No Perforation: No
[2019-01-08] MEDS ORDERED: MoRPHine SULFATE 2 MG/ML CARP IV STA (17:05)
[2019-01-08] MEDS: MoRPHine SULFATE 2 MG/ML CARP IV PRN ×2 (17:26→22:05)
[2019-01-08] MEDS: ATORVASTATIN 40 MG TAB PO SCH (20:44)
[2019-01-08] MEDS: ASPIRIN 81 MG ECTAB PO SCH (20:44)
[2019-01-08] MEDS ORDERED: SODIUM CHLORIDE 0.9% 1000ML 1,000 ML IV SCH (21:00)
[2019-01-09 05:02] LABS: Hematocrit (blood only) 28.7 % (37-47); Mean Corpuscular Hgb Conc 31.4 g/dL (32-36); Mean Corpuscular Volume 85.9 fL (80-100); Mean Platelet Volume 10.2 fL (7.4-10.4); Platelet Count 169 K/uL (130-400); RDW Coefficient of Variation 15.5 % (11.5-14.5); RDW Standard Deviation 48.2 fL (36.4-46.3); Red Blood Count 3.34 M/uL (4.2-5.4); White Blood Count 8.16 K/uL (4.8-10.8)
[2019-01-09 05:22] LABS: BUN Creatinine Ratio 21.2 (10-20); Calcium 8.9 mg/dl (8.5-10.1); Creatinine Clr Calc Pharmacy 32.8 ml/min; Est GFR (African American) 45.7; Est GFR (Non-African American) 39.4; Potassium 4.8 mmol/L (3.5-5.1)
[2019-01-09] MEDS: METOPROLOL SUCC 25MG EXT REL TAB PO SCH (08:53)
[2019-01-09] MEDS: ISOSORBIDE MONO EXTENDED REL 60 MG TABCR PO SCH (08:53)
[2019-01-09] MEDS: UMECLIDINIUM BROMIDE INH SCH (08:53)
[2019-01-09] MEDS: CLOPIDOGREL BISULFATE 75 MG TAB PO SCH (08:53)
--- NOTE | 2019-01-09 09:00 | Cardiology Progress Note ---
Date of Service January 09, 2019 Assessment & Plan (1) NSTEMI (non-ST elevated myocardial infarction): Patient with complex 90% in-stent restenosis of the proximal right coronary artery for which she underwent cardiac catheterization, with plain balloon angioplasty to the affected area with excellent angiographic results. The patient already had 2 layers of stent in that area, and therefore plain balloon angioplasty was performed. If she has future in-stent restenosis in that territory, future considerations include brachii therapy, laser therapy, rotational atherectomy. Continue medication therapy with aspirin, clopidogrel, metoprolol, atorvastatin 80 mg daily. -Discontinue IV fluid -Transfer to telemetry unit (2) HTN (hypertension): Stable. Continue prior to hospital metoprolol dose. Her lisinopril/HCTZ is on hold with the administration of contrast yesterday. If kidney function electrolytes are stable on 01/10/19, will likely reinitiate lisinopril HCTZ. (3) HLD (hyperlipidemia): Continue atorvastatin 80 mg daily (4) CKD (chronic kidney disease) stage 3, GFR 30-59 ml/min: Discontinue IV fluids. Hold lisinopril/HCTZ. Repeat creatinine 01/10/19 DVT prophylaxis: Right femoral arterial access site is stable, will start Lovenox DVT prophylaxis dose today. Subjective Chief complaint: Follow-up chest discomfort, non-ST segment elevation myocardial infarction Subjective: Patient resting comfortably. Her right femoral sheath remained in place until approximately 7 PM last night 01/08/19, and therefore she remained in the ICU for the purpose of continuity of care. Telemetry reveals stable sinus bradycardia in the range of 56 bpm at rest this morning. Laboratory studies reveal stable kidney function with creatinine of 1.35 today compared to 1.37 yesterday. EKG reveals stable sinus rhythm, the previously noted inferior and lateral ST segment changes noted on presentation yesterday and last night have resolved. No anginal symptoms. Physical Exam Vital Signs (Past 24 Hours): Last Vital Signs Temp 36.8 C 01/09/19 04:00 Pulse 61 01/09/19 07:01 Resp 16 01/09/19 07:01 BP 146/48 H 01/09/19 07:01 Pulse Ox 99 01/09/19 07:01 Physical Exam: General: no acute distress and stated age Eyes: conjunctiva are pink and non-injected, sclera clear Neck: normal jugular venous pulse, no hepatojugular reflux Chest: normal shape and normal respiratory effort Lungs: clear to auscultation and percussion Cardiac Exam: - regular heart sounds, no murmurs, rubs, or gallops, no jugular venous distention Abdomen: abdomen soft, non-tender, no abnormal masses and no hepatosplenomegaly Extremities: Right femoral arterial access site is clean dry and intact with the bandage, no hematoma, attempted right radial artery access site is mildly ecchymotic with mild small localized hematoma. Neuro:awake, coversant, follows commands, no focal motor deficits Psych: appropriate affect and insight. Results & Data Medications Administered Current Inpatient Medications Acetaminophen (Tylenol) 650 mg PO Q4H PRN PRN Reason: Pain or Fever Stop: 02/07/19 02:10 Aspirin (Ecotrin Ectab) 81 mg PO QPM [facility] Stop: 02/07/19 20:59 Last Admin: 01/08/19 20:44 Dose: 81 mg Documented by: Atorvastatin Calcium (Lipitor) 80 mg PO QPM [facility] Stop: 02/07/19 20:59 Last Admin: 01/08/19 20:44 Dose: 80 mg Documented by: Clopidogrel Bisulfate (Plavix) 75 mg PO [facility] Stop: 02/07/19 08:59 Last Admin: 01/09/19 08:53 Dose: 75 mg Documented by: Isosorbide Mononitrate (Imdur Extended Rel) 60 mg PO [facility] Stop: 02/07/19 08:59 Last Admin: 01/09/19 08:53 Dose: 60 mg Documented by: Metoprolol Succinate (Toprol Xl) 25 mg PO [facility] Stop: 02/07/19 08:59 Last Admin: 01/09/19 08:53 Dose: 25 mg Documented by: Morphine Sulfate (Morphine Sulfate) 2 mg IV Q4 PRN PRN Reason: Pain Stop: 01/22/19 17:04 Last Admin: 01/08/19 22:05 Dose: 2 mg Documented by: Nitroglycerin (Nitrostat) 0.4 mg SL UD PRN PRN Reason: Chest Pain Stop: 02/07/19 02:10 Ondansetron HCl (Zofran) 4 mg IV Q6H PRN PRN Reason: Nausea Stop: 02/07/19 02:10 Polyethylene Glycol (Miralax Powder Packet) 17 gm PO DAILY PRN PRN Reason: Constipation Stop: 02/07/19 02:10 Umeclidinium Brady (Incruse Ellipta) 1 ea INH QAM [facility] Stop: 02/08/19 08:59 Last Admin: 01/09/19 08:53 Dose: 1 ea Documented by:
[2019-01-09] MEDS: ENOXAPARIN INJ 40 MG/0.4 ML SYR SQ SCH (11:04)
--- NOTE | 2019-01-09 19:39 | Hospitalist Progress Note ---
Date of Service January 09, 2019 Assessment & Plan (1) NSTEMI (non-ST elevated myocardial infarction): Status post heart catheterization revealing 90 percent in-stent restenosis, received balloon angioplasty with resolution of chest pain. History of bare-metal stent to RCA in June 2018. Clinically improved overnight. Continue medical management per cardiology. (2) Non-small cell cancer of right lung: h/o this with new spiculated lung nodule. Plans for outpatient biopsy in 3 weeks time. (3) COPD (chronic obstructive pulmonary disease): Stable, no wheezing. Cont home inhalers. (4) HTN (hypertension): At goal, holding lis/HCTZ as creat was slightly elevated and just had heart catheterization with contrast. (5) CKD (chronic kidney disease) stage 3, GFR 30-59 ml/min: Creat was slightly elevated to 1.6 yesterday and lis/HCTZ was held. Creat is back to baseline 1.3 today but will cont to hold this medication with recent heart catheterization. Consider adding back in 1-2 days. (6) DVT prophylaxis: Heparin/SCDs Full code Dispo-to home in am. Fátima Oliveira DO [facility] Hospitalist Subjective Recovering well from heart catheterization yesterday. Femoral site looks good. Radial site has some ecchymosis but otherwise looks good. She denies any chest pain or shortness of breath. She is on oxygen at home with ambulation and is not requiring this at rest. Physical Exam Vital Signs (Past 24 Hours): Last Vital Signs Temp 37.2 C 01/09/19 19:10 Pulse 77 01/09/19 19:10 Resp 18 01/09/19 19:10 BP 147/77 H 01/09/19 19:10 Pulse Ox 98 01/09/19 19:10 CONSTITUTIONAL: WNWD, vitals as above, generally well-appearing EYES: normal conjuctivae, no scleral icterus ENT: MMM RESPIRATORY: clear to auscultation bilaterally, no crackles, rales or wheezes, normal respiratory effort CARDIOVASCULAR: regular rate and rhythm, S1 and 2 heard without murmurs, gallops or rubs, no JVD, no peripheral edema GASTROINTESTINAL: normal bowel sounds, soft, nontender, nondistended MUSCULOSKELETAL: strength 5/5 throughout, head is normocephalic and atraumatic, no gross focal deficits. SKIN: warm and dry, some ecchymosis of R radial area, but R femoral site is clear and nontender. NEUROLOGIC: CN 2-12 grossly intact, no sensory deficit, normal cognition, normal speech, no tremor PSYCHIATRIC: alert cooperative and oriented to person, place and time. Results & Data Laboratory Results Short CBC 01/09/19 Range/Units 04:29 WBC 8.16 (4.8-10.8) K/uL Hgb 9.0 L (12.0-16.0) g/dL Hct 28.7 L (37-47) % Plt Count 169 (130-400) K/uL BMP 01/09/19 04:29 Sodium 140 Potassium 4.8 Chloride 111 H Carbon Dioxide 25 BUN 29 H Creatinine 1.35 H Glucose 91 Calcium 8.9 Cardiac Enzymes 01/09/19 Range/Units 04:29 Troponin I 2.810 H* (0-0.045) ng/ml Medications Administered Current Inpatient Medications Acetaminophen (Tylenol) 650 mg PO Q4H PRN PRN Reason: Pain or Fever Stop: 02/07/19 02:10 Aspirin (Ecotrin Ectab) 81 mg PO QPM [facility] Stop: 02/07/19 20:59 Last Admin: 01/08/19 20:44 Dose: 81 mg Documented by: Atorvastatin Calcium (Lipitor) 80 mg PO QPM [facility] Stop: 02/07/19 20:59 Last Admin: 01/08/19 20:44 Dose: 80 mg Documented by: Clopidogrel Bisulfate (Plavix) 75 mg PO QAM [facility] Stop: 02/07/19 08:59 Last Admin: 01/09/19 08:53 Dose: 75 mg Documented by: Enoxaparin Sodium ([facility]) [facility]: 02/08/19 09:29 Last Admin: 01/09/19 11:04 Dose: 40 mg Documented by: Isosorbide Mononitrate (Imdur Extended Rel) [facility] Stop: 02/07/19 08:59 Last Admin: 01/09/19 08:53 Dose: 60 mg Documented by: Metoprolol Succinate (Toprol Xl) [facility] Stop: 02/07/19 08:59 Last Admin: 01/09/19 08:53 Dose: 25 mg Documented by: Morphine Sulfate (Morphine Sulfate) 2 mg IV Q4 PRN PRN Reason: Pain Stop: 01/22/19 17:04 Last Admin: 01/08/19 22:05 Dose: 2 mg Documented by: Nitroglycerin (Nitrostat) 0.4 mg SL UD PRN PRN Reason: Chest Pain Stop: 02/07/19 02:10 Ondansetron HCl (Zofran) 4 mg IV Q6H PRN PRN Reason: Nausea Stop: 02/07/19 02:10 Polyethylene Glycol (Miralax Powder Packet) 17 gm PO DAILY PRN PRN Reason: Constipation Stop: 02/07/19 02:10 Umeclidinium [place] (Incruse Ellipta) 1 ea INH QAM [facility] Stop: 02/08/19 08:59 Last Admin: 01/09/19 08:53 Dose: 1 ea Documented by:
[2019-01-10] MEDS: ATORVASTATIN 40 MG TAB PO SCH (01:43)
[2019-01-10] MEDS: ASPIRIN 81 MG ECTAB PO SCH (01:43)
[2019-01-10 07:41] LABS: BUN Creatinine Ratio 20.2 (10-20); Calcium 8.9 mg/dl (8.5-10.1); Creatinine Clr Calc Pharmacy 32.5 ml/min; Est GFR (African American) 44.9; Est GFR (Non-African American) 38.7; Potassium 4.2 mmol/L (3.5-5.1)
[2019-01-10 07:48] LABS: Troponin I 1.5 ng/ml (0-0.045)
[2019-01-10] MEDS: ISOSORBIDE MONO EXTENDED REL 60 MG TABCR PO SCH (08:31)
[2019-01-10] MEDS: CLOPIDOGREL BISULFATE 75 MG TAB PO SCH (08:32)
[2019-01-10] MEDS: METOPROLOL SUCC 25MG EXT REL TAB PO SCH (08:32)
[2019-01-10] MEDS: ENOXAPARIN INJ 40 MG/0.4 ML SYR SQ SCH (08:32)
[2019-01-10] MEDS: UMECLIDINIUM BROMIDE INH SCH (08:33)
--- NOTE | 2019-01-10 10:20 | Cardiology Progress Note ---
Date of Service January 10, 2019 Assessment & Plan (1) NSTEMI (non-ST elevated myocardial infarction): 90% RCA in-stent restenosis status post POBA. No recurrent chest discomfort. Per interventional cardiology: If she has future in-stent restenosis in that territory, future considerations include brachii therapy, laser therapy, rotational atherectomy. Continue medication therapy: aspirin, clopidogrel, metoprolol, atorvastatin 80 mg daily. Patient may be discharged home. Cardiology follow-up scheduled 02/14/2019. (2) HTN (hypertension): BP trending upward. Restart Zestoretic 10/12.5 mg daily. (3) HLD (hyperlipidemia): Continue atorvastatin 80 mg daily (4) CKD (chronic kidney disease) stage 3, GFR 30-59 ml/min: Stable. DVT prophylaxis: Right femoral arterial access site is stable, will start Lovenox DVT prophylaxis dose today. Subjective Patient seen and examined at bedside. No recurrent chest discomfort overnight. Notes right wrist discomfort with associated hematoma. Discomfort improving. Creatinine trending downward. Denies orthopnea, PND, or edema. Zestoretic on hold due to elevated creatinine. Blood pressure trending upward. Patient offers no other concerns/complaints at this time. Review of Systems All systems reviewed & are unremarkable except as noted in HPI & below Physical Exam Vital Signs (Past 24 Hours): Last Vital Signs Temp 36.6 C 01/10/19 07:28 Pulse 71 01/10/19 08:00 Resp 16 01/10/19 07:28 BP 142/58 H 01/10/19 07:28 Pulse Ox 100 01/10/19 07:28 Physical Exam: General: NAD, AAO x3, well nourished. HEENT: Normocephalic. Atraumatic. Conjunctiva pink, no scleral icterus. Neck: No carotid bruits, the carotid upstrokes are brisk. No JVD. No HJR Heart: Regular normal S-1 and S-2 no S-3 or S-4 gallop. No murmurs or rub appreciated. PMI is not displaced. No RV heave. Lungs: Clear bilateral without rales , rhonchi, or wheeze. Abdomen: Normal bowel sounds. Soft. Nontender. No masses or organomegaly. No abdominal bruits. Extremities: No clubbing, cyanosis, or edema. Pulses: Right anterior wrist with associated ecchymosis. Diminished right radial pulse, posterior tibial=2/4. Neuro: Cranial nerves grossly intact. No focal motor deficit.
--- NOTE | 2019-01-10 11:04 | Discharge Summary ---
Date of Service January 10, 2019 Admission HPI Per Admitting Provider 73-year-old female with a past medical history of non-small cell lung cancer, coronary disease with stent to the RCA, COPD, hyperlipidemia, chronic kidney disease stage III, who presents to our emergency room with severe substernal chest pain radiating into her shoulders 10 out of 10 in nature. 2 EKGs were done in the emergency room which showed lateral ST depressions, her troponin so far is negative. She is on oxygen periodically as needed at home. She also has a history of right middle lobe and right lower lobe lobectomy secondary to non- small cell lung cancer. She has had radiation in the past. Assessment and Plan Severe substernal chest pain COPD CAD Chronic kidney disease stage III Hypertension Hyperlipidemia Cardiac evaluation, serial troponins, continue outpatient medications where appropriate, likely to be here less than 2 midnights will be under observation, oxygen, nebulizers. Gentle IV fluids ROS-No Headache, No Visual Changes, No Fever, No Chills, No Neck Pain or Stiffness, positive severe substernal chest Pain 10 out of 10 radiating into the back between the shoulder blades, No Palpitations, positive SOB, positive KING, positive cough, No Sputum, No Wheezing, No Abdominal Pain, No Diarrhea, No Hematemesis, No Hemoptysis, No Unexpected Weight Loss, No Flank pain, No Melena, No Hematochezia, No Frequency, No Urgency, No Burning, No Hematuria, No Rashes, No Diaphoresis. Appetite is Normal Physical Exam Gen-AAO x 3, NAD, Afebrile Head-NCAT, EOMI, PERRLA, Anicteric Sclera, No Posterior Pharyngeal Erythema Neck-Supple, No JVD, No Thyromegaly, No Masses, No LAD, No Bruits Lungs-Clear to Auscultation Bilaterally, No Rales, No Rhonchi, No Wheezing, No Crepitus Chest-No S4, +S1, +S2, No S3, No Murmurs, No Rubs, No Gallops, No Ectopy Abdomen-Soft, Bowel Sounds Present, Non Tender, Non Distended, No Hepatomegaly, No Splenomegaly, No Palpable Masses, No Rebound, No Rigidity, No Guarding Musculoskeletal-Full Range of Motion Bilaterally, No CVAT Extremities-No Cyanosis, No Clubbing, No Edema Nuero-Cranial Nerves II-XII grossly intact, Motor WNL, DTRs WNL, Strength WNL, No Focal Psych-Normal Mood [id number] cell lung cancer, coronary artery disease with a history of stent to the RCA, hyperlipidemia, hypertension, COPD, CKD 3 PSH-right middle lobe and right lower lobe lobectomy, cardiac cath to the RCA, endarterectomy, cholecystectomy FH-CVA, acute SC, Hodgkin's lymphoma x2, brain neoplasm, hypertension SH-, former smoker pack a day for 55 years, denies alcohol Meds reviewed and Reconciled Labs Reviewed Admission Exam Per Admitting Provider Physical Exam Gen-AAO x 3, NAD, Afebrile Head-NCAT, EOMI, PERRLA, Anicteric Sclera, No Posterior Pharyngeal Erythema Neck-Supple, No JVD, No Thyromegaly, No Masses, No LAD, No Bruits Lungs-Clear to Auscultation Bilaterally, No Rales, No Rhonchi, No Wheezing, No Crepitus Chest-No S4, +S1, +S2, No S3, No Murmurs, No Rubs, No Gallops, No Ectopy Abdomen-Soft, Bowel Sounds Present, Non Tender, Non Distended, No Hepatomegaly, No Splenomegaly, No Palpable Masses, No Rebound, No Rigidity, No Guarding Musculoskeletal-Full Range of Motion Bilaterally, No CVAT Extremities-No Cyanosis, No Clubbing, No Edema Nuero-Cranial Nerves II-XII grossly intact, Motor WNL, DTRs WNL, Strength WNL, No Focal Psych-Normal Mood Principal Diagnosis NSTEMI s/p heart catheterization with instent restenosis s/p balloon angioplasty Discharge Data Allergies Allergy/AdvReac Type Severity Reaction Status Date / Time No Known Allergies Allergy Verified 01/07/19 22:39 Consultations 01/07/19 23:52 ED Decision to Admit Stat 01/08/19 02:11 Consult Cardiology Routine Procedures Performed Operation Date: 01/08/19 11:30 Actual Procedures p Cath, Coronaries ONLY (no LV) - Blayne Nassar MD s Cineradiography w/Routine Exam - Natasha Morrison s POBA SGL Vessel - Natasha Morrison Ordered Studies 01/08/19 11:30 CL Cath Imgs for PACS use only Stat Hospital Course (1) NSTEMI (non-ST elevated myocardial infarction): (2) Non-small cell cancer of right lung: (3) COPD (chronic obstructive pulmonary disease): (4) HTN (hypertension): (5) CKD (chronic kidney disease) stage 3, GFR 30-59 ml/min: 73-year-old female arrived to the ER with chest pain that began one hour prior to arrival. She had a bare-metal stent placed to the RCA in June 2018. Blood pressure was notably elevated to 210/59 on arrival to the ER. EKG revealed normal sinus rhythm with lateral ST depressions without ST elevation or ectopy. Rate was 68 bpm and QTC was 410. Initial troponin was within normal limits, however this increased to 0.341 then 2.81. She was admitted to the Hospitalist service and Cardiology was consulted. Heparin drip was started in addition to her aspirin 81mg, atorvastatin 80mg, Plavix 75mg, metoprolol 25mg. As she was now having an NSTEMI, decision was made to take her for heart catheterization. Cardiac catheterization was performed on 01/08 and revealed a complex 90% in-stent restenosis of the proximal right coronary artery for which she underwent balloon angioplasty with excellent angiographic results. Of note she already had 2 layers of stent in this area and therefore plain balloon angioplasty was performed. Also of note, it is recommended by Cardiology that if she has future in-stent restenosis in that territory, treatment considerations would include brachii therapy, laser therapy, rotation annual arthrectomy. She was continued on medical therapy as above with no changes. Lisinopril/HCTZ was held for two days initially secondary to elevated creatinine and then because of administration of contrast during the heart catheterization. This was reinitiated on day of discharge as blood pressure was notably trending upward. On day of discharge she was oxygenating and mentating at baseline and was hemodynamically stable. She did have some ecchymosis to the right radial wrist that was improving, otherwise physical exam was unremarkable. She was ambulating at baseline and tolerating p.o. She was sent home in stable condition with close primary care follow-up recommended. She will need to touch base with Dr. Townsend regarding her upcoming planned lung biopsy. Total Time Total Time Spent Total Time Spent (In Minutes): 60 Total Time Includes: Examination of the Patient, Discharge Planning, Medication Reconciliation, Communication With Other Providers and Other Discharge Plan Discharge Items Patient Disposition: Home - Self-Care Reason For Visit: CHEST PAIN (CP) Discharge Diagnosis: NSTEMI Condition: Good Discharge Goals: Improve disease control Activity: As commented below Activity Comment: per post catheterization instructions. Non-emergency contact: Primary Care Provider Call non-emergency contact if: you have any medication questions, your symptoms worsen, your pain is not controlled, your pain is worsening and you have a fever Follow-up/Referrals: Marie Yuen MD [Primary Care Provider] - Diet: Heart Healthy Addtl Provider Instructions: Please take all medications as instructed on discharge list below. You have the following appointment scheduled: PRIMARY CARE Date & Time 01/12/2019 10:00 AM Provider Marie Yuen MD Department General Internal Medicine [facility] CARDIOLOGY Date & Time 02/14/2019 2:45 PM Provider Ra Williamson DO Department Cardiology, [facility] POST CATHETERIZATION INSTRUCTIONS: ACTIVITY RECOMMENDATIONS: Excess manipulation of the wrist or leg should be avoided for the next 24-48 hours. * No lifting over 2 pounds (approximately a 1/2 gallon of milk) with the utilized arm or leg for 24 hours. * No strenuous activity such as bowling or tennis for 3 days. * Keep the site of the procedure covered with a bandage for 24 hours. *You may shower the day after the procedure. Do not take a tub bath or submerge the puncture site in water for the next 3 days. *Do not operate any motorized equipment for 3 days. SPECIAL CARE INSTRUCTIONS: The site may be slightly bruised and sore following your procedure. Should any of the following occur, contact the Dr. who performed your procedure. 1. Redness/inflammation, swelling, chills, or fever, or colored drainage at procedure site within 3-7 days after your procedure. 2. Coldness, discoloration, ongoing numbness, severe pain, or swelling. Expect mild tingling of hand/leg and tenderness at the puncture site for up to three days. If this persists beyond three days, or other symptoms develop, notify the Dr. who performed your procedure. BLEEDING: If the procedure site on your wrist or groin begins to bleed, do not panic 1. Place 1 or 2 fingers firmly just slightly above the insertion site to stop the bleeding. You may be able to feel your pulse as you hold pressure. 2. Lift your finger after 5 minutes to see if the bleeding has stopped. 3. Once the bleeding has stopped, gently wipe the wrist area clean with a bandage. * If the bleeding from your wrist or groin does not stop after 10 minutes, or if there is a large amount of bleeding or spurting, call 911 ([address] drive yourself to the hospital). SKIN IRRITATION: * You may experience some redness and/or swelling in the area where radiation was administered. If any skin irritation occurs, please contact your family physician. FOLLOW UP VISIT: Keep any scheduled doctor appointments. It was a pleasure taking care of you! Please call if you have any questions or problems. You can reach a [facility] hospitalist on duty at [facility] 24 hours a day by calling [phone]. Take care of yourself. Fátima Oliveira, DO [facility] Prescriptions: Continued Incruse Ellipta 62.5 mcg/actuation Blister With Device 1 inh INHALATION QAM RF: 0 atorvastatin 80 mg Tablet 80 mg PO QPM RF: 0 aspirin [Ecotrin Low Strength] 81 mg tablet,delayed release (DR/EC) 81 mg PO QPM RF: 0 metoprolol succinate 25 mg tablet extended release 24 hr 25 mg PO QAM RF: 0 clopidogrel 75 mg Tablet 75 mg PO QAM RF: 0 isosorbide mononitrate 60 mg tablet extended release 24 hr 60 mg PO QAM RF: 0 lisinopril-hydrochlorothiazide 10-12.5 mg tablet 1 tab PO QAM RF: 0 Stand-Alone Forms: My [facility] Discharge Orders: Discharge Order (Routine); Ordered 01/10/19 Ordered By: Fátima Oliveira Admission Data Admit Date/Time: 01/08/19 13:26 Attending Provider: Fátima Oliveira Admit Provider: Bentley Curtis Primary Care Provider: Marie Yuen Other Providers: Bentley Curtis ; Arun White ; Adolfo Meza ; Delonte Aden ; Ra Williamson ; Jean Alonso ; Ian Matute ; Krystin Dean ; Teresita Zelaya Service: Telemetry Other Interventions: Discharge Summary Assessment (RN) Last Done: 01/10/19 11:28
[2019-01-10 11:20] VITALS: BP 118/66; TEMP 98.1; O2SAT 91
[2019-01-10 11:30] VITALS: PULSE 61
[2019-01-11] MEDS ORDERED: LISINOPRIL/HCTZ 10/12.5MG TAB PO SCH (09:00)
== END 2019-01-10 14:15 | disposition home or self-care (01) | DRG 250 ==
LOC: 2S 21:28 → ED 21:28 → 2S 01-08 01:20 → 1E 01-08 13:27 → 2S 01-09 19:12
PROC: CLB.CCO (2019-01-08 11:30)
DX: I12.9 Hypertensive chronic kidney disease with stage 1 through stage 4 chronic kidney disease, or unspecified chronic kidney disease; Y84.0 Cardiac catheterization as the cause of abnormal reaction of the patient, or of later complication, without mention of misadventure at the time of the procedure; J44.9 Chronic obstructive pulmonary disease, unspecified; N17.9 Acute kidney failure, unspecified; I21.4 Non-ST elevation (NSTEMI) myocardial infarction; Z79.02 Long term (current) use of antithrombotics/antiplatelets; Z79.82 Long term (current) use of aspirin; E78.5 Hyperlipidemia, unspecified; Z79.899 Other long term (current) drug therapy; Z90.2 Acquired absence of lung [part of]; L76.32 Postprocedural hematoma of skin and subcutaneous tissue following other procedure; Y71.2 Prosthetic and other implants, materials and accessory cardiovascular devices associated with adverse incidents; T82.855A Stenosis of coronary artery stent, initial encounter; R91.1 Solitary pulmonary nodule; Z87.891 Personal history of nicotine dependence; Z85.118 Personal history of other malignant neoplasm of bronchus and lung; Y92.239 Unspecified place in hospital as the place of occurrence of the external cause; Z95.5 Presence of coronary angioplasty implant and graft; I25.10 Atherosclerotic heart disease of native coronary artery without angina pectoris; N18.3 Chronic kidney disease, stage 3 (moderate); Z82.49 Family history of ischemic heart disease and other diseases of the circulatory system

== ENCOUNTER 2019-05-04 08:14 | Observation (INO) ==
[2019-05-04] MEDS ORDERED: NITROGLYCERIN/D5W 100MCG/ML 20ML SYR ONE (09:12)
[2019-05-04] MEDS ORDERED: NiCARDipine HCL INJ 2.5 MG/ML 10 ML AMP ONE (09:12)
[2019-05-04] MEDS ORDERED: fentaNYL citrate 100 MCG/2 ML VIAL ONE (09:12)
[2019-05-04] MEDS ORDERED: HEPARIN (PORCINE) 1000 UNIT/ML 10 ML (CATH LAB USE ONLY) ONE ×2 (09:12→11:20)
[2019-05-04] MEDS ORDERED: MIDAZOLAM HCL 1 MG/ML 2ML VIAL ONE ×2 (09:12→10:27)
--- NOTE | 2019-05-04 09:26 | Pre Anesthesia Assessment ---
Date of Service May 04, 2019 Pre Sedation Assessment Vital Signs Temp Pulse Pulse Pulse Pulse Resp BP 05/05/19 08:16 56 L 05/05/19 07:35 36.8 C 62 19 152/76 H 05/05/19 03:24 36.9 C 69 17 05/04/19 23:29 37.1 C 74 18 116/64 05/04/19 22:30 71 05/04/19 19:38 36.5 C 60 18 05/04/19 18:00 63 18 05/04/19 17:00 62 18 05/04/19 16:00 61 64 20 05/04/19 15:00 36.7 C 64 18 05/04/19 14:00 58 L 18 05/04/19 13:30 66 18 05/04/19 13:05 54 L 18 05/04/19 12:50 56 L 16 05/04/19 12:35 65 16 05/04/19 12:20 54 L 16 05/04/19 12:13 36.9 C 86 18 05/04/19 12:05 36.5 C 62 16 BP Pulse Ox 05/05/19 08:16 05/05/19 07:35 93 05/05/19 03:24 148/67 H 98 05/04/19 23:29 90 05/04/19 22:30 05/04/19 19:38 116/56 L 100 05/04/19 18:00 122/51 L 98 05/04/19 17:00 102/59 L 99 05/04/19 16:00 92/48 L 95 05/04/19 15:00 115/65 97 05/04/19 14:00 132/66 100 05/04/19 13:30 136/68 99 05/04/19 13:05 131/54 L 100 05/04/19 12:50 106/64 95 05/04/19 12:35 115/67 97 05/04/19 12:20 122/68 95 05/04/19 12:13 158/69 H 99 05/04/19 12:05 136/70 95 Cardiovascular RRR, no murmur, no edema Respiratory normal respiratory effort, lungs clear to auscultation Pre-Sedation Airway Assessment Smoking Status: Former smoker Hx Sleep Apnea: No Hx Difficult Intubation: No Short, Thick Neck: No Oral Cavity: + WNL Mallampati Class: II ASA: ASA3 Procedure Planning Contraindications for Sedation: none Current Medications Reviewed: Yes Notes The planned sedation has been discussed with the patient. Informed Consent was obtained. I have identified the patient, determined the appropriateness of sedation and have assessed the patient immediately prior to the procedure. All medicine(s) and interventions are by my order.
--- NOTE | 2019-05-04 09:26 | History & Physical Bridge Note ---
Date of Service May 04, 2019 History & Physical Bridge Note I have examined the patient, reviewed the History & Physical and in the interval since the performance of the History & Physical I have noted the following changes of clinical significance: no changes noted
--- NOTE | 2019-05-04 10:36 | Post Anesthesia Assessment ---
Date of Service May 04, 2019 Post Sedation Assessment Vital Signs Temp Pulse Pulse Pulse Pulse Resp BP 05/05/19 08:16 56 L 05/05/19 07:35 36.8 C 62 19 152/76 H 05/05/19 03:24 36.9 C 69 17 05/04/19 23:29 37.1 C 74 18 116/64 05/04/19 22:30 71 05/04/19 19:38 36.5 C 60 18 05/04/19 18:00 63 18 05/04/19 17:00 62 18 05/04/19 16:00 61 64 20 05/04/19 15:00 36.7 C 64 18 05/04/19 14:00 58 L 18 05/04/19 13:30 66 18 05/04/19 13:05 54 L 18 05/04/19 12:50 56 L 16 05/04/19 12:35 65 16 05/04/19 12:20 54 L 16 05/04/19 12:13 36.9 C 86 18 05/04/19 12:05 36.5 C 62 16 BP Pulse Ox 05/05/19 08:16 05/05/19 07:35 93 05/05/19 03:24 148/67 H 98 05/04/19 23:29 90 05/04/19 22:30 05/04/19 19:38 116/56 L 100 05/04/19 18:00 122/51 L 98 05/04/19 17:00 102/59 L 99 05/04/19 16:00 92/48 L 95 05/04/19 15:00 115/65 97 05/04/19 14:00 132/66 100 05/04/19 13:30 136/68 99 05/04/19 13:05 131/54 L 100 05/04/19 12:50 106/64 95 05/04/19 12:35 115/67 97 05/04/19 12:20 122/68 95 05/04/19 12:13 158/69 H 99 05/04/19 12:05 136/70 95 Recovery Score Activity: Moves 4 extremities Respiration: Deep Breath/Cough Circulation: +/-20% PreAnes Value Consciousness: Fully Awake Oxygen Saturation: > 92% On Room Air Post Sedation Plan On clinical assessment, the patient appears to have tolerated the sedation without complications. Patient is recovering as anticipated. Patient will continue to be monitored by nursing and may be discharged when sedation discharge criteria are met per below protocol. Upon Completions of procedure and additional 15 minutes continue every 5 minute vital signs and the P.A.R. score; then discharge to a Phase I or Fast Track to Phase II per the following guidelines: * Discharge Patient to appropriate Phase II area if PAR is 8 or greater or return to pre- procedure baseline. The post - procedure orders will be as directed. * If PAR score is less than 8 or not return to pre-procedure baseline then patient will follow Phase I monitoring till PAR is reached for Phase II. The Phase I may be done in procedure room or may call to secure a Phase I area. * If naloxone or flumazenil are used for reversal, hold in Phase I for continued monitoring from when last reversal dose was given for a minimum of 60 minutes or longer pending the nurse and/or physician discretion of patient condition before discharge to Phase II. Please call the Sedation Physician to re-evaluate and complete post-note for discharge to Phase II area. Do NOT discharge from procedure sedation or Phase 1 until post- sedation evaluation note is complete by procedure /sedation MD Sedation Discharge Instructions to be given to the patient at discharge to home.
--- NOTE | 2019-05-04 10:42 | Cardiac Catheterization ---
Cardiac Cath Procedure Full Procedure Date May 04, 2019 Pre-Procedure Diagnosis Pre-Procedure Diagnosis: Angina and CAD AUC Score AUC Score: 8 Post-Procedure Diagnosis Post-Procedure Diagnosis: Severe CAD and Elevated Intracardiac Pressures Procedure(s) Performed Procedure(s) Performed: Coronary Angiography, Left Heart Cath and Femoral Artery Angiography Foam Tank Laminator Ra Williamson DO Continuous Improvement Intern(s) Lucas ESCALERA Estimated Blood Loss Estimated Blood Loss: None (10cc) Medication(s) Medication(s): Fentanyl, Lidocaine 1% and Versed Summary of Findings Severe mid RCA in-stent restenosis Hemodynamics Rest Ao:: 136/44/77 Final Ao: 136/42/75 LV: 145/2/14 Recommendations Recommendations: PCI without planned CABG Specimens Specimens: None Radiation Exposure (mGy) 872 Contrast (mls) 65 Fluids (cc crystalloids) Fluids (cc crystalloids): 73cc Nss Anesthesia Moderate sedation. Start 0957. End 1052. 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 ACC Data: Marketing Effectiveness Manager Cardiac Status Clinical evaluation leading to the procedure CAD Presenation: Unstable angina Anginal Classification: CCS III Heart Failure: No Cardiogenic Shock within 24 Hours: No Cardiac Arrest within 24 Hours: No Imaging Studies Past 6 Months: No Stress Studies Past 6 Months: No Coronary Anatomy Left Main (% Stenosis): Distal (10%, moderate calcification) LAD (% Stenosis): Proximal (20%, moderate calcification), Mid (20-30%) and Distal (Gives rise to left to right collaterals.) D1 (% Stenosis): Proximal (10%) D2 (% Stenosis): Mid (20%) D3 (% Stenosis): Mid (40%) Circumflex (% Stenosis): Mid (40%) OM1 (% Stenosis): Ostial (99%, small 1.0-1.5mm vessel.) RCA (% Stenosis): Proximal (20%), Mid (90% in-stent stenosis) and Distal (50% distal to PDA) R PDA (% Stenosis): Normal R PL1 (% Stenosis): Mid (luminal irregularities, 10%) R PL2 (% Stenosis): Normal Diagnostic Physicians Name: Ra Williamson DO Closure Device Recommendations: PCI without planned CABG
[2019-05-04] MEDS ORDERED: CLOPIDOGREL BISULFATE 300 MG TAB ONE (11:46)
--- NOTE | 2019-05-04 11:53 | Post Anesthesia Assessment ---
Date of Service May 04, 2019 Post Sedation Assessment Vital Signs Temp Pulse Resp BP Pulse Ox 05/04/19 09:03 37 C 54 L 18 162/61 H 92 Recovery Score Activity: Moves 4 extremities Respiration: Deep Breath/Cough Circulation: +/-20% PreAnes Value Consciousness: Fully Awake Oxygen Saturation: > 92% On Room Air Discharge Sedation Level of Care: Fast Track Phase II Post Sedation Plan On clinical assessment, the patient appears to have tolerated the sedation without complications. Patient is recovering as anticipated. Patient will continue to be monitored by nursing and may be discharged when sedation discharge criteria are met per below protocol. Upon Completions of procedure and additional 15 minutes continue every 5 minute vital signs and the P.A.R. score; then discharge to a Phase I or Fast Track to Phase II per the following guidelines: * Discharge Patient to appropriate Phase II area if PAR is 8 or greater or return to pre- procedure baseline. The post - procedure orders will be as directed. * If PAR score is less than 8 or not return to pre-procedure baseline then patient will follow Phase I monitoring till PAR is reached for Phase II. The Phase I may be done in procedure room or may call to secure a Phase I area. * If naloxone or flumazenil are used for reversal, hold in Phase I for continued monitoring from when last reversal dose was given for a minimum of 60 minutes or longer pending the nurse and/or physician discretion of patient condition before discharge to Phase II. Please call the Sedation Physician to re-evaluate and complete post-note for discharge to Phase II area. Do NOT discharge from procedure sedation or Phase 1 until post- sedation evaluation note is complete by procedure /sedation MD Sedation Discharge Instructions to be given to the patient at discharge to home.
--- NOTE | 2019-05-04 12:03 | Cardiac Catheterization ---
Cardiac Cath Procedure Full Procedure Date May 04, 2019 Pre-Procedure Diagnosis Pre-Procedure Diagnosis: Angina and CAD AUC Score AUC Score: 8 Post-Procedure Diagnosis Post-Procedure Diagnosis: Severe CAD and Successful PCI Procedure(s) Performed Procedure(s) Performed: Coronary Angiography and Drug Eluting Stent Pin Machine Operator Gianni Nassar MD Cotton Ball Bagger(s) Lucas RTR Estimated Blood Loss Estimated Blood Loss: 10 Medication(s) Medication(s): Clopidogrel, Fentanyl, Heparin, Nicardipine, Nitroglycerin and Versed Summary of Findings Indication: Accelerating angina Access: 6 Fr right common femoral artery Catheters: AR-1 guide, telescope guide assist Findings: For full details of patient's coronary angiography please cath report dictated by Dr. Williamson. Briefly, patient found to have severe single vessel disease with severe mid in- stent restenosis of her RCA. Decision to proceed with PCI. -- PCI -- Antithrombotic therapy: Heparin, clopidogrel Procedure: RCA cannulated with AR-1 guide Director Of Strategic Sourcing 50 wire passed across lesion into distal vessel With the aid of a telescope, Mid RCA lesion predilated with 2.75 compliant balloon and 3.0 angiosculpt balloon Distal right posterior AV branch just after takeoff of PDA stented with 2.5 x 15 mm [place] drug eluting stent Stent postdilated with stent balloon Prior mid RCA stents overlapped with 3.0 x 34 mm [place] drug-eluting stent Stent post-dilated with 3.5 noncompliant balloon IC vasodilators administered for spasm Post procedure RESHMA 3 flow, stent well expanded with minimal residual stenosis and no apparent cardiac complications. Arterial Closure: angioseal Summary: 1. Successful PCI of mid RCA in-stent restenosis with single overlapping drug- eluting stent (3.0 x 34 mm [place]; postdilated with 3.5 NC). 2. Successful PCI of right posterior AV branch after takeoff of right PDA with single drug-eluting stent (2.5 x 15 mm [place]). 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 Continue dual-antiplatelet therapy for at least 6 months, likely indefinitely Continue statin, and ASCVD risk factor modification Consult cardiac Rehab Hemodynamics Rest Ao:: 111/35/61 Final Ao: 116/45/70 LV: Recommendations Recommendations: PCI without planned CABG Specimens Specimens: None Radiation Exposure (mGy) 3100 Contrast (mls) 160 Fluids (cc crystalloids) Fluids (cc crystalloids): 198 Drains Drains: None Anesthesia Moderate Procedural Complication(s) None Disposition PCU 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 Cardiac Status Clinical evaluation leading to the procedure CAD Presenation: Unstable angina Anginal Classification: CCS III Heart Failure: No Cardiogenic Shock within 24 Hours: No Cardiac Arrest within 24 Hours: No Imaging Studies Past 6 Months: Yes Stress Studies Past 6 Months: No Diagnostic Physicians Name: Gianni Nassar MD Status: Elective Closure Device Percutaneous Entry Location: Femoral Closure Device: Angio-Seal Recommendations: PCI without planned CABG PCI Indication: Unstable Angina Lesion Segment Name: mid RCA Culprit Artery: Yes Stenosis Prior to Rx (%): 90 Chronic Total Occlusion: No IVUS: No FFR: No Pre-Procedure RESHMA Flow: 3 Previously Treated Lesion: Timeframe: 1-5 months Treated with Stent: No In-Stent Restenosis: Yes In-Stent Thrombosis: No Yes Lesion Complexity: High/C Lesion Length (mm): 30 Thrombus Present: No Bifurcation Lesion: No Guidewire Across Lesion: Stenosis Post-Procedure (%): 0 Post-Procedure RESHMA Flow: 3 Devices(s) Deployed: Yes Yes Lesion #2 Segment Name: Distal RCA, R-PAV Culprit Artery: Yes Stenosis Prior to Rx (%): 70 Chronic Total Occlusion: No IVUS: No FFR: No Pre-Procedure RESHMA Flow: 3 Previously Treated Lesion: No Lesion Complexity: Non-High/Non-C Lesion Length (mm): 12 Thrombus Present: No Bifurcation Lesion: No Guidewire Across Lesion: Yes Stenosis Post-Procedure (%): 0 Post-Procedure RESHMA Flow: 3 Devices(s) Deployed: Yes Intraprocedure Events Significant Disection: No Perforation: No
[2019-05-04] MEDS ORDERED: ONDANSETRON INJ 2 MG/ML 2 ML VIAL IV PRN (12:04)
[2019-05-04] MEDS ORDERED: ACETAMINOPHEN 325 MG TAB PO PRN (12:04)
[2019-05-04] MEDS ORDERED: NITROGLYCERIN SL 0.4 MG/TAB TAB SL PRN (12:07)
[2019-05-04] MEDS ORDERED: OXYCODONE/ACETAMINOPHEN 5mg/325mg TAB PO PRN (12:07)
[2019-05-04] MEDS ORDERED: ALBUTEROL HFA 8 GM INHALER INH PRN (12:07)
[2019-05-04] MEDS: [UNRECOGNIZED DRUG - REMARK] SCH ×3 (13:04→20:40)
[2019-05-04] MEDS ORDERED: ATORVASTATIN 40 MG TAB PO SCH (21:00)
[2019-05-05 07:04] LABS: Basophils # (auto) 0.01 K/uL (0-0.2); Basophils % (auto) 0.1 %; Eosinophils # (auto) 0.19 K/uL (0-0.5); Eosinophils % (auto) 2.4 %; Hematocrit (blood only) 28.6 % (37-47); Hemoglobin 8.9 g/dL (12.0-16.0); Immature Granulocytes # (auto) 0.01 K/uL (0.00-0.02); Immature Granulocytes % (auto) 0.1 %; Lymphocytes # (auto) 1.56 K/uL (1.2-3.4); Lymphocytes % (auto) 19.8 %; Mean Corpuscular Hgb Conc 31.1 g/dL (32-36); Mean Corpuscular Volume 84.6 fL (80-100); Mean Platelet Volume 9.8 fL (7.4-10.4); Monocytes # (auto) 0.86 K/uL (0.11-0.59); Monocytes % (auto) 10.9 %; Neutrophils # (auto) 5.26 K/uL (1.4-6.5); Neutrophils % (auto) 66.7 %; Platelet Count 207 K/uL (130-400); RDW Coefficient of Variation 14.5 % (11.5-14.5); RDW Standard Deviation 44.9 fL (36.4-46.3); Red Blood Count 3.38 M/uL (4.2-5.4); White Blood Count 7.89 K/uL (4.8-10.8)
[2019-05-05 07:29] LABS: BUN Creatinine Ratio 13.8 (10-20); Calcium 8.9 mg/dl (8.5-10.1); Creatinine Clr Calc Pharmacy 34.3 ml/min; Est GFR (African American) 47.5; Potassium 4.4 mmol/L (3.5-5.1)
[2019-05-05] MEDS ORDERED: METOPROLOL SUCC 25MG EXT REL TAB PO SCH (09:00)
[2019-05-05] MEDS ORDERED: LISINOPRIL/HCTZ 10/12.5MG TAB PO SCH (09:00)
[2019-05-05] MEDS ORDERED: ASPIRIN 81 MG ECTAB PO SCH (09:00)
[2019-05-05] MEDS ORDERED: ISOSORBIDE MONO EXTENDED REL 60 MG TABCR PO SCH (09:00)
[2019-05-05] MEDS ORDERED: CHOLECALCIFEROL 1,000 UNITS TAB PO SCH (09:00)
[2019-05-05] MEDS ORDERED: CLOPIDOGREL BISULFATE 75 MG TAB PO SCH (09:00)
[2019-05-05] MEDS: [UNRECOGNIZED DRUG - REMARK] SCH (09:27)
--- NOTE | 2019-05-05 11:01 | Cardiology Progress Note ---
Date of Service May 05, 2019 Assessment & Plan (1) Unstable angina: (2) Coronary stent restenosis: (3) S/P right coronary artery (RCA) stent placement: Drug-eluting stent implanted 05/04/2019 without complication. Continue dual antiplatelet therapy for minimum of 6 months uninterrupted post drug-eluting stent implantation. Other cardiovascular medications will be continued as previously ordered. Appropriate use of sublingual nitroglycerin reviewed. Patient instructed to contact my office with any recurrent anginal symptoms requiring use of sublingual nitroglycerin. She will be discharged home today. Subjective Patient seen and examined at the bedside. Mild right groin ecchymosis noted. Denies chest pain or shortness of breath. Has questions regarding medical therapies and chronic shortness of breath. Denies orthopnea, PND, palpitations. No dysrhythmias on telemetry. Offers no other concerns/complaints at this time. Review of Systems Review of Systems: All systems reviewed & are unremarkable except as noted in HPI & below Physical Exam Physical Exam: General: NAD, AAO x3, well nourished. HEENT: Normocephalic. Atraumatic. Conjunctiva pink, no scleral icterus. Neck: Left-sided CEA scar. No carotid bruits, the carotid upstrokes are brisk. No JVD. No HJR Heart: Regular normal S-1 and S-2 no S-3 or S-4 gallop. No murmurs or rub appreciated. PMI is not displaced. No RV heave. Lungs: Clear bilateral without rales , rhonchi, or wheeze. Abdomen: Normal bowel sounds. Soft. Nontender. No masses or organomegaly. No abdominal bruits. Extremities: Right groin ecchymosis. No hematoma. No clubbing, cyanosis, or edema. Pulses: radial=2/4, Dorsalis pedis =2/4, posterior tibial=2/4. Neuro: Cranial nerves grossly intact. No focal motor deficit. Results & Data Vital Signs (Past 12 Hours) Vital Signs Temp Pulse Pulse Resp BP BP Pulse Ox 05/05/19 08:16 56 L 05/05/19 07:35 36.8 C 62 19 152/76 H 93 05/05/19 03:24 36.9 C 69 17 148/67 H 98 05/04/19 23:29 37.1 C 74 18 116/64 90 Laboratory Results Laboratory Results - last 24 hr 05/04/19 05/04/19 05/05/19 11:11 12:52 06:40 WBC 7.89 RBC 3.38 L Hgb 8.9 L Hct 28.6 L MCV 84.6 MCH 26.3 MCHC 31.1 L RDW Std Deviation 44.9 RDW Coeff of Ariane 14.5 Plt Count 207 MPV 9.8 Immature Gran % (Auto) 0.1 Neut % (Auto) 66.7 Lymph % (Auto) 19.8 Worth % (Auto) 10.9 Eos % (Auto) 2.4 Baso % (Auto) 0.1 Immature Gran # (Auto) 0.01 Neut # (Auto) 5.26 Lymph # (Auto) 1.56 Worth # (Auto) 0.86 H Eos # (Auto) 0.19 Baso # (Auto) 0.01 Activ Coag Time Kaolin 230 H Sodium Potassium Chloride Carbon Dioxide Anion Gap BUN Creatinine Est Cr Clr Drug Dosing Est GFR ( Amer) Est GFR (Non-Af Amer) BUN/Creatinine Ratio Glucose Calcium Hepatitis C Ab Screen Neg 05/05/19 06:40 WBC RBC Hgb Hct MCV MCH MCHC RDW Std Deviation RDW Coeff of Ariane Plt Count MPV Immature Gran % (Auto) Neut % (Auto) Lymph % (Auto) Worth % (Auto) Eos % (Auto) Baso % (Auto) Immature Gran # (Auto) Neut # (Auto) Lymph # (Auto) Worth # (Auto) Eos # (Auto) Baso # (Auto) Activ Coag Time Kaolin Sodium 142 Potassium 4.4 Chloride 109 H Carbon Dioxide 28 Anion Gap 5.0 BUN 18 Creatinine 1.30 H Est Cr Clr Drug Dosing 34.3 Est GFR ( Amer) 47.5 Est GFR (Non-Af Amer) 41.0 BUN/Creatinine Ratio 13.8 Glucose 90 Calcium 8.9 Hepatitis C Ab Screen (1) Coronary stent restenosis Encounter type: subsequent encounter Qualified Code(s): T82.855D - Stenosis of coronary artery stent, subsequent encounter
[2019-05-05 11:04] VITALS: BP 134/67; TEMP 98.1; O2SAT 97
--- NOTE | 2019-05-05 11:13 | Discharge Summary ---
Date of Service May 05, 2019 Admission HPI Per Admitting Provider Patient admitted for observation after diagnostic cardiac catheterization demonstrating severe right coronary artery in-stent restenosis. Admission Exam Per Admitting Provider General: NAD, AAO x3, well nourished. HEENT: Normocephalic. Atraumatic. Conjunctiva pink, no scleral icterus. Neck: Right-sided CEA scar. No carotid bruits, the carotid upstrokes are brisk. No JVD. No HJR Heart: Regular normal S- 1 and S-2 no S-3 or S-4 gallop. No murmurs or rub appreciated. PMI is not displaced. No RV heave. Lungs: Clear bilateral without rales , rhonchi, or wheeze. Abdomen: Normal bowel sounds. Soft. Nontender. No masses or organomegaly. No abdominal bruits. Extremities: No clubbing, cyanosis, or edema. Pulses: radial=2/4, posterior tibial=2/4. Neuro: Cranial nerves grossly intact. No focal motor deficit. Principal Diagnosis Unstable angina, in-stent restenosis, status post drug-eluting stent implantation to the right coronary artery. Discharge Data Allergies Allergy/AdvReac Type Severity Reaction Status Date / Time No Known Allergies Allergy Verified 01/07/19 22:39 Consultations 05/04/19 12:06 Consult Cardiac Rehabilitation Routine Procedures Performed Operation Date: 05/03/19 09:30 <No data on this case meets the specified criteria> Operation Date: 05/04/19 09:30 Actual Procedures p Cath, Left with Cors and Vent - Ra Williamson DO s Cineradiography w/Routine Exam - DO yoon Sánchez Drug Eluting Stent SGl Vessel - Blayne Nassar MD Ordered Studies 05/03/19 07:15 CL Cath Imgs for PACS use only Routine 05/04/19 07:14 CL Cath Imgs for PACS use only Urgent Hospital Course (1) Unstable angina: (2) Coronary stent restenosis: (3) S/P right coronary artery (RCA) stent placement: Drug-eluting stent implanted 05/04/2019 without complication. Continue dual antiplatelet therapy for minimum of 6 months uninterrupted post drug-eluting stent implantation. Other cardiovascular medications will be continued as previously ordered. Appropriate use of sublingual nitroglycerin reviewed. Patient instructed to contact my office with any recurrent anginal symptoms requiring use of sublingual nitroglycerin. She will be discharged home today. Total Time Total Time Spent Total Time Spent (In Minutes): 35 Total Time Includes: Examination of the Patient, Discharge Planning and Medication Reconciliation Discharge Plan Discharge Items Patient Disposition: Home - Self-Care Reason For Visit: CHEST PAIN, CAD Discharge Diagnosis: Unstable angina status post cardiac catheterization demonstrating right coronary artery in-stent restenosis. Patient treated with drug-eluting stent implantation to the right coronary artery. Discharge Goals: Improve disease control Activity: Per 'Additional Instructions' section Non-emergency contact: Primary Care Provider and Billing Collections Specialist Call non-emergency contact if: you have any medication questions, your pain is worsening and your pain is unusual for you Follow-up/Referrals: Marie Yuen MD [Primary Care Provider] - Diet: Heart Healthy Add Provider Instructions: ACTIVITY RECOMMENDATIONS: It is common to feel weak and fatigue for a few days. * Do not drive or operate any motorized equipment for the next three days. * Limit stair usage (2 or 3 trips a day only) for the next three days. * Do not lift anything heavier than 10 pounds for the next three days. * Do not engage in vigorous exercise or any sports for the next five days. * You may shower the day after your procedure, but do not immerse the area for three days. Cleanse the site gently with soap and water. SPECIAL CARE INSTRUCTIONS: * You may replace the pressure dressing or band-aid the morning after the procedure. * After your procedure, it is normal to have a small bruise or small lump at the site. Examine your site daily for any change in the bruise or lump, redness, swelling, drainage or numbness. Notify your doctor if any change. BLEEDING: * If there is a small amount of bleeding at the site, lie down and apply firm pressure with a clean cloth for ten minutes. When the bleeding stops, lie quietly keeping the procedure limb straight for six hours. Notify your doctor as soon as possible. * If the bleeding does not stop after ten minutes or if there is a large amount of bleeding or spurting, call 911 immediately. Continue to lie down and hold firm pressure until help arrives. SKIN IRRITATION: * You may experience some redness and/or swelling in the area where radiation was administered. If any skin irritation occurs, please contact your family physician. FOLLOW UP VISIT: Keep any scheduled doctor appointments. Prescriptions: Continued nitroglycerin 0.4 mg tablet, sublingual 0.4 mg SL Q5M PRN (Reason: chest pain) RF: 0 Oxygen Home Liters Per Minute .ROUTE .MEDSUPPLY Qty: 1 RF: 0 Incruse Ellipta 62.5 mcg/actuation Blister With Device 1 inh INHALATION QAM RF: 0 atorvastatin 80 mg Tablet 80 mg PO QPM RF: 0 aspirin [Ecotrin Low Strength] 81 mg tablet,delayed release (DR/EC) 81 mg PO QPM RF: 0 metoprolol succinate 25 mg tablet extended release 24 hr 25 mg PO QAM RF: 0 clopidogrel 75 mg Tablet 75 mg PO QAM RF: 0 isosorbide mononitrate 60 mg tablet extended release 24 hr 60 mg PO QAM RF: 0 lisinopril-hydrochlorothiazide 10-12.5 mg tablet 1 tab PO QAM RF: 0 oxycodone-acetaminophen 5-325 mg Tablet 1 tab PO Q6H PRN (Reason: Pain) RF: 0 albuterol sulfate [Ventolin HFA] 90 mcg/actuation Hfa Aerosol Inhaler 2 puff INHALATION QID PRN (Reason: Shortness Of Breath) RF: 0 cholecalciferol (vitamin D3) [Vitamin D3] 2,000 unit Capsule 2,000 unit PO DAILY RF: 0 Vitron-C 65 mg iron- 125 mg Tablet,Delayed Release (Dr/Ec) 65 - 125 tab PO DAILY RF: 0 Stand-Alone Forms: [facility] Discharge Orders: Discharge Order (Routine); Ordered 05/05/19 Ordered By: Ra Williamson Admission Data Admit Date/Time: 05/04/19 10:58 Attending Provider: Ra Williamson Admit Provider: Ra Williamson Primary Care Provider: Marie Yuen Service: Telemetry Other Pending Studies at Discharge: No
[2019-05-05 11:14] VITALS: PULSE 86
== END 2019-05-05 11:28 | disposition home or self-care (01) ==
LOC: CC 08:14 → 2S 08:14